=== PATIENT | female | born 1980 | race Caucasian/White ===

== ENCOUNTER 2020-08-25 08:25 | Outpatient (REF) | payer MEDICAID, SELFPAY ==
--- NOTE | 2020-08-25 09:24 | MHC.AU.P13 ---
Adult Audiological Evaluation Date of Visit: 08/25/20 Reason for Appointment: Ms. Hughes reports that she sometimes feels that she cannot hear well. Does patient feel they have a hearing loss?: Unsure Has hearing been tested previously?: No Hearing Handicap Inventory: HHIE SCORE: 6 Based on HHIE score, patient has: No perceived hearing handicap Medical History: Medical History: Unremarkable Medical History Medical History (Other): Seasonal/environmental allergies Medication List: Albuterol Proair inhaler, Vitamin C Otoscopy: Right Ear: Unremarkable Left Ear: Unremarkable Tympanometry: Right Ear: Normal Middle Ear System (Type A) Left Ear: Normal Middle Ear System (Type A) Hearing Evaluation: Transducer(s) Used: Insert Earphones, Bone Conduction Method: Conventional Audiometry Stimuli Used: Pure Tones Right Ear: Description of Hearing: Normal hearing from 250-8000 Hz. Left Ear: Description of Hearing: Normal hearing from 250-8000 Hz. Speech Recognition Threshold (SRT): Method Used: Monitored Live Voice Stimuli Used: Spondee Words Right Ear: 5 dBHL Left Ear: 10 dBHL Word Discrimination: Method: Recorded Lists Word Lists Used: NU-6 Right Ear: 96% at 50 dBHL Left Ear: 92% at 50 dBHL Recommendations: Recommendations: No further audiological action is indicated at this time. Audiological re-evaluation if changes are noted. Diagnosis: Primary Diagnosis: H93.293 Abnormal Auditory Perception Services Performed: Services Performed: Comprehensive Audiological Evaluation (CPT 28086) Tympanometry (CPT 32500) Signature: Provider: Oskar Adam, CCC-A
== END 2020-08-25 08:26 | disposition home or self-care (01) ==
LOC: HO.SH 08:25
PROVIDERS: PCP Internal Medicine; Referring Provider General Practice; Visit Provider General Practice
DX: H93.293 Other abnormal auditory perceptions, bilateral (principal)
CPT/HCPCS: 92557; 92567

== ENCOUNTER 2020-10-29 12:06 | Outpatient (REF) | payer MEDICAID, SELFPAY ==
[2020-10-29 12:55] LABS: Glucose Urine UA NEG (NEG); Leukocyte Esterase Urine NEG (NEG); Nitrite Urine NEG (NEG); PH 5.5 (5.0-8.0); Specific Gravity - Urine >= 1.030 (1.005-1.025); Urine Blood 3+ (NEG); Urine Ketones NEG (NEG); Urine Protein NEG (NEG-TRACE)
[2020-10-29 12:57] LABS: Appearance Urine CLEAR; Color Urine YELLOW
[2020-10-29 13:09] LABS: Bacteria Urine TRACE /LPF; Squamous Epithelial Cell Urine 1+ /LPF; WBC Urine 0-2 /HPF (0-4)
[2020-10-29 13:19] LABS: Creatinine Urine 116.34 mg/dL; Microalbum/Creatinine Ratio Ur 38.6 ug/mg cr
[2020-10-29 13:47] LABS: Blood Urea Nitrogen 20 mg/dL (9-16); Calcium 9.3 mg/dL (8.4-10.2); Estimated Glomerular Filt Rate > 60; Phosphorus 3.3 mg/dL (2.7-4.5)
[2020-10-29 13:56] LABS: Anion Gap 10 (12-20); Carbon Dioxide 27 mmol/L (22-29); Chloride 106 mmol/L (96-108); Potassium 4.5 mmol/L (3.3-5.1); Sodium 138 mmol/L (135-145)
[2020-10-29 15:39] LABS: Renal w Reflex Lab Use Only Order verified
== END 2020-10-29 12:07 | disposition home or self-care (01) ==
LOC: HO.LAB 12:06
PROVIDERS: Visit Provider Internal Medicine Nephrology
DX: R31.9 Hematuria, unspecified (principal)
CPT/HCPCS: 36415; 80051; 81001; 82043; 82310; 82565; 84100; 84520

== ENCOUNTER 2020-11-20 09:10 | Outpatient (REF) | payer MEDICAID, SELFPAY ==
--- NOTE | 2020-11-20 09:15 | EMG_ITS ---
Bilateral median and ulnar motor and sensory studies were performed. Bilateral radial sensory studies were performed and paraspinal muscles were tested. IMPRESSION: Mild bilateral median neuropathy across carpal tunnel. MD DONNY Mckeon/TRISH / [id number]
== END 2020-11-20 09:11 | disposition home or self-care (01) ==
LOC: HO.NEURO 09:10
PROVIDERS: Visit Provider Internal Medicine
DX: G56.03 Carpal tunnel syndrome, bilateral upper limbs (principal)
CPT/HCPCS: 95886; 95911

== ENCOUNTER 2020-12-16 11:52 | Emergency (ER) | payer MEDICAID, SELFPAY ==
--- NOTE | 2020-12-16 | ECG_ITS ---
Test Reason : CHEST PAIN Blood Pressure : / mmHG Vent. Rate : 080 BPM Atrial Rate : 080 BPM P-R Int : 132 ms QRS Dur : 070 ms QT Int : 372 ms P-R-T Axes : 024 015 031 degrees QTc Int : 429 ms Normal sinus rhythm Cannot rule out Anterior infarct , age undetermined Abnormal ECG No previous ECGs available Referred By: Generic ED Physician Electronically Signed By:SIVAN MENDEZ MD
--- NOTE | ~2020-12-16 | XR_ITS ---
EXAMINATION: XR CHEST CLINICAL INFORMATION: Chest pain COMPARISON: Chest x-ray December 31, 2019 TECHNIQUE: 2 views of the chest were obtained. FINDINGS: Cardiac silhouette is normal in size. The lungs are well aerated. There is no lobar consolidation. No pleural effusion or pneumothorax. No acute osseous abnormality. XR/XR chest 2V IMPRESSION: No acute pulmonary pathology.
[2020-12-16 11:54] VITALS: BP 141/92; PULSE 79; RESP 16; TEMP 36.7; O2SAT 98; BMI 41.5
[2020-12-16 14:10] VITALS: PULSE 78
[2020-12-16 14:13] VITALS: BP 143/81; PULSE 76; RESP 16; TEMP 36.7; O2SAT 100
--- NOTE | 2020-12-16 14:34 | ED_ITS ---
HPI - Chest Pain General Chief Complaint: Chest Pain Stated Complaint: chest pain Time Seen by Provider: 12/16/20 14:05 Source: patient Mode of arrival: ambulatory Limitations: no limitations History of Present Illness HPI narrative: 40-year-old female with a past medical history of asthma here with complaints of intermittent chest pain since yesterday. The patient tells me she was seen by her primary care doctor referred into the emergency department for evaluation. She tells me she has episodes of chest pain which, on during rest or with exertion. Comes on sharp and lasts several seconds and then self-resolved. No associated shortness of breath, dizziness, nausea, vomiting, diaphoresis. The patient tells me it is very sharp and hurts when she takes a deep breath. No leg swelling or pain. Patient returned from [place] last Tuesday after a [address] No OCPs. No history of DVTs or PE and no family history MD complaint: chest heaviness Related Data Allergies Allergy/AdvReac Type Severity Reaction Status Date / Time No Known Allergies Allergy Unverified 05/29/20 17:52 Review of Systems Review of Systems: Yes all other systems are reviewed and are negative Constitutional: Constitutional: Reports no additional constitutional complaints, Denies body ache(s), Denies chills, Denies fever(s), Denies headache(s) and Denies weakness Eyes: Eyes: Reports no additional eye complaints and Denies change in vision ENT: Reports system reviewed and no additional complaints, except as documented, Denies dizziness, Denies headache(s), Denies nasal congestion, Denies nasal discharge and Denies neck pain Cardiovascular: Cardiovascular: Reports no additional cardiovascular complaints, Reports chest pain, Denies leg edema and Denies dyspnea Respiratory: Respiratory: Reports no additional respiratory complaints, Denies cough and Denies dyspnea Gastrointestinal: Gastrointestinal: Reports no additional gastrointestinal complaints, Denies abdominal pain, Denies diarrhea, Denies nausea and Denies vomiting Genitourinary: Genitourinary: Reports no additional female genitourinary complaints and Denies urinary incontinence Musculoskeletal: Musculoskeletal: Reports no additional musculoskeletal complaints, Denies back pain, Denies arthralgias, Denies joint swelling, Denies neck pain, Denies numbness and Denies tingling Integumentary/Breasts: Skin/Breast: Reports system reviewed and no additional complaints, except as docu and Denies rash Neurologic: Reports system reviewed and no additional complaints, except as documented, Denies Abnormal speech present, Denies dizziness, Denies headache(s), Denies numbness, Denies tingling and Denies weakness PMFSH Past Medical History Attestation statement: The following information was validated with the patient. Source: old records reviewed and nursing notes reviewed Medical History Asthma Social History Social History Alcohol intake: never Smoking Status: Never smoker Use of substances other than those prescribed or required for medical reasons: No Advance Directives: No Advance Directives Information Provided: No Physical Exam Vital Signs: Vital Signs: Last Vital Signs Temp 98.0 F 12/16/20 14:13 Pulse 75 12/16/20 15:44 Resp 19 12/16/20 15:44 BP 110/52 L 12/16/20 15:44 Pulse Ox 97 12/16/20 15:44 Body Mass Index 41.5 Const: General: cooperative, healthy appearing, comfortable and no acute distress Orientation/consciousness: patient oriented x3 Limitations: no limitations HENMT: Head: Yes normal to inspection Ears: hearing grossly normal bilaterally General nose exam: Normal external nose present Face and sinus: Yes normal facial exam Mouth: Normal oral and palatal mucosa present Throat: Yes posterior oropharynx normal Eyes: General: appearance normal, both eyes and all related structures Pupils: Equal, round and reactive pupils present Neck: Neck: Yes normal visual inspection Chest: Chest palpation & inspection: normal inspection of the chest Resp: Effort & Inspection: normal respiratory effort Auscultation: clear to auscultation bilaterally Cardio: Rate: regular rate Rhythm: regular rhythm Peripheral pulses: Peripheral pulses 2+ throughout GI: Inspection: Yes normal to inspection Palpation (GI): Soft to palpation and nontender Auscultation: normal bowel sounds Back/Spine/Pelvis: Thoracic/Lumbar Spine: thoracic and lumbar spine normal to inspection Skin: General skin exam: no rashes or lesions noted Neuro: General: patient oriented x3, no focal motor deficits and normal sensation to monofilament Cranial nerves: Yes Equal, round and reactive pupils present Cognition (Neuro): normal cognition Speech: No Abnormal speech present Gait exam (Neuro): Normal gait present Motor exam (neuro): 5/5 motor strength present throughout Extrem: General: Yes normal to inspection, Yes no pedal edema and Yes no calf tenderness Course Course Course Narrative: 40-year-old female here with intermittent chest pain since yesterday. No associated symptoms. Did recently have a long car ride. Less likely ACS but can consider PE. Will need labs, EKG, chest x-ray 1515-labs, imaging and EKG all unremarkable. The patient tells me her last episode of chest pain occurred at 08:00 this morning and she does not have any current chest pain. Recommended follow-up with primary care doctor. Reviewed worrisome signs and symptoms when to return to emergency department. Comfortable discharge home. MDM - Chest Pain MDM Narrative Medical decision making narrative: ACS, PE Less likely ACS with symptoms greater than 8 hours, EKG which shows no ischemic changes and a negative troponin. Less likely PE with negative D-dimer, no hypoxia, tachycardia, tachypnea, clinical signs or symptoms of a DVT Medical Records Data Attestation: I reviewed the patient's medical records. Lab Data Attestation: I reviewed the patient's lab results. Result diagrams: 12/16/20 14:34 12/16/20 14:34 Labs: Lab Results 12/16/20 12/16/20 12/16/20 Range/Units 14:34 14:34 14:34 WBC 8.1 (4.8-10.8) X10*3/uL RBC 4.25 (4.20-5.50) X10*6/uL Hgb 11.6 L (12.0-16.0) g/dl Hct 36.0 L (37-47) % MCV 84.7 (80-98) fL MCH 27.3 (27.0-33.0) pg MCHC 32.2 (31.0-35.0) g/dl RDW 13.2 (11.0-16.0) % Plt Count 261 (160-400) X10*3/uL MPV 10.8 (9.4-12.3) fL Immature Gran % (Auto) 0.2 (0.0-0.4) % Neut % (Auto) 61.8 (45-73) % Lymph % (Auto) 30.0 (20-40) % [place] % (Auto) 5.3 (2-11) % Eos % (Auto) 2.2 (0-4) % Baso % (Auto) 0.5 (0-2) % Lymph # (Auto) 2.4 (1.2-4.9) X10*3/uL [place] # (Auto) 0.4 (0.1-1.2) X10*3/uL Eos # (Auto) 0.2 (0.0-0.4) X10*3/uL Baso # (Auto) 0.0 (0.0-0.2) X10*3/uL Abs Immat Gran (auto) 0.02 (0.00-0.03) X10*3/uL Absolute Neuts (auto) 5.0 (2.0-8.3) X10*3/uL Absolute Nucleated RBC 0.000 (0.0-0.012) X10*3/uL Nucleated RBC % (auto) 0.0 (0.0-0.2) /100WBC PT 14.6 H (10.8-13.0) SEC INR 1.2 H (0.9-1.1) D-Dimer < 200 NG/ML Sodium (135-145) mmol/L Potassium (3.3-5.1) mmol/L Chloride (96-108) mmol/L Carbon Dioxide (22-29) mmol/L Anion Gap (12-20) BUN (9-16) mg/dL Creatinine (0.5-1.4) mg/dL Estim Creat Clear Calc Estimated GFR Random Glucose (60-115) mg/dL Calcium (8.4-10.2) mg/dL Magnesium (1.6-2.6) mg/dL Total Bilirubin (0.0-1.0) mg/dL Direct Bilirubin (0.0-0.5) mg/dL AST (5-31) U/L ALT (0-31) U/L Alkaline Phosphatase (39-117) U/L Troponin I High Sens (<3.5-17.0) ng/L Total Protein (6.5-8.0) g/dL Albumin (3.5-5.0) g/dL COVID-19 ([facility]) Negative (Negative) COVID-19 Clin Com See Note 12/16/20 12/16/20 Range/Units 14:34 14:34 WBC (4.8-10.8) X10*3/uL RBC (4.20-5.50) X10*6/uL Hgb (12.0-16.0) g/dl Hct (37-47) % MCV (80-98) fL MCH (27.0-33.0) pg MCHC (31.0-35.0) g/dl RDW (11.0-16.0) % Plt Count (160-400) X10*3/uL MPV (9.4-12.3) fL Immature Gran % (Auto) (0.0-0.4) % Neut % (Auto) (45-73) % Lymph % (Auto) (20-40) % [place] % (Auto) (2-11) % Eos % (Auto) (0-4) % Baso % (Auto) (0-2) % Lymph # (Auto) (1.2-4.9) X10*3/uL [place] # (Auto) (0.1-1.2) X10*3/uL Eos # (Auto) (0.0-0.4) X10*3/uL Baso # (Auto) (0.0-0.2) X10*3/uL Abs Immat Gran (auto) (0.00-0.03) X10*3/uL Absolute Neuts (auto) (2.0-8.3) X10*3/uL Absolute Nucleated RBC (0.0-0.012) X10*3/uL Nucleated RBC % (auto) (0.0-0.2) /100WBC PT (10.8-13.0) SEC INR (0.9-1.1) D-Dimer NG/ML Sodium 139 (135-145) mmol/L Potassium 4.8 (3.3-5.1) mmol/L Chloride 106 (96-108) mmol/L Carbon Dioxide 26 (22-29) mmol/L Anion Gap 12 (12-20) BUN 16 (9-16) mg/dL Creatinine 0.66 (0.5-1.4) mg/dL Estim Creat Clear Calc 120.2 Estimated GFR > 60 Random Glucose 84 (60-115) mg/dL Calcium 8.9 (8.4-10.2) mg/dL Magnesium 2.1 (1.6-2.6) mg/dL Total Bilirubin 0.4 (0.0-1.0) mg/dL Direct Bilirubin < 0.2 (0.0-0.5) mg/dL AST 29 (5-31) U/L ALT 21 (0-31) U/L Alkaline Phosphatase 64 (39-117) U/L Troponin I High Sens 4.2 (<3.5-17.0) ng/L Total Protein 7.3 (6.5-8.0) g/dL Albumin 3.8 (3.5-5.0) g/dL COVID-19 ([facility]ISHA) (Negative) COVID-19 Clin Com Imaging Data Chest x-ray: Attestation: I personally reviewed and interpreted this imaging study as follows: Radiologist's impression: Negative .NO PTX/PNA. ECG Data ECG #1: Attestation: I personally reviewed and interpreted this ECG as follows: ECG interpretation date: 12/16/20 ECG interpretation time: 11:58 Interpretation: Normal sinus rhythm, rate of 80, normal AL, normal QRS, normal QTC Discharge Plan Discharge Clinical Impression: Atypical chest pain Patient Disposition: Home, Self-Care Instructions: Chest Pain (ED) Additional Instructions: Your EKG, x-ray and lab work all looked very good today. Recommend following up with primary care doctor for continued symptoms. Return here for severe chest pain, shortness of breath for any new or concerning symptoms as discussed Referrals: Naomi Alfonso MD [Primary Care Provider] - 2 days Interventions: ED Discharge Assessment Last Done: 12/16/20 15:47 Discharge Date/Time: 12/16/20 15:48
[2020-12-16 14:45] LABS: MANUAL DIFF FLAG NO
[2020-12-16 14:46] LABS: Basophils Percent Auto 0.5 % (0-2); Eosinophils Absolute Auto 0.2 X10*3/uL (0.0-0.4); Eosinophils Percent Auto 2.2 % (0-4); Hemoglobin 11.6 g/dl (12.0-16.0); Imm Gran Abs Auto 0.02 X10*3/uL (0.00-0.03); Imm Gran Pct Auto 0.2 % (0.0-0.4); Lymphocytes Absolute Auto 2.4 X10*3/uL (1.2-4.9); Mean Corpuscular HGB Conc 32.2 g/dl (31.0-35.0); Mean Corpuscular Hemoglobin 27.3 pg (27.0-33.0); Mean Corpuscular Volume 84.7 fL (80-98); Mean Platelet Volume 10.8 fL (9.4-12.3); Monocytes Absolute Auto 0.4 X10*3/uL (0.1-1.2); Monocytes Percent Auto 5.3 % (2-11); Neutrophils Percent Auto 61.8 % (45-73); Platelet Count 261 X10*3/uL (160-400); Red Blood Count 4.25 X10*6/uL (4.20-5.50); Red Cell Distribution Width 13.2 % (11.0-16.0); White Blood Count 8.1 X10*3/uL (4.8-10.8)
[2020-12-16 14:55] LABS: INTERNATIONAL NORM RATIO 1.2 (0.9-1.1); Prothrombin Time 14.6 SEC (10.8-13.0)
[2020-12-16 14:58] LABS: D Dimer < 200 NG/ML
[2020-12-16 15:02] LABS: COVID-19 Test Negative (Negative)
[2020-12-16 15:11] LABS: Alanine Aminotransferase 21 U/L (0-31); Albumin Level 3.8 g/dL (3.5-5.0); Alkaline Phosphatase 64 U/L (39-117); Anion Gap 12 (12-20); Aspartate Amino Transferase 29 U/L (5-31); Bilirubin Direct < 0.2 mg/dL (0.0-0.5); Bilirubin Total 0.4 mg/dL (0.0-1.0); Blood Urea Nitrogen 16 mg/dL (9-16); Calcium 8.9 mg/dL (8.4-10.2); Carbon Dioxide 26 mmol/L (22-29); Chloride 106 mmol/L (96-108); Creatinine Clr Calc Pharmacy 120.2; Estimated Glomerular Filt Rate > 60; Glucose Random 84 mg/dL (60-115); Magnesium 2.1 mg/dL (1.6-2.6); Potassium 4.8 mmol/L (3.3-5.1); Sodium 139 mmol/L (135-145); Total Protein 7.3 g/dL (6.5-8.0)
[2020-12-16 15:13] LABS: Troponin-I High Sensitivity 4.2 ng/L (<3.5-17.0)
[2020-12-16 15:44] VITALS: BP 110/52; PULSE 75; RESP 19; O2SAT 97
== END 2020-12-16 15:48 | disposition home or self-care (01) ==
PROVIDERS: Nurse Practitioner Family; Emergency Provider Emergency Medicine; PCP Internal Medicine
DX: R07.89 Other chest pain (principal); Z20.822 Contact with and (suspected) exposure to COVID-19
CPT/HCPCS: 36415; 71046; 80048; 80076; 83735; 84484; 85025; 85379; 85610; 87635; 93005; 99284

== ENCOUNTER → 2020-12-31 09:18 | Outpatient (BNVA) | payer MEDICAID, SELFPAY | PROVIDERS: PCP Internal Medicine; Visit Provider Orthopaedic Surgery | DX: G56.03 Carpal tunnel syndrome, bilateral upper limbs (principal) | CPT/HCPCS: 99202 ==

== ENCOUNTER → 2021-04-20 09:41 | Outpatient (BNVA) | payer MEDICAID, SELFPAY | PROVIDERS: PCP Internal Medicine; Visit Provider Physician Assistant | DX: G56.03 Carpal tunnel syndrome, bilateral upper limbs (principal) | CPT/HCPCS: 99212 ==

== ENCOUNTER 2021-06-18 11:47 | Day surgery (SDC) | payer MEDICAID, SELFPAY ==
[2021-02-18 13:01] VITALS: BMI 41.5
[2021-06-18 12:15] VITALS: BP 143/86; PULSE 98; RESP 15; TEMP 37.2; O2SAT 98; BMI 41.5
--- NOTE | 2021-06-18 13:43 | MHC.SHP ---
Pre-Procedural Eval Section A Date of Service: 06/18/21 The patient is an INPATIENT: No Changes since office visit: No Cold of Flu in the past 2 weeks, No New Medical Problems, No Changes in Medication and No Patient answered all questions The History & Physical has been completed within 30 days and I have reviewed it.: Yes Section B Chief Complaint: carpal tunnel syndrome Allergies: Allergies Allergy/AdvReac Type Severity Reaction Status Date / Time No Known Allergies Allergy Verified 04/20/21 09:46 Plan I have reviewed the history and physical and performed a pertinent physical examination on my patient. No changes have occurred unless specified.
--- NOTE | 2021-06-18 13:44 | W.PM.OPN ---
Operative Note Operative Note Date of Service: 06/18/21 Narrative: Preop diagnosis: 1. Left Carpal tunnel syndrome Postop diagnosis: same Procedure: 1. Left Carpal tunnel release Surgeon: Sari Veliz MD Anesthesia: local block using 1% lidocaine with epinephrine Findings: Thickened transverse carpal ligament. EBL: Less than 5 mL Specimens: None Complications: None Disposition: Brought to recovery room in stable condition Plan: Follow-up for 7-10 days for wound check and suture removal Indications: The patient is 41 years old, with left carpal tunnel syndrome that has been unresponsive to nonoperative management. The risks and benefits of operative treatment including but not limited to risk of damage to blood vessels, nerves, tendons, infection, persistent pain, persistent symptoms, or possible need for additional surgery were discussed with the patient and the patient wishes to proceed with surgery. Procedure: Once consent was obtained a local block was performed using a combination of 1% lidocaine with epinephrine. The patient was then brought back to the operating suite and placed on the operative table in supine position. A tourniquet was applied to the proximal aspect of the left upper extremity and the limb was prepped and draped in a standard surgical fashion. Once assured that we had a good block, a 1.5 cm longitudinal incision was made centered over the carpal tunnel. The incision was made through the skin to the subcutaneous tissues using a #15 blade. Dissection was made down to the level of the transverse carpal ligament with care being taken to protect the palmar cutaneous nerve. Once the transverse carpal ligament was clearly visualized, a longitudinal incision was made in the transverse carpal ligament 1st using a #15 blade, then using tenotomy scissors under direct visualization. Care was taken to look for and protect the motor branch of the median nerve when seen in this area. Once satisfied with our carpal tunnel release the wound was copiously irrigated with normal saline and hemostasis was obtained with a brief period of local pressure. The skin edges were reapproximated with some 5.0 nylon suture material and a sterile dressing was applied. The patient appears to have tolerated the procedure well and with no complications. All digits were well vascularized at the conclusion of the case.
[2021-06-18 14:18] VITALS: BP 122/86; PULSE 107; RESP 20; TEMP 37.6; O2SAT 97
== END 2021-06-18 14:23 | disposition home or self-care (01) ==
PROVIDERS: PCP Internal Medicine; Visit Provider Orthopaedic Surgery
PROC: (CPT 64721; principal; 2021-06-18 12:50)
DX: G56.02 Carpal tunnel syndrome, left upper limb (principal); J45.909 Unspecified asthma, uncomplicated
CPT/HCPCS: 64721

== ENCOUNTER → 2021-06-30 11:30 | Outpatient (BNVA) | payer MEDICAID, SELFPAY | PROVIDERS: Visit Provider Orthopaedic Surgery | DX: G56.03 Carpal tunnel syndrome, bilateral upper limbs (principal) | CPT/HCPCS: 99212 ==

== ENCOUNTER → 2022-06-10 08:48 | Outpatient (BNVA) | payer MEDICAID, SELFPAY | PROVIDERS: PCP Internal Medicine; Referring Provider Internal Medicine; Visit Provider Internal Medicine | DX: R07.2 Precordial pain (principal) | CPT/HCPCS: 93005; 99202 ==

== ENCOUNTER 2022-12-29 13:18 | Outpatient (REF) | payer MEDICAID, SELFPAY ==
--- NOTE | ~2022-12-29 | MM_ITS ---
EXAMINATION: MM SCREENING DIGITAL BREAST TOMOSYNTHESIS, BILATERAL CLINICAL INFORMATION: Screening. Asymptomatic. The lifetime risk of breast cancer based on the Tyrer-Cuzick Model is 13%. COMPARISON: Mammography: October 17, 2019 and ultrasound of October 26, 1999 TECHNIQUE: Digital breast tomosynthesis is performed in both the craniocaudal and mediolateral oblique views along with computer-aided detection (CAD). Synthesized 2D images are generated from the tomosynthesis. FINDINGS: There are scattered areas of fibroglandular density (ACR BI-RADS breast composition Category b). There are no significant masses, abnormal calcifications, or other abnormalities. MM/MM tomosynthesis screening BI IMPRESSION: No significant changes from prior exam. ASSESSMENT: BI-RADS 1: Negative RECOMMENDATION: Routine annual mammography screening. This patient's information was entered into a reminder system with a target due date for their next mammogram.
== END 2022-12-29 13:19 | disposition home or self-care (01) ==
LOC: HO.MAMMO 13:18
PROVIDERS: Visit Provider Internal Medicine
DX: Z12.31 Encounter for screening mammogram for malignant neoplasm of breast (principal)
CPT/HCPCS: 77063; 77067

== ENCOUNTER 2023-11-13 08:29 | Emergency (ER) | payer MEDICAID, SELFPAY ==
--- NOTE | ~2023-11-13 | CT_ITS ---
EXAMINATION: CT ABDOMEN AND PELVIS WITHOUT CONTRAST CLINICAL INFORMATION: Flank pain, history of stones COMPARISON: None available. TECHNIQUE: Multidetector volumetric imaging was performed from the superior aspect of the liver through the pubic symphysis. Sagittal and coronal reformatted images were obtained on the technologist's workstation. This CT examination was performed using dose optimization techniques as appropriate, variously including the following: *Automated exposure control *Adjustment of mA and/or kV according to patient size (this includes techniques or standardized protocols for targeted exams where dose is matched to indication/reason for exam; i.e. extremities or head) *Use of iterative reconstruction technique DLP: 619 mGy-cm FINDINGS: LUNG BASES: The visualized lung bases are unremarkable. LIVER, GALLBLADDER, AND BILIARY TREE: The liver is normal in size, shape, and attenuation. No focal hepatic lesion or biliary ductal dilatation is present. The gallbladder is unremarkable with no evidence of radiopaque gallstones, gallbladder wall thickening, or obvious pericholecystic inflammatory changes. PANCREAS: Unremarkable. SPLEEN: Unremarkable. ADRENAL GLANDS: Unremarkable. KIDNEYS AND URETERS: The kidneys are normal in size, shape, and attenuation. No hydronephrosis, hydroureter, or calculi seen. No perinephric stranding. BLADDER: Unremarkable. GASTROINTESTINAL TRACT: The small and large bowel are unremarkable. The appendix is unremarkable. ABDOMINAL WALL: No significant hernia is appreciated. LYMPH NODES: Normal. VASCULAR: Unremarkable. PELVIC VISCERA: Unremarkable. 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 CT/CT abdomen pelvis wo IV con IMPRESSION: No acute findings in the abdomen or pelvis. In particular, there are no radiopaque renal or ureteral calculi. Fleischner guidelines were followed.
[2023-11-13 08:41] VITALS: BP 140/89; PULSE 82; RESP 16; TEMP 36.9; O2SAT 98; BMI 41.6
[2023-11-13 09:01] LABS: MANUAL DIFF FLAG NO
[2023-11-13 09:02] LABS: Basophils Percent Auto 0.5 % (0-2); Eosinophils Absolute Auto 0.2 X10*3/uL (0.0-0.4); Eosinophils Percent Auto 2.7 % (0-4); Hematocrit 36.1 % (37.0-47.0); Hemoglobin 11.8 g/dl (12.0-16.0); Imm Gran Abs Auto 0.01 X10*3/uL (0.00-0.03); Imm Gran Pct Auto 0.2 % (0.0-0.4); Lymphocytes Absolute Auto 1.9 X10*3/uL (1.2-4.9); Lymphocytes Percent Auto 31.7 % (20-40); Mean Corpuscular HGB Conc 32.7 g/dl (31.0-35.0); Mean Corpuscular Hemoglobin 26.9 pg (27.0-33.0); Mean Corpuscular Volume 82.4 fL (80.0-98.0); Mean Platelet Volume 10.6 fL (9.4-12.3); Monocytes Absolute Auto 0.3 X10*3/uL (0.1-1.2); Monocytes Percent Auto 5.5 % (2-11); Neutrophils Absolute Auto 3.6 x10*3/uL (2.0-8.3); Neutrophils Percent Auto 59.4 % (45-73); Platelet Count 288 X10*3/uL (160-400); Red Blood Count 4.38 X10*6/uL (4.20-5.50); Red Cell Distribution Width 13.2 % (11.0-16.0)
[2023-11-13 09:18] LABS: COVID-19 Test Negative (Negative); IDNOW Serial# 08D9AD1C; IDNOW Serial# 152EDE1D; Influenza A Negative (Negative); Influenza B2 Negative (Negative)
[2023-11-13 09:19] LABS: Alanine Aminotransferase 13 U/L (0-31); Albumin Level 3.7 g/dL (3.5-5.0); Alkaline Phosphatase 56 U/L (39-117); Anion Gap 11 (12-20); Aspartate Amino Transferase 17 U/L (5-31); Bilirubin Total 0.3 mg/dL (0.0-1.0); Blood Urea Nitrogen 18 mg/dL (9-16); Carbon Dioxide 24 mmol/L (22-29); Chloride 109 mmol/L (96-108); Creatinine Clr Calc Pharmacy 106.8; Estimated Glomerular Filt Rate > 60; Glucose Random 101 mg/dL (60-115); Sodium 140 mmol/L (135-145); Total Protein 7.2 g/dL (6.5-8.0)
[2023-11-13 12:03] VITALS: BP 128/64; PULSE 70; RESP 16; TEMP 36.7; O2SAT 98
--- NOTE | 2023-11-13 12:24 | ED_ITS ---
HPI - General Adult General Chief complaint: Abdominal Pain Stated complaint: Abd & back pain Time Seen by Provider: 11/13/23 12:24 Source: patient Mode of arrival: ambulatory Limitations: no limitations History of Present Illness HPI narrative: Patient is a 43 year old assigned female at with no reported medical history presenting to the emergency department today with bilateral flank pain. Patient states that over the last couple of days she has had bilateral flank pain that radiates into her abdomen. Patient denies any dizziness, lightheadedness, nausea, vomiting, fever, chills, blurry vision, double vision, loss of vision, chest pain, difficulty breathing, shortness of breath, back pain, night sweats, pain with urination, increased urinary frequency, increased urinary urgency, blood in her urine or stool, syncope or a near syncopal episode, recent trauma or falls, bowel incontinence, bladder incontinence, bowel retention, bladder retention, or any other complaints at this time. Onset (ago): day(s) (2) Severity: mild Severity scale (1-10): 3 Relieving factors: none Exacerbating factors: none Associated symptoms: denies other symptoms Treatments prior to arrival: none Related Data Home Medications Medication Instructions Recorded Confirmed cholecalciferol (vitamin D3) 50 50 mcg PO DAILY 06/10/22 06/10/22 mcg (2,000 unit) capsule Allergies Allergy/AdvReac Type Severity Reaction Status Date / Time No Known Allergies Allergy Verified 11/01/23 15:20 Review of Systems 2 Constitutional: Constitutional: Reports no additional constitutional complaints, Denies chills, Denies fever(s) and Denies night sweats Eyes: Eyes: Reports no additional eye complaints, Denies blurry vision, Denies change in vision, Denies diplopia, Denies eye discharge, Denies loss of vision and Denies eye pain ENT: Denies dizziness Cardiovascular: Cardiovascular: Reports no additional cardiovascular complaints, Denies chest pain, Denies lightheadedness, Denies Loss of Consciousness and Denies dyspnea Respiratory: Respiratory: Reports no additional respiratory complaints and Denies dyspnea Gastrointestinal: Gastrointestinal: Reports no additional gastrointestinal complaints, Denies abdominal pain, Denies melena, Denies hematochezia, Denies change in bowel habits and Denies change in stool character Genitourinary: Genitourinary: Denies hematuria, Denies urinary frequency, Denies dysuria, Denies urinary incontinence, Denies urinary hesitancy and Denies urinary urgency Comments: bilateral flank pain Musculoskeletal: Musculoskeletal: Reports no additional musculoskeletal complaints, Denies numbness and Denies tingling Neurologic: Denies dizziness, Denies loss of vision, Denies numbness and Denies tingling Psychiatric: Psychiatric: Reports no additional psychiatric complaints Endocrine: Endocrine: Reports no additional endocrine complaints Hematologic/Lymphatic: Hematologic/Lymphatic: Reports no additional hematologic/lymphatic complaints Allergic/Immunologic: Allergic/Immunologic: Reports no additional allergic/immunologic complaints PMFSH Past Medical History Attestation statement: The following information was validated with the patient. Source: old records reviewed and nursing notes reviewed Medical History Asthma Surgical History History of carpal tunnel surgery of left wrist Family History Family History Father No problems noted. Mother Stroke Social History Social History Alcohol intake: never Patient Tobacco Use Status: Never used Tobacco Smoked in Last 30 Days: No Use of substances other than those prescribed or required for medical reasons: No Advance Directives: No Advance Directives Information Provided: Yes Patient : No Current occupational status: unemployed Current occupation: right handed Physical Exam ED Vital Signs: Vital Signs - 24 hr 11/13/23 08:41 11/13/23 12:03 Temperature 98.4 F 98.0 F Pulse Rate 82 70 Respiratory Rate 16 16 Blood Pressure 140/89 H 128/64 Pulse Oximetry 98 98 Oxygen Delivery Method Room Air Room Air BMI result Body Mass Index 41.6 Const General: cooperative, no acute distress, alert and awake Nutritional Appearance: well nourished Orientation/consciousness: patient oriented x3 Limitations: no limitations HENMT Head: Yes normal to inspection and Yes atraumatic Ears: hearing grossly normal bilaterally and external ears normal General nose exam: Normal external nose present, no nasal discharge noted and no epistaxis Face and sinus: Yes normal facial exam, No abrasion and No laceration Mouth: Normal oral and palatal mucosa present, no drooling and no muffled voice Eyes General: appearance normal, both eyes and all related structures Periorbital: periorbital findings normal Eyelids: Yes eyelids normal Conjunctivae: conjunctivae normal Pupils: Equal, round and reactive pupils present EOM: EOMs intact bilaterally Neck Neck: Yes normal visual inspection, Yes full ROM and Yes no lymphadenopathy Chest Chest palpation & inspection: normal inspection of the chest Resp Effort & Inspection: normal respiratory effort and able to speak in complete sentences GI Inspection: Yes normal to inspection Palpation (GI): Soft to palpation, not firm, nontender and no guarding Neuro General: patient oriented x3 and moves all extremities Cranial nerves: Yes Equal, round and reactive pupils present Cognition (Neuro): normal cognition Motor exam (neuro): 5/5 motor strength present throughout Sensory Exam: Normal double simultaneous stimulation for sensation Coordination: [id number] test normal Extrem General: Yes normal to inspection, Yes full ROM and Yes capillary refill normal Psych Appearance: grossly normal Mental Status: mental status grossly normal Affect: normal affect Attitude: cooperative Thought process: Normal thought process present Thought content: Normal thought content present Insight: Good insight present (Psych) Medications Administered Generic Name Dose Route Start Last Admin Trade Name Freq PRN Reason Stop Dose Admin Sodium Chloride 1,000 mls @ 999 mls/hr 11/13/23 12:30 11/13/23 12:32 Ns IV 11/13/23 13:30 999 mls/hr .[id number] KEVIN Administration Discontinued Medications Generic Name Dose Route Start Last Admin Trade Name Freq PRN Reason Stop Dose Admin Ketorolac Tromethamine 15 mg 11/13/23 12:25 11/13/23 12:36 Ketorolac Tromethamine 15 Mg/Ml Vial IVPUSH 11/13/23 12:26 15 mg ONCE ONE Administration Pantoprazole Sodium 40 mg 11/13/23 12:25 11/13/23 12:36 Pantoprazole Sodium 40 Mg/10 Ml Vial IVPUSH 11/13/23 12:26 40 mg ONCE ONE Administration Medical Decision Making Medical Decision Making [facility] Narrative: Patient is a 43 year old assigned female at with no reported medical history presenting to the emergency department today with bilateral flank pain and abdominal pain. Patient's physical exam was unremarkable. Patient's blood work was unremarkable. Patient's urine showed no acute process. Patient's abdomen/pelvis CT showed no acute process. I explained my physical exam findings as well as all test results to the patient. I answered all questions asked by the patient. I stressed the importance of the patient taking her medication as prescribed. I stressed the importance of the patient following up with her primary care provider. I stressed the importance of the patient returning to the emergency department immediately if her symptoms were to worsen or if she were to develop any dizziness, shortness of breath, difficulty breathing, chest pain, blurry vision, loss of vision, nausea, vomiting, abdominal pain, fever, chills, back pain, or any other complaints. Patient verbalized agreement and understanding with this treatment plan and discharge. Differential Diagnosis Differential Diagnoses: The differential diagnosis associated with the presentation includes Flank pain Kidney stone UTI Admission/Observation Consideration of admission/observation: Escalation of care including admission/observation considered Patient would have been admitted to the hospital had her work up had any findings where hospital admission was appropriate and her clinical presentation warranted hospital admission. Lab Data [facility] Lab Attestation statement: I reviewed the patient's lab results. My interpretation of these results are in the [facility] Rationale portion of this note. 11/13/23 08:56 11/13/23 08:56 Labs: Lab Results 11/13/23 11/13/23 11/13/23 Range/Units 08:53 08:56 12:26 WBC 6.0 (4.8-10.8) X10*3/uL RBC 4.38 (4.20-5.50) X10*6/uL Hgb 11.8 L (12.0-16.0) g/dl Hct 36.1 L (37.0-47.0) % MCV 82.4 (80.0-98.0) fL MCH 26.9 L (27.0-33.0) pg MCHC 32.7 (31.0-35.0) g/dl RDW 13.2 (11.0-16.0) % Plt Count 288 (160-400) X10*3/uL MPV 10.6 (9.4-12.3) fL Immature Gran % (Auto) 0.2 (0.0-0.4) % Neut % (Auto) 59.4 (45-73) % Lymph % (Auto) 31.7 (20-40) % [place] % (Auto) 5.5 (2-11) % Eos % (Auto) 2.7 (0-4) % Baso % (Auto) 0.5 (0-2) % Lymph # (Auto) 1.9 (1.2-4.9) X10*3/uL [place] # (Auto) 0.3 (0.1-1.2) X10*3/uL Eos # (Auto) 0.2 (0.0-0.4) X10*3/uL Baso # (Auto) 0.0 (0.0-0.2) X10*3/uL Abs Immat Gran (auto) 0.01 (0.00-0.03) X10*3/uL Absolute Neuts (auto) 3.6 (2.0-8.3) x10*3/uL Absolute Nucleated RBC 0.000 (0.0-0.012) X10*3/uL Nucleated RBC % (auto) 0.0 (0.0-0.2) /100WBC Sodium 140 (135-145) mmol/L Potassium 4.0 (3.3-5.1) mmol/L Chloride 109 H (96-108) mmol/L Carbon Dioxide 24 (22-29) mmol/L Anion Gap 11 L (12-20) BUN 18 H (9-16) mg/dL Creatinine 0.72 (0.5-1.4) mg/dL Estim Creat Clear Calc 106.8 Estimated GFR > 60 Random Glucose 101 (60-115) mg/dL Calcium 9.0 (8.4-10.2) mg/dL Total Bilirubin 0.3 (0.0-1.0) mg/dL AST 17 (5-31) U/L ALT 13 (0-31) U/L Alkaline Phosphatase 56 (39-117) U/L Total Protein 7.2 (6.5-8.0) g/dL Albumin 3.7 (3.5-5.0) g/dL Urine Color Yellow Urine Appearance Clear Urine pH 7.0 (5.0-9.0) Ur Specific [place] 1.020 (1.005-1.025) Urine Protein Negative (Neg-Trace) mg/dL Urine Glucose (UA) Negative (Negative) mg/dL Urine Ketones Negative (Negative) mg/dL Urine Blood Moderate (2+) H (Negative) Urine Nitrite Negative (Negative) Ur Leukocyte Esterase Negative (Negative) Urine RBC 11-20 H (0-2) /HPF Urine WBC 0-5 (0-5) /HPF Ur Squamous Epith Cells 3-5 (0-2) /HPF Urine Bacteria None Seen (None Seen) Hyaline Casts 0-2 (0-2) /LPF COVID-19 (TANISHA) Negative (Negative) COVID-19 Clin Com See Note Influenza Type A (SUSAN) Negative (Negative) Influenza Type B (SUSAN) Negative (Negative) Influenza A & B Note See Note Independent Interpretation I performed an independent interpretation of an: CT Scan Interpretation: My interpretation is in agreement with the radiologist's impression of this imaging study. - EXAMINATION: CT ABDOMEN AND PELVIS WITHOUT CONTRAST CLINICAL INFORMATION: Flank pain, history of stones COMPARISON: None available. TECHNIQUE: Multidetector volumetric imaging was performed from the superior aspect of the liver through the pubic symphysis. Sagittal and coronal reformatted images were obtained on the technologist's workstation. This CT examination was performed using dose optimization techniques as appropriate, variously including the following: *Automated exposure control *Adjustment of mA and/or kV according to patient size (this includes techniques or standardized protocols for targeted exams where dose is matched to indication/reason for exam; i.e. extremities or head) *Use of iterative reconstruction technique DLP: 619 mGy-cm FINDINGS: LUNG BASES: The visualized lung bases are unremarkable. LIVER, GALLBLADDER, AND BILIARY TREE: The liver is normal in size, shape, and attenuation. No focal hepatic lesion or biliary ductal dilatation is present. The gallbladder is unremarkable with no evidence of radiopaque gallstones, gallbladder wall thickening, or obvious pericholecystic inflammatory changes. PANCREAS: Unremarkable. SPLEEN: Unremarkable. ADRENAL GLANDS: Unremarkable. KIDNEYS AND URETERS: The kidneys are normal in size, shape, and attenuation. No hydronephrosis, hydroureter, or calculi seen. No perinephric stranding. BLADDER: Unremarkable. GASTROINTESTINAL TRACT: The small and large bowel are unremarkable. The appendix is unremarkable. ABDOMINAL WALL: No significant hernia is appreciated. LYMPH NODES: Normal. VASCULAR: Unremarkable. PELVIC VISCERA: Unremarkable. 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 CT/CT abdomen pelvis wo IV con IMPRESSION: No acute findings in the abdomen or pelvis. In particular, there are no radiopaque renal or ureteral calculi. Fleischner guidelines were followed. Dictated By: Jomar Castillo MD Signed By: Electronically signed by Jomar Castillo MD 11/13/23 1139 Radiology Impression Discussion of test interpretation with radiology: I have reviewed the radiologist's reading. Discharge Plan Discharge Clinical Impression: Flank pain Patient Disposition: Home, Self-Care Instructions: Flank Pain (ED) Additional Instructions: Follow up with your primary care provider. Return to the emergency department immediately if your symptoms worsen or if you develop any dizziness, shortness of breath, difficulty breathing, chest pain, blurry vision, loss of vision, nausea, vomiting, abdominal pain, fever, chills, back pain, or any other complaints. Prescriptions: No Action cholecalciferol (vitamin D3) 50 mcg (2,000 unit) capsule 50 mcg PO DAILY Referrals: Naomi Alfonso MD [Primary Care Provider] - Stand Alone Forms: Work/School Release Print Language: Colombian
[2023-11-13 12:32] LABS: Appearance Urine Clear; Color Urine Yellow; Glucose Urine UA Negative (Negative); Leukocyte Esterase Urine Negative (Negative); Nitrite Urine Negative (Negative); UMIC TRIGGER UACC YES; Urine Blood Moderate (2+) (Negative); Urine Ketones Negative (Negative); Urine Protein Negative (Neg-Trace)
[2023-11-13] MEDS: 0.9 % Sodium Chloride 1,000 ML 999 ML IV (12:32)
[2023-11-13 12:34] LABS: Bacteria Urine None Seen (None Seen); Hyaline Casts Urine 0-2 /LPF (0-2); WBC Urine 0-5 /HPF (0-5)
[2023-11-13] MEDS: Pantoprazole Sodium 40 MG/10 ML VIAL IVPUSH (12:36)
[2023-11-13] MEDS: Ketorolac Tromethamine 15 MG/ML VIAL IVPUSH (12:36)
--- NOTE | 2023-11-13 13:51 | PC.NURSE ---
pt verbalizing pain level decreased to a 0/10 post medication administration. IVF continues to infuse a this time. will discharge pt when fluids completely infuse.
== END 2023-11-13 13:59 | disposition home or self-care (01) ==
PROVIDERS: Physician Assistant Medical; Emergency Provider Student in an Organized Health Care Education/Training Program; PCP Internal Medicine
DX: R10.9 Unspecified abdominal pain (principal); M54.50 Low back pain, unspecified; R11.2 Nausea with vomiting, unspecified; Z79.899 Other long term (current) drug therapy; Z11.52 Encounter for screening for COVID-19
CPT/HCPCS: 74176; 80053; 81001; 85025; 87502; 87635; 96361; 96374; 96375; 99284; 99285; C9113; J1885

== ENCOUNTER 2023-12-08 07:59 | Outpatient (REF) | payer MEDICAID, SELFPAY ==
[2023-12-08 11:23] LABS: MANUAL DIFF FLAG NO
[2023-12-08 11:28] LABS: Basophils Percent Auto 0.5 % (0-2); Eosinophils Absolute Auto 0.2 X10*3/uL (0.0-0.4); Eosinophils Percent Auto 3.1 % (0-4); Hematocrit 36.4 % (37.0-47.0); Hemoglobin 11.7 g/dl (12.0-16.0); Imm Gran Abs Auto 0.01 X10*3/uL (0.00-0.03); Imm Gran Pct Auto 0.2 % (0.0-0.4); Lymphocytes Absolute Auto 1.9 X10*3/uL (1.2-4.9); Lymphocytes Percent Auto 33.7 % (20-40); Mean Corpuscular HGB Conc 32.1 g/dl (31.0-35.0); Mean Corpuscular Hemoglobin 26.9 pg (27.0-33.0); Mean Corpuscular Volume 83.7 fL (80.0-98.0); Mean Platelet Volume 11.3 fL (9.4-12.3); Monocytes Absolute Auto 0.3 X10*3/uL (0.1-1.2); Monocytes Percent Auto 5.4 % (2-11); Neutrophils Absolute Auto 3.2 x10*3/uL (2.0-8.3); Neutrophils Percent Auto 57.1 % (45-73); Platelet Count 253 X10*3/uL (160-400); Red Blood Count 4.35 X10*6/uL (4.20-5.50); Red Cell Distribution Width 13.4 % (11.0-16.0); White Blood Count 5.5 X10*3/uL (4.8-10.8)
[2023-12-08 11:55] LABS: Alanine Aminotransferase 14 U/L (0-31); Albumin Level 3.6 g/dL (3.5-5.0); Alkaline Phosphatase 60 U/L (39-117); Anion Gap 11 (12-20); Aspartate Amino Transferase 18 U/L (5-31); Bilirubin Direct 0.1 mg/dL (0.0-0.5); Bilirubin Total 0.3 mg/dL (0.0-1.0); Blood Urea Nitrogen 14 mg/dL (9-16); Calcium 9.1 mg/dL (8.4-10.2); Carbon Dioxide 28 mmol/L (22-29); Chloride 106 mmol/L (96-108); Cholesterol 179 mg/dL (<200); Estimated Glomerular Filt Rate > 60; Glucose Random 96 mg/dL (60-115); HDL Cholesterol 34 mg/dL (>40); LDL Cholesterol Calculated 117 mg/dL (<100); Potassium 4.3 mmol/L (3.3-5.1); Sodium 141 mmol/L (135-145); Total Protein 7.1 g/dL (6.5-8.0); Triglycerides 144 mg/dL (<150)
[2023-12-08 12:00] LABS: TSH reflex Free T4 1.63 uIU/mL (0.32-4.0)
[2023-12-09 04:17] LABS: HIV Num 1 1.13 S/CO (0.00-0.99); ~HepC Num1 0.18 S/CO (0.00-0.79); ~Hepatitis C Antibody Nonreactive (Nonreactive)
[2023-12-09 05:07] LABS: HIV AB/AG Nonreactive (Nonreactive); HIV Num 2 0.06 S/CO; HIV Num 3 0.05 S/CO
== END 2023-12-08 08:00 | disposition home or self-care (01) ==
LOC: HO.HHCL 07:59
PROVIDERS: Visit Provider Internal Medicine
DX: Z00.00 Encounter for general adult medical examination without abnormal findings (principal)
CPT/HCPCS: 36415; 80048; 80061; 80076; 84443; 85025; 86803; 87389

== ENCOUNTER 2024-06-12 10:14 | Outpatient (REF) | payer MEDICAID, SELFPAY ==
[2024-06-12 11:22] LABS: Estimated Average Glucose 111 mg/dL; Hemoglobin A1C 105.2254 umol/L; Hemoglobin A1c % 5.5 % (<6.0); Total Hemoglobin (HGBA1C) 2874.7781 umol/L
== END 2024-06-12 10:15 | disposition home or self-care (01) ==
LOC: HO.HHCL 10:14
PROVIDERS: Visit Provider Internal Medicine
DX: E66.813 Obesity, class 3 (principal); E66.01 Morbid (severe) obesity due to excess calories; Z68.41 Body mass index [BMI] 40.0-44.9, adult
CPT/HCPCS: 36415; 83036

== ENCOUNTER 2024-08-17 08:54 | Outpatient (REF) | payer MEDICAID, SELFPAY ==
--- NOTE | ~2024-08-17 | MM_ITS ---
EXAMINATION: MM SCREENING DIGITAL BREAST TOMOSYNTHESIS, BILATERAL CLINICAL INFORMATION: Screening. Asymptomatic. COMPARISON: Mammography: Comparison is made with available priors TECHNIQUE: Digital breast mammography with tomosynthesis is performed in both the craniocaudal and mediolateral oblique views along with computer-aided detection (CAD). FINDINGS: There are scattered areas of fibroglandular density (ACR BI-RADS breast composition Category b). There are no significant masses, abnormal calcifications, or other abnormalities. MM/MM tomosynthesis screening BI IMPRESSION: No mammographic evidence of malignancy. 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 Recommend clinical evaluation and if it is deemed clinically significant or new symptoms a diagnostic workup can be ordered and performed. ASSESSMENT: BI-RADS BI-RADS 1 - Negative RECOMMENDATION: Routine annual mammography screening. 1 year F/U This examination should not preclude the clinical evaluation of a suspicious palpable abnormality. This patient's information was entered into a reminder system with a target due date for their next mammogram. Electronically signed by: Ena Downing DO 08/23/2024 10:11 AM SVETLANA FRANKS
== END 2024-08-17 08:55 | disposition home or self-care (01) ==
LOC: HO.MAMMO 08:54
PROVIDERS: PCP Internal Medicine; Visit Provider Internal Medicine
DX: Z12.31 Encounter for screening mammogram for malignant neoplasm of breast (principal)
CPT/HCPCS: 77063; 77067

== ENCOUNTER → 2024-08-17 09:15 | Outpatient (BNV) | payer MEDICAID, SELFPAY | PROVIDERS: PCP Internal Medicine; Visit Provider Internal Medicine | DX: Z12.31 Encounter for screening mammogram for malignant neoplasm of breast (principal) | CPT/HCPCS: 77063; 77067 ==

== ENCOUNTER 2024-10-18 08:56 | Outpatient (REF) | payer MEDICAID, SELFPAY ==
[2024-10-19 02:05] LABS: CT PCR NOT DETECTED (Not Detect.); NG PCR NOT DETECTED (Not Detect.)
[2024-10-19 11:23] LABS: Bacterial Vaginosis PCR NEGATIVE (Negative); Candida Group PCR NOT DETECTED (Not Detect); Candida glab krusei PCR NOT DETECTED (Not Detect); Trichomonas vaginalis PCR NOT DETECTED (Not Detect)
[2024-10-31 14:07] LABS: HPV Genotype 16 Negative (Negative); HPV Genotype 18 Negative (Negative); HPV High Risk Positive (Negative)
== END 2024-10-18 08:57 | disposition home or self-care (01) ==
LOC: HO.LNP 08:56
PROVIDERS: PCP Internal Medicine; Visit Provider Advanced Practice Midwife
DX: R87.810 Cervical high risk human papillomavirus (HPV) DNA test positive (principal); N93.9 Abnormal uterine and vaginal bleeding, unspecified; N92.1 Excessive and frequent menstruation with irregular cycle; Z32.02 Encounter for pregnancy test, result negative
CPT/HCPCS: 81025; 81515; 87491; 87591; 87626; 88175; 99212

== ENCOUNTER → 2024-10-18 08:56 | Outpatient (AMB) | payer MEDICAID, SELFPAY ==
--- NOTE | 2024-10-18 09:05 | A.OFFVIS_ITS ---
Vital Signs 10/18/24 09:06 Height 5 ft 1 in Weight 209 lb BMI 39.5 BP 126/70 Intake Visit Reasons: New patient Metrorrhagia Intake Note: Heavy menses and painful [employer] Sales Representative Required: No Information Interpreted: non-clinical & clinical Fitter Tacker: Fitter Tacker Present (Alexandra Rojo DAVIN) Accompanied by: Self / Same As Patient Allergies No Known Allergies Allergy (Verified 10/18/24 09:08) Is last menstrual period known: Yes Last menstrual period: 10/04/24 HPI Comments Details: New patient visit for heavy menstrual bleeding. She reports her menstrual cycles have always been on the heavier side but over the last year or so they have increased. Cycles are regular lasting 4-5 days, heavy for 3 days, with dysmenorrhea on day 2. She reports at times she changes in overnight pad hourly. During her cycle she admits to having lightheadedness and cramping. She takes Tylenol for cramping. Prior labs/imagin11/2023 TSH-1.63, H and H 11.7 36.4, CT of the pelvis putty glazer pelvic anatomy unremarkable. History of tubal ligation and reports an ectopic surgery following the tubal unsure of what side. Mammogram 08/31/2024, BI-RADS 1. [facility] Medical History Ectopic Abnormal uterine bleeding (AUB) Asthma Surgical History Tubal ligation status History of carpal tunnel surgery of left wrist Family History Father No problems noted. Mother Stroke Social History Alcohol intake: never Patient Tobacco Use Status: Never used Tobacco Current occupational status: unemployed Current occupation: right handed Female Reproductive History Menstrual Date of last menstrual period: 10/04/24 control method: permanent sterilization Review of Systems Const All systems reviewed & are unremarkable except as noted in HPI and below Physical Exam Vital Signs: Last Vital Signs BP 126/70 10/18/24 09:06 BMI result Body Mass Index 39.5 Const General: cooperative, healthy appearing and no acute distress Orientation/consciousness: patient oriented x3 GI Inspection: Yes normal to inspection Palpation (GI): Soft to palpation and Other GI palpation findings present (Nontender) Rectal Exam - Female: visual inspection normal General: Yes bladder normal to palpation External Female Exam: normal appearance of the urethra Speculum Exam - Vagina: normal appearance of the vagina, normal palpation and normal vaginal discharge Speculum Exam - Cervix: normal appearance of the cervix, normal palpation and Other cervical findings present (Bled slightly with Pap) Bimanual exam- vagina & uterus: normal bimanual exam, normal palpation, uterine size normal, bladder normal to palpation, normal palpation, uterine shape normal and non-tender Bimanual Exam- Adnexa, other: normal adnexae Neuro General: patient oriented x3 Results AMB Test Urine AMB Test Urine Negative Last Edit by Alexandra Rojo CMA on 09:17 Results Reviewed Results Reviewed: Laboratory Last Values Tst Clinic Negative 10/18/24 09:16 Assessment & Plan Assessment & Plan (1) Abnormal uterine bleeding (AUB): Code(s): N93.9 - Abnormal uterine and vaginal bleeding, unspecified Category: Medical Plan Discussed: Workup for AUB-pelvic ultrasound, current labs for TSH and CBC, Pap smear, GC chlamydia, and BV panel. UPT is negative. Counseled regarding AUB, typical causes for AUB and treatment options including the Mirena IUD, progesterone/ combination control were reviewed. Mirena booklet dispensed for patient to review. Advised EMB, purpose for the EMB it is rule out any abnormal cells including atypia, precancer and cancer of the endometrium. Advised preprocedure planning to have 3 Advil 200 mg each with food and fluids 1 hour before her next appointment. Plan review of ultrasound labs, obtain the EMB procedure, and consider a Mirena IUD insertion at the same time. Advised to call if there is heavy prolonged bleeding lightheadedness, dizziness, shortness of breath or near-syncope or syncope episodes if bleeding is excessive she would need to go to the emergency room immediately. Advised to try Advil 3 tablets as directed per manufacture's recommendation with food on day 1-2 of her menstrual cycle every 6 hours. The patient expressed understanding and agreement with the plan of care. All of her questions and concerns were addressed to the best of my ability. This note is constructed using voice recognition software. While every effort has been made to ensure accuracy, program development specialist errors may have been included. Orders: Orders AMB HCG Urine Test Today Z32.02 - Encounter for test, result negative US pelvic and transvaginal Today N93.9 - Abnormal uterine and vaginal bleeding, unspecified Bacterial Vaginosis Panel Today N93.9 - Abnormal uterine and vaginal bleeding, unspecified HPV High risk Today N93.9 - Abnormal uterine and vaginal bleeding, unspecified Complete Blood Count no Diff Today N93.9 - Abnormal uterine and vaginal bleeding, unspecified Thyroid Stimulating Hormone Today N92.1 - Excessive and frequent menstruation with irregular cycle, N93.9 - Abnormal uterine and vaginal bleeding, unspecified Pap Smear Today N93.9 - Abnormal uterine and vaginal bleeding, unspecified CT NG by PCR Today N93.9 - Abnormal uterine and vaginal bleeding, unspecified Coding Level of Care Code Tele New Pt Level 4 (21223) Diagnoses Abnormal uterine bleeding (AUB) N93.9
--- OUTSIDE RECORDS SUMMARY | 2024-10-18 09:10 | XMS_ITS | Encounter Summary ---
Author Organization [employer] Address [address] [place] [address] Care Team Providers Care Push Button Switch Assembler Name Role Phone Naomi Alfonso MD Primary Care Provide r Encounter Details Date Type Department Care Team ([facility] st Contact Info) Description 07/06/2023 Abstract [facility] [address], [place] [phone] Naomi Alfonso MD [address] [place], [place] [phone] Social History Tobacco Use Types Packs/Day Years Used Date Smoking Tobacco: Never Smokeless Tobacco: Never Housing Stability Answer Date Recorded What is your housing situation today? I have verena casas 07/02/[address] you li ve. Do you have problems with any of the following? None of the above 07/02/2023 Food Insecurity Answer Date Recorded Within the past 12 months, y ou worried that your food would run out before you got money to buy more: Never True 07/02/2023 Within the past 12 months,th e food you bought just didn't last and you didn't have enough money to get more: Never True Transportation Answer Date Recorded In the past 12 months, has l ack of transportation kept you from medical appts, meetings, work or from getting things needed for daily living? No 07/02/2023 Utilities Answer Date Recorded In the past 12 months, has t he electric, gas, oil or water company threatened to shut off services in your home? No 07/02/2023 Comments Unknown Sex and Gender Information Value Date Recorded Sex Assigned at Female 07/12/2022 10:21 AM EDT Legal Sex Female 10:21 AM EDT Gender Identity Female 07/12/2022 10:21 AM EDT Sexual Orientation Straight 07/12/2022 10 :21 AM EDT documented as of this encounter Plan of Treatment Upcoming Encounters Date Type Department Care Team (Late st Contact Info) Description 11/26/2024 9:15 AM EDT Office Visit [facility] [address], [place] [phone] Naomi Alfonso MD [address] [place] [address] documented as of this encounter Visit Diagnoses Not on filedocumented in this encounter Care Teams Push Button Switch Assembler Relationship Specialty Start Date End Date Namoi Alfonso MD [address] [place] [address] [phone] PCP - General Family Medicine 06/19/18 documented as of this encounter
--- OUTSIDE RECORDS SUMMARY | 2024-10-18 09:10 | XMS_ITS | Encounter Summary ---
Author Organization [employer] Address [address] [place] [address] Care Team Providers Care Auto Fleet Manager Name Role Phone Naomi Alfonso MD Primary Care Provide r Reason for Visit * Reason Onset Date Comments Durable Medical Equipment 10/02/2024 Nebuli zer Encounter Details Date Type Department Care Team ([facility] st Contact Info) Description 10/02/2024 Telephone [facility] [address], [place] [phone] Naomi Alfonso MD [address] [place], [place] [phone] Durable Medical Equipment (Nebulizer) Social History Tobacco Use Types Packs/Day Years Used Date Smoking Tobacco: Never Passive Smoke Exposure: Never Smokeless Tobacco: Never Alcohol Use Standard Drinks/Week Comments Never 0 (1 standard drink = 0.6 oz pur e alcohol) Housing Stability Answer Date Recorded What is [...] off services in your home? No 07/02/2023 Depression Answer Date Recorded Patient Health Questionnaire-2 Score 0 10/28/2023 Comments Unknown Sex and Gender Information Value Date Recorded Sex Assigned at Female 07/12/2022 10:21 AM EDT Legal Sex Female 10:21 AM EDT Gender Identity Female 07/12/2022 10:21 AM EDT Sexual Orientation Straight 07/12/2022 10 :21 AM EDT documented as of this encounter Miscellaneous Notes * Telephone Encounter - Isis Mccabe - 10/04/2024 11:17 AM EST CMN signed and faxed to [facility]. Fax confirmation received and sent to [facility]. * Telephone Encounter - Isis Mccabe - 10/02/2024 10:03 AM EST Certificate or medical necessity for nebulizer from [facility] placed on PCP desk for signature. documented in this encounter Plan of Treatment Upcoming Encounters Date Type Department Care Team (Late st Contact Info) Description 11/26/2024 9:15 AM EDT Office Visit [facility] [address] [place] [address] Naomi Alfonso MD [address] [place] [address] documented as of this encounter Visit Diagnoses Not on filedocumented in this encounter Care Teams Auto Fleet Manager Relationship Specialty Start Date End Date Naomi Alfonso MD [address] [place] [address] PCP - General Family Medicine 06/19/18 documented as of this encounter
--- OUTSIDE RECORDS SUMMARY | 2024-10-18 09:10 | XMS_ITS | Encounter Summary ---
Author Organization [employer] Address [address] [place] [address] Care Team Providers Care Bank Sales And Service Manager Name Role Phone Naomi Alfonso MD Primary Care Provide r Reason for Visit * Reason Onset Date Comments No Show 09/18/2024 Encounter Details Date Type Department Care Team ([facility] Contact Info) Description 09/18/[address] [facility] [address], [place] [phone] Naomi Alfonso MD [address] [place], [place] [phone] No Show Social History Tobacco Use Types Packs/Day Years Used Date Smoking Tobacco: Never Passive Smoke Exposure: Never Smokeless Tobacco: Never Alcohol Use Standard Drinks/Week Comments Never 0 (1 standard drink = 0.6 oz pur e alcohol) Housing Stability Answer Date Recorded What is your housing situation today? I have verenacrescencio casas 07/02/[address] you [...] encounter Miscellaneous Notes * Telephone Encounter - Mary Ann Alas - 09/18/2024 9:50 AM EST Pt no showed to appt on 09/18/24 documented in this encounter Plan of Treatment Upcoming Encounters Date Type Department Care Team (Late st Contact Info) Description 11/26/2024 9:15 AM EDT Office Visit [facility] [address] [place] [address] Naomi Alfonso MD [address] [place] [phone] documented as of this encounter Visit Diagnoses Not on filedocumented in this encounter Care Teams Bank Sales And Service Manager Relationship Specialty Start Date End Date Naomi Alfonso MD [address] [place] [address] PCP - General Family Medicine 06/19/18 documented as of this encounter
--- OUTSIDE RECORDS SUMMARY | 2024-10-18 09:10 | XMS_ITS | Clinical Summary ---
Author Organization [employer] Address [address] [facility] 7t [place] [address] Care Team Providers Care Education Professional Name Role Phone Naomi Alfonso MD Primary Care Provide r Allergies No known active allergies Medications albuterol (Ventolin HFA) 108 (90 Base) MCG/ACT inhaler INHALE 2 PUFFS BY MOUTH FOUR TIMES DAILY NEEDED 18 g 1 3 Active Nirmatrelvir&Rit onavir 150/100 (Paxlovid, 150/100,) 10 x 150 MG & 10 x 100MG tablet therapy packIndications: COVID-19 Take 1 Dose by mouth 2 times daily. 3 tabs 2 times a day x 5 days 30 each 3 Active albuterol (2.5 MG/3ML) 0.083% nebulizer solutionIndicati ons:Mild intermittent asthma with acute exacerbation Take 3 mL (2.5 mg) by nebulization every 4 (four) hours if needed for wheezing. 75 mL 3 3 Active Asmanex HFA 200 MCG/ACT aerosol INHALE 1 PUFF BY MOUTH TWICE DAILY RINSE MOUTH AFTER USING. 13 g 3 4 Active fluticasone furoate (Arnuity Ellipta) 100 MCG/ACT inhalerIndicatio ns:Mild intermittent asthma with acute exacerbation Inhale 1 puff in the morning. Rinse mouth with water after use to reduce aftertaste and incidence of candidiasis. Do not swallow. 1 each 11 4 025 Active famotidine (Pepcid) 20 MG tabletIndication s:Chronic gastritis, presence of bleeding unspecified, unspecified gastritis type Take 1 tablet (20 mg) by mouth 2 times daily. 60 tablet 11 4 025 Active Vitamin D High Potency 25 MCG (1000 UT) capsuleIndicatio ns:Vitamin D3 deficiency TAKE 1 CAPSULE BY MOUTH DAILY IN THE MORNING 90 capsule 1 4 Active betamethasone valerate (Valisone) 0.1 % cream Apply topically if needed in the morning and at bedtime (dryness). 45 g 4 Active Blood Pressure Monitor misc Check BP daily 1 each 4 Active loratadine (Claritin) 10 MG tablet Take 1 tablet by mouth once daily. May take up to 3 times daily for 2 weeks. Once rash improves, take once daily as needed 90 tablet 4 Active triamcinolone (Kenalog) 0.1 % cream Apply to affected area once or twice daily. Use thin layer. Do not use every day for > 2 weeks. 453 g 2 4 Active D3 Super Strength 50 MCG (2000 UT) capsule TAKE 1 CAPSULE BY MOUTH EVERY DAY 90 capsule 4 Active Semaglutide-Weig ht Management (Wegovy) 0.25 MG/0.5ML solution auto-injectorInd ications:Class 3 severe obesity due to excess calories with serious comorbidity and body mass index (BMI) of 40.0 to 44.9 in adult ([facility]) Inject 0.25 mg under the skin 1 (one) time per week. 0.5 mL 4 Active Active Problems Problem Noted Date Diagnosed Date Metrorrhagia 06/12/2024 Hematuria 12/13/2023 Chronic bladder pain 12/13/2023 Class 3 severe obesity with serious comorbidity and body mass index (BMI) of 40.0 to 44.9 in adult 12/13/2023 Assessment & Plan (12/13/2023 12:15 PM EDT): Today extensive discussion was done about life style modifications I advise healthy diet (low calorie) and cardiovascular exercise Colon cancer screening 10/28/2023 Chronic left-sided low back pain with left-sided sciatica 10/28/2023 Left hip pain 10/28/2023 Encounter for preventive health examination 10/13 Assessment & Plan (11/01/2023 4:55 PM EST): See HPI Carpal tunnel syndrome 02/08/2023 Chronic gastritis 02/08/2023 Assessment & Plan (11/01/2023 4:55 PM EST): I advise patient to avoid NSAIDs, spicy and acid food, I advise to eat at the same time every day, I advise to elevate the head of the bed and take medications as prescribe Mild intermittent asthma 10/28/2017 Assessment & Plan (06/12/2024 12:07 PM EDT): Stale c/w albuterol inhaler PRN and Anurity daily Encounters Date Type Department Care Team Description 10/02/[address] [address] Naomi Alfonso MD Durable Medical Equipment (Nebulizer) 09/18/[address] [address] Naomi Alfonso MD No Show 09/11/2024 Patient Outreach [address] [phone] Naomi Alfonso MD Pre-visit Planning ([facility] screening completed on 10/20/2023) 08/17/2024 Orders Only [address] [phone] Naomi Alfonso MD 07/19/2024 Travel 07/18/[address] [address] Cierra Phillip [place] JAN RECALL from Last 3 Months Immunizations Name Administration Dates Next Due Hep B, adult 02/09/2013,11/28/2012,10/03/2012 Influenza, Split (incl. jeremie fied surface antigen) 10/03/2012 Moderna Covid-19 Vaccine 12+ 06/17/2021 Tdap 04/04/2012 Social History Tobacco Use Types Packs/Day Years Used Date Smoking Tobacco: Never Passive Smoke Exposure: Never Smokeless Tobacco: Never Tobacco Cessation:Counseling Given: Not Answered Alcohol Use Standard Drinks/Week Comments Never 0 [...] Orientation Straight 07/12/2022 10 :21 AM EDT Last Filed Vital Signs Vital Sign Reading Time Taken Comments Blood Pressure 138/86 06/12/2024 9:59 AM EDT Pulse 90 06/12/2024 9:43 AM EDT Temperature 36.9 ??C (98.4 ??F) 06/12/2024 9:43 AM ED T Respiratory Rate 20 06/12/2024 9:43 AM EDT Oxygen Saturation 99% 06/12/2024 9:43 AM EDT Inhaled Oxygen Concentration - - Weight 103 kg (226 lb 6.4 oz) 06/12/2024 9:43 AM EDT Height 154.9 cm (5' 1 ) 06/12/2024 9:43 AM EDT Body Mass Index 42.78 06/12/2024 9:43 AM EDT Plan of Treatment Upcoming Encounters Date Type Department Care Team (Late st Contact Info) Description 11/26/2024 9:15 AM EDT Office Visit [facility] [address] [place] [address] Naomi Alfonso MD [address] [place] [address] Health Maintenance Due Date Last Done Comments CT Colonography 1978 Colonoscopy 1978 Colorectal Cancer Screening 1978 FIT DNA/Cologuard 1978 FIT 1978 FOBT 1978 Sigmoidoscopy 1978 Alcohol/Substance Use Screening 1990 Family Planning (PISQ) 1993 Pneumococcal Vaccine: Pediatrics (0 to 5 Years) and At-Risk Patients (6 to 49) Years) (1 of 2 - PCV) 1997 Pap Smear 1999 DTaP/Tdap/Td Vaccines (2 - T d or Tdap) 04/04/2022 04/04/2012 COVID-19 Vaccine (2 - 2023-2 5 season) 2024 06/17/2021 Influenza Vaccine (#1) 2024 10/03/2012 Cervical Cancer Screening 10/04/2024 HPV/Cotest 10/04/2024 10/04/2019 SDOH Screening 10/20/2024 10/20/2023 Depression Screening 10/28/2024 10/28/2023, 10/28/2023 Tobacco Screening 06/12/2025 06/12/2024 Mammogram 08/17/2025 08/17/2024, 10/17/2019 Zoster Vaccines (1 of 2) 2028 Lipid Panel 12/07/2028 12/08/2023, 01/13/2023, 09/09/2021 RSV Patients and Patients Aged 60 years or older (1 - 1-dose 75+ series) 2053 Hepatitis B Vaccines Completed 02/09/2013, 11/28/2012, 10/03/2012 HIV Screening Completed 12/08/2023 Hepatitis C Screening Completed 12/08/2023 HIB Vaccines Aged Out No longer eligi ble based on patient's age to complete this topic HPV Vaccines Aged Out No longer eligi ble based on patient's age to complete this topic Hepatitis A Vaccines Aged Out No long er eligible based on patient's age to complete this topic IPV Vaccines Aged Out No longer eligi ble based on patient's age to complete this topic Meningococcal Vaccine Aged Out No jorge arie eligible based on patient's age to complete this topic RSV under 20 months Aged Out No longe r eligible based on patient's age to complete this topic Rotavirus Vaccines Aged Out No longer eligible based on patient's age to complete this topic Procedures Procedure Name Priority Date/Time Associated Diagnosis Comments BI MAMMOGRAM SCREENING TOMOSYNTHESIS BILATERAL Routine 08/17/2024 9:00 AM EST HEPATITIS C AB W/REFL TO HCV RNA, QN, PCR Routine 12/08/2023 8:01 AM EDT Encounter for preventive health examination HIV 1/2 ANTIGEN/ANTIBODY, FOURTH GENERATION W/RFL Routine 12/08/2023 8:01 AM EDT Encounter for preventive health examination LIPID PANEL, STANDARD Routine 12/08/2023 8:01 AM EDT Encounter for preventive health examination ZZZ HISTORICAL HPV MRNA E6/E7 Routine 10/04/2019 11:45 AM EST from Last 3 Months or Most Recently Relevant to Health Maintenance Results * BI Mammogram Screening Tomosynthesis Bilateral (08/17/2024 9:00 AM EST) Anatomical Region Laterality Modality Breast Bilateral Mammography 08/17/2024 9:00 AM EST Narrative 08/23/2024 10:19 AM EST ? [facility] [place] ? [address] ?[place] [address] ? Mammography Report ? Signed with Addenda ? Patient: Ellen Gaston,Naomi Alberts ? MR#: [id number] ? : 1980 ?Acct:[id number] ? Age/Sex: 44 / F ?ADM Date: 12/06/24 ? Loc: HO.MAMMO ? Attending Dr: Naomi Bocanegra MD ? Ordering Physician: Naomi Alfonso MD ?Results: ?? 1Negative ? Date of Service: 08/17/24 ?Follow Up: 1 Year From Orig ?? inal Mammogram ? Procedure(s): MM tomosynthesis screening BI ?? Accession Number(s): [id number] ? cc: Naomi Alfonso MD ?ADDENDUM ? ADDENDUM #1 ? ADDENDUM: ?? Patient states that she has right pain behind her nipple and is ?? unchanged since her biopsy 9 years ago. Recommend clinical evaluation ?? and if it is deemed clinically significant or new symptoms a diagnostic ?? workup can be ordered and performed. ? OVERALL ASSESSMENT: ?? BI-RADS 1 - Negative ? RECOMMENDATION: ?? 1 year F/U ? Electronically signed by: ??Ena Downing DO ??08/29/2024 02:20 PM EST ?? RP ? Addendum Dictated By: ?Ena Downing, DO ? Addendum Signed By: ? <Electronically signed by Ena Downing, DO in OV> ? 08/29/24 1420 ?? Addendum Cosigned By: ? DD/ /05/900 ? TD/TT: 08/17/2403/05/930 ? EXAMINATION: ?? MM SCREENING DIGITAL BREAST TOMOSYNTHESIS, BILATERAL ? CLINICAL INFORMATION: ? Screening. Asymptomatic. ? COMPARISON: ?? Mammography: Comparison is made with available priors ? TECHNIQUE: ?? Digital breast mammography with tomosynthesis is performed in both the ?? craniocaudal and mediolateral oblique views along with computer-aided ?? detection (CAD). ? FINDINGS: ?? There are scattered areas of fibroglandular density (ACR BI-RADS breast ?? composition Category b). ? There are no significant masses, abnormal calcifications, or other ?? abnormalities. ? MM/MM tomosynthesis screening BI ?? IMPRESSION: ?? No mammographic evidence of malignancy. ? Patient states that she has right brain behind her nipple and is ?? unchanged since her biopsy 9 years ago. Recommend clinical evaluation ?? and if it is deemed clinically significant or new symptoms a diagnostic ?? workup can be ordered and performed. ? ASSESSMENT: ? BI-RADS BI-RADS 1 - Negative ? RECOMMENDATION: ?? Routine annual mammography screening. ? 1 year F/U ? This examination should not preclude the clinical evaluation of a ?? suspicious palpable abnormality. ? This patient's information was entered into a reminder system with a ?? target due date for their next mammogram. ? Electronically signed by: ??Ena Downing DO ??08/23/2024 10:11 AM EST ? Dictated By: ?Ena Downing DO ? Signed By: ?<Electronically signed by Ena Downing, DO in OV> ? 08/23/24 1011 ? DD/ 0900 ? TD/TT: 08/17/24 0930 ? Storm Chaser: ? Procedure Note Katey, Image - 08/29/2024 [facility] [address] [place] [address] Mammography Report Signed with [place] Patient: Naomi Chavira MR#: [id number] : 1980Acct:[id number] Age/Sex: 44 / FADM Date: 08/17/24 Loc: HO.MAMMO Attending Dr: Naomi Bocanegra MD Ordering Physician: Naomi Alfonsoults: 1Negative Date of Service: 08/17/24Follow Up: 1 Year From Orig inal Mammogram Procedure(s): MM tomosynthesis screening BI Accession Number(s): [id number] cc: Naomi Alfonso MD ADDENDUM ADDENDUM #1 ADDENDUM: Patient states that she has right pain behind her nipple and is unchanged since her biopsy 9 years ago. Recommend clinical evaluation and if it is deemed clinically significant or new symptoms a diagnostic workup can be ordered and performed. OVERALL ASSESSMENT: BI-RADS 1 - Negative RECOMMENDATION: 1 year F/U Electronically signed by: Ena Downing DO 08/29/2024 02:20 PM EST RP Addendum Dictated By: Ena Downing DO Addendum Signed By: <Electronically signed by DO Keyanna in OV> 08/29/24 1420 Addendum Cosigned By: DD/ /05/900 TD/TT: 08/17/2403/05/930 EXAMINATION: MM SCREENING DIGITAL BREAST TOMOSYNTHESIS, BILATERAL CLINICAL INFORMATION: Screening. Asymptomatic. COMPARISON: Mammography: Comparison is made with available priors TECHNIQUE: Digital breast mammography with tomosynthesis is performed in both the craniocaudal and mediolateral oblique views along with computer-aided detection (CAD). FINDINGS: There are scattered areas of fibroglandular density (ACR BI-RADS breast composition Category b). There are no significant masses, abnormal calcifications, or other abnormalities. MM/MM tomosynthesis screening BI IMPRESSION: No mammographic evidence of malignancy. 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 Recommend clinical evaluation and if it is deemed clinically significant or new symptoms a diagnostic workup can be ordered and performed. ASSESSMENT: BI-RADS BI-RADS 1 - Negative RECOMMENDATION: Routine annual mammography screening. 1 year F/U This examination should not preclude the clinical evaluation of a suspicious palpable abnormality. This patient's information was entered into a reminder system with a target due date for their next mammogram. Electronically signed by: Ena Downing DO 08/23/2024 10:11 AM EST RP Dictated By: Ena Downing DO Signed By: <Electronically signed by Ena Downing DO in OV> 08/23/24 1011 DD/ 9 TD/TT: 08/17/24 0930 Storm Chaser: Naomi Bocanegra MD IMG BI PROCEDURES Bobby lily Result - Final * Hepatitis C Antibody with Reflex to HCV, RNA, Quantitative, Real-Time PCR (12/08/2023 8:01 AM EDT) Hepatitis C Antibody Nonreactive Nonreactive [facility] Comment:Antibodies to HCV no t detected; does not exclude early acuteHCV infection. Blood Venous blood specimen / Unknown 12/08/2023 8:01 AM EDT 12/08/2023 11:17 AM EDT Naomi Bocanegra MD LAB BLOOD ORDERABLES Final Result [facility] [address] [place] [phone] * HIV-1/2 Antigen and Antibodies, Fourth Generation, with Reflexes (12/08/2023 8:01 AM EDT) HIV AB/AG Nonreactive Nonreactive [facility] Comment:HIV-1 p24 Ag and/or HIV-1/HIV-2 Ab not detected.A test result that is nonreactive does not exclude thepossibility of exposure to or infection with HIV-1 and/orHIV-2. Nonreactive results in this assay for individualswith prior exposure to HIV-1 and/or HIV-2 may be due toantigen and antibody levels that are below the limit ofdetection of this assay.The Richard Pauer - 3Pnitimeplazza HIV Ag/Ab Combo assay result andsupplemental assay results should be interpreted inconjunction with the patient's clinical presentation,history and other laboratory results. If the results areinconsistent with clinical evidence, additional testing issuggested to confirm the result. Blood Venous blood specimen / Unknown 12/08/2023 8:01 AM EDT 12/08/2023 11:17 AM EDT Naomi Bocanegra MD LAB BLOOD ORDERABLES Final Result Performing Organization Address City/[facility]/ZIP Co de Phone Number [facility] [address] [place] [phone] * (ABNORMAL) Lipid Panel, Standard (12/08/2023 8:01 AM EDT) Triglycerides 144 <150 mg/dL [facility] Comment:Desirable Triglyceri de: less than 150 mg/dLBorderline High Triglyceride 150-199 mg/dLHigh Triglyceride: 200-499 mg/dLVery High Triglyceride: greater than or equal to 5OO mg/dL Cholesterol 179 <200 mg/dL [facility] Comment:Desirable Cholestero l: less than 200 mg/dLBorderline High Cholesterol: 200-239 mg/dLHigh Cholesterol: greater than 239 mg/dL LDL Cholesterol Calculated 117(H) <100 mg/dL [facility] Comment:Desirable LDL: less than 100 mg/dLNear Optimal/Above Optimal LDL: 110- 129 mg/dLBorderline High LDL: 130-159 mg/dLHigh LDL: 160-189 mg/dLVery High LDL: greater than or equal to 190 mg/dL HDL Cholesterol 34(L) >40 mg/dL [facility] Comment:Desirable HDL: great er than 40 mg/dL Note: This HDL assay may give artificially low results in patients with liver disease. Blood Venous blood specimen / Unknown 12/08/2023 8:01 AM EDT 12/08/2023 11:17 AM EDT us Naomi Bocanegra MD LAB BLOOD ORDERABLES Final Result Performing Organization Address City/[facility]/ZIP Co de Phone Number [facility] [address] [place] [phone] [phone] * HPV mRNA E6/E7 (10/04/2019 11:45 AM EST) HPV mRNA E6/E7 Not Detected NOT DETECTED [facility] Comment: This test was performed using the APTIMA(R) HPV Assay ([employer] This assay detects E6/E7 viral messenger RNA (mRNA) from 14 high-risk HPV types (16,18,31,33,35,39,45,51, 52,56,58,59,66,68). For additional information please refer to: http://education.[employer]/faq/OYU592k3 (This link is being provided for informational/ educational purposes only.) The analytical performance characteristics of this assay have been determined by [employer] [place], [place]. The modifications have not been cleared or approved by the FDA. This assay has been validated pursuant to the CLIA regulations and is used for clinical purposes. Test Performed by [facility], [facility] [employer] [facility], [address] [place] [address] Jeferson Reyna M.D., Ph.D., Director of Laboratories , CLIA [id number] Please note: ??Effective 05/24/2016, HPV testing will be performed using [employer]'s APTIMA test which targets mRNA. Detecting mRNA instead of DNA, as in older methods, offers significant improvements in specificity. 10/04/2019 11:4 5 AM EST us Naomi Bocanegra MD HISTORICAL/NON ORDERA BLE LABS Final Result [facility] [address] from Last 3 Months or Most Recently Relevant to Health Maintenance Insurance * Guarantor: Naomi Chavira Account Type Relation to Patient Date of Phone Billing Address Personal/Family Self 1980 [address] [place] [address] [facility] C3 HSN PARTIAL Care Teams Education Professional Relationship Specialty Start Date End Date Naomi Alfonso MD [address] [place] [phone] PCP - General Family Medicine 06/19/18
--- OUTSIDE RECORDS SUMMARY | 2024-10-18 09:10 | XMS_ITS | Encounter Summary ---
Author Organization [employer] Address [address] 7[address] [place] [address] Care Team Providers Care Organizational Development Specialist Name Role Phone Naomi Alfonso MD Primary Care Provide r Encounter Details Date Type Department Care Team ([facility] st Contact Info) Description 07/08/2023 Abstract [facility] [address] [place], [place] [phone] Naomi Alfonso MD [address] [place], [place] [phone] Social History Tobacco Use Types Packs/Day Years [...] Description 11/26/2024 9:15 AM EDT Office Visit [facility] [address] [place], [place] [phone] Naomi Alfonso MD [address] [place] [address] documented as of this encounter Visit Diagnoses Not on filedocumented in this encounter Care Teams Organizational Development Specialist Relationship Specialty Start Date End Date Naomi Alfonso MD [address] [place] [phone] PCP - General Family Medicine 06/19/18 documented as of this encounter
--- OUTSIDE RECORDS SUMMARY | 2024-10-18 09:10 | XMS_ITS | Encounter Summary ---
Author Organization [employer] Address [address] [facility] 7t [place] [address] Care Team Providers Care Press Operator Carbon Blocks Name Role Phone Naomi Alfonso MD Primary Care Provide r Encounter Details Date Type Department Care Team ([facility] Contact Info) Description 02/08/2023 Telephone [facility] [address] [place], [place] [phone] Naomi Alfonso MD [address] [place] [address] Social History Tobacco Use Types Packs/Day Years Used Date Smoking Tobacco: Never Assessed Comments Unknown Sex and Gender Information Value Date Recorded Sex Assigned at Female 07/12/2022 10:21 AM EDT Legal Sex Female 10:21 AM EDT Gender Identity Female 07/12/2022 10:21 AM EDT Sexual Orientation Straight 07/12/2022 10 :21 AM EDT documented as of this encounter Plan of Treatment Upcoming Encounters Date Type Department Care Team (Late Contact Info) Description 11/26/2024 9:15 AM EDT Office Visit [facility] [address] [place], [place] [phone] Naomi Alfonso MD [address] [place], [place] [phone] documented as of this encounter Visit Diagnoses Not on filedocumented in this encounter Care Teams Press Operator Carbon Blocks Relationship Specialty Start Date End Date Naomi Alfonso MD [address] [place] [phone] PCP - General Family Medicine 06/19/18 documented as of this encounter
--- OUTSIDE RECORDS SUMMARY | 2024-10-18 09:10 | XMS_ITS | Clinical Summary ---
Author Organization [facility] Address [address] [facility] [address] [place] [phone] Phone Care Team Providers Care Pharmacy Technologist Name Role Phone Unavailable Primary Care Provider Unavailabl e Medications Multiple Vitamins-Iron (MULTIVITAMIN/IR ON PO) Take 1 tablet by mouth 1 (one) time each day Active albuterol HFA (ProAir HFA) 108 (90 Base) MCG/ACT inhaler Acti ve loratadine (CLARITIN) 10 MG tablet Take 1 tablet by mouth 1 (one) time each day Active Active Problems Problem Noted Date Diagnosed Date Blood in urine 03/06/2021 Family History Medical History Relation Comments Hypertension Mother Relation Status Comments Father Mother Alive Social History Tobacco Use Types Packs/Day Years Used Date Smoking Tobacco: Former Smokeless Tobacco: Former Comments Unknown Sex and Gender Information Value Date Recorded Sex Assigned at Not on file Legal Sex Female 5:05 PM EST Gender Identity Not on file Sexual Orientation Not on file Last Filed Vital Signs Vital Sign Reading Time Taken Comments Blood Pressure 122/82 09/06/2019 12:00 PM EST Pulse 76 09/06/2019 12:00 PM EST Temperature - - Respiratory Rate - - Oxygen Saturation - - Inhaled Oxygen Concentration - - Weight 95.3 kg (210 lb) 09/06/2019 12:00 PM EST Height 154.9 cm (5' 1 ) 09/08/2020 12:00 PM EST Body Mass Index 39.68 09/06/2019 12:00 PM EST Plan of Treatment Health Maintenance Due Date Last Done Comments Hepatitis B Vaccine (1 of 3 - 19+ 3-dose series) 1997 Influenza Vaccine (#1) 2024 Pneumococcal Vaccine: Pediat rics (0 to 5 Years) and At-Risk Patients (6 to 64 Years) Aged Out No longer eligi ble based on patient's age to complete this topic Insurance [place]
== END | disposition home or self-care (01) ==
PROVIDERS: PCP Internal Medicine; Visit Provider Advanced Practice Midwife
CPT/HCPCS: 99204

== ENCOUNTER 2024-10-18 09:50 | Outpatient (REF) | payer MEDICAID, SELFPAY ==
--- OUTSIDE RECORDS SUMMARY | 2024-10-18 09:57 | XMS_ITS | Encounter Summary ---
Author Organization [employer] Address [address] [place] [address] Care Team Providers Care Percolator Operator Name Role Phone Naomi Alfonso MD Primary Care Provide r Reason for Visit * Reason Onset Date Comments No Show 09/18/2024 Encounter Details Date Type Department Care Team ([facility] Contact Info) Description 09/18/2024 Telephone [facility] [address] [place], [place] [phone] Naomi Alfonso MD [address] [place], [place] [phone] No Show Social History Tobacco Use Types [...] Description 11/26/2024 9:15 AM EDT Office Visit [facility] [address] [place] [phone] Naomi Alfonso MD [address] [place] [address] documented as of this encounter Visit Diagnoses Not on filedocumented in this encounter Care Teams Percolator Operator Relationship Specialty Start Date End Date Naomi Alfonso MD [address] [place] [address] PCP - General Family Medicine 06/19/18 documented as of this encounter
--- OUTSIDE RECORDS SUMMARY | 2024-10-18 09:57 | XMS_ITS | Encounter Summary ---
Author Organization [employer] Address [address] [place] [address] Care Team Providers Care Customer Project Manager Name Role Phone Naomi Alfonso MD Primary Care Provide r Encounter Details Date Type Department Care Team ([facility] st Contact Info) Description 07/08/2023 Abstract [facility] [address] [place], [place] [phone] Naomi Alfonso MD [address] [place], [place] [phone] Social History Tobacco Use Types Packs/Day Years [...] Description 11/26/2024 9:15 AM EDT Office Visit [facility] [address] [place], [place] [phone] Naomi Alfonso MD [address] [place] [address] documented as of this encounter Visit Diagnoses Not on filedocumented in this encounter Care Teams Customer Project Manager Relationship Specialty Start Date End Date Naomi Alfonso MD [address] [place] [address] [phone] PCP - General Family Medicine 06/19/18 documented as of this encounter
--- OUTSIDE RECORDS SUMMARY | 2024-10-18 09:57 | XMS_ITS | Encounter Summary ---
Author Organization [employer] Address [address] [facility] [address] 7[address] [place] [address] Care Team Providers Care Benzene Worker Name Role Phone Naomi Alfonso MD Primary Care Provide r Reason for Visit * Reason Onset Date Comments Durable Medical Equipment 10/02/2024 Nebuli zer Encounter Details Date Type Department Care Team ([facility] st Contact Info) Description 10/02/2024 Telephone [facility]INE [address] [place], [place] [phone] Naomi Alfonso MD [address] [place], [place] [phone] Durable Medical Equipment (Nebulizer) Social History Tobacco [...] AM EST CMN signed and faxed to [facility]. Fax confirmation received and sent to [facility]. * Telephone Encounter - Isis Mccabe - 10/02/2024 10:03 AM EST Certificate or medical necessity for nebulizer from [facility] placed on PCP desk for signature. documented in this encounter Plan of Treatment Upcoming Encounters Date Type Department Care Team (Late st Contact Info) Description 11/26/2024 9:15 AM EDT Office Visit [facility] [address] [place] [address] Naomi Alfonso MD [address] [place] [address] documented as of this encounter Visit Diagnoses Not on filedocumented in this encounter Care Teams Benzene Worker Relationship Specialty Start Date End Date Naomi Alfonso MD [address] [place] [address] PCP - General Family Medicine 06/19/18 documented as of this encounter
--- OUTSIDE RECORDS SUMMARY | 2024-10-18 09:57 | XMS_ITS | Encounter Summary ---
Author Organization [employer] Address [address] [facility] 7t [place] [address] Care Team Providers Care Tile And Marble Setter Name Role Phone Naomi Alfonso MD Primary Care Provide r Encounter Details Date Type Department Care Team ([facility] Contact Info) Description 02/08/2023 Telephone [facility] [address] [place], [place] [phone] Naomi Alfonso MD [address] [place] [address] Social History Tobacco Use Types Packs/Day Years [...] Description 11/26/2024 9:15 AM EDT Office Visit [facility] [address] [place], [place] [phone] Naomi Alfonso MD [address] [place], [place] [phone] documented as of this encounter Visit Diagnoses Not on filedocumented in this encounter Care Teams Tile And Marble Setter Relationship Specialty Start Date End Date Naomi Alfonso MD [address] [place] [phone] PCP - General Family Medicine 06/19/18 documented as of this encounter
--- OUTSIDE RECORDS SUMMARY | 2024-10-18 09:57 | XMS_ITS | Clinical Summary ---
Author Organization [employer] Address [address] [facility] 7t [place] [address] Care Team Providers Care Polysomnography Technician Name Role Phone Naomi Alfonso MD Primary [...] (BMI) of 40.0 to 44.9 in adult ([facility]) Inject 0.25 mg under the skin 1 [...] Type Department Care Team Description 10/02/[address] [address] Naomi Alfonso MD Durable Medical Equipment (Nebulizer) 09/18/[address] [address] Naomi Alfonso MD No Show 09/11/2024 Patient Outreach [address] [address] Naomi Alfonso MD Pre-visit Planning ([facility] screening completed on 10/20/2023) 08/17/2024 Orders Only [address] [address] Naomi Alfonso MD 07/19/2024 Travel 07/18/[address] [address] Cierra Phillip [place] JAN RECALL from Last [...] Description 11/26/2024 9:15 AM EDT Office Visit [facility] [address] [place] [address] Naomi Alfonso MD [address] [place] [address] Health Maintenance Due Date Last Done Comments [...] EST Narrative 08/23/2024 10:19 AM EST ? [facility] ? [address] ?[place] [address] ? Mammography Report ? Signed with Addenda ? Patient: Ellen Gaston,Naomi Alberts ? MR#: [id number] ? : 1980 ?Acct:[id number] ? Age/Sex: 44 / F ?ADM Date: 12/06/24 ? Loc: HO.MAMMO ? Attending Dr: Naomi Bocanegra MD ? Ordering Physician: Naomi Alfonso MD ?Results: ?? 1Negative ? Date of Service: 08/17/24 ?Follow Up: 1 Year From Orig ?? inal Mammogram ? Procedure(s): MM tomosynthesis screening BI ?? Accession Number(s): [id number] ? cc: Naomi Alfonso MD ?ADDENDUM ? [...] next mammogram. ? Electronically signed by: ??Ena Dwoning DO ??08/23/2024 10:11 AM EST ? Dictated By: ?Ena Downing DO ? Signed By: ?<Electronically signed by Ena Downing, DO in OV> ? 08/23/24 1011 ? DD/ 0900 ? TD/TT: 08/17/24 0930 ? Senior Clinical Research Scientist: ? Procedure Note Katey, Image - 08/29/2024 [facility] [address] [place] [address] Mammography Report Signed with [place] Patient: Naomi Chavira MR#: [id number] : 1980Acct:[id number] Age/Sex: 44 / FADM Date: 08/17/24 Loc: HO.MAMMO Attending Dr: Naomi Bocanegra MD Ordering Physician: Naomi Alfonsoults: 1Negative Date of Service: 08/17/24Follow Up: 1 Year From Orig inal Mammogram Procedure(s): MM tomosynthesis screening BI Accession Number(s): [id number] cc: Naomi Alfonso MD ADDENDUM ADDENDUM #1 [...] 08/23/24 1011 DD/ 9 TD/TT: 08/17/24 0930 Senior Clinical Research Scientist: Naomi Bocanegra MD IMG BI PROCEDURES Bobby lily Result - Final * Hepatitis C Antibody with Reflex to HCV, RNA, Quantitative, Real-Time PCR (12/08/2023 8:01 AM EDT) Hepatitis C Antibody Nonreactive Nonreactive [facility] Comment:Antibodies to HCV no t detected; does not exclude early acuteHCV infection. Blood Venous blood specimen / Unknown 12/08/2023 8:01 AM EDT 12/08/2023 11:17 AM EDT Naomi Bocanegra MD LAB BLOOD ORDERABLES Final Result [facility] [address] [place] [phone] * HIV-1/2 Antigen and Antibodies, Fourth Generation, with Reflexes (12/08/2023 8:01 AM EDT) HIV AB/AG Nonreactive Nonreactive [facility] Comment:HIV-1 p24 Ag and/or HIV-1/HIV-2 Ab not detected.A test result that is nonreactive does not exclude thepossibility of exposure to or infection with HIV-1 and/orHIV-2. Nonreactive results in this assay for individualswith prior exposure to HIV-1 and/or HIV-2 may be due toantigen and antibody levels that are below the limit ofdetection of this assay.The [employer] HIV Ag/Ab Combo assay result andsupplemental assay results should be interpreted inconjunction with the patient's clinical presentation,history and other laboratory results. If the results areinconsistent with clinical evidence, additional testing issuggested to confirm the result. Blood Venous blood specimen / Unknown 12/08/2023 8:01 AM EDT 12/08/2023 11:17 AM EDT Naomi Bocanegra MD LAB BLOOD ORDERABLES Final Result Performing Organization Address City/[facility]/ZIP Co de Phone Number [facility] [address] [place] [phone] * (ABNORMAL) Lipid Panel, Standard (12/08/2023 8:01 AM EDT) Triglycerides 144 <150 mg/dL [facility] Comment:Desirable Triglyceri de: less than 150 mg/dLBorderline High Triglyceride 150-199 mg/dLHigh Triglyceride: 200-499 mg/dLVery High Triglyceride: greater than or equal to 5OO mg/dL Cholesterol 179 <200 mg/dL [facility] Comment:Desirable Cholestero l: less than 200 mg/dLBorderline High Cholesterol: 200-239 mg/dLHigh Cholesterol: greater than 239 mg/dL LDL Cholesterol Calculated 117(H) <100 mg/dL [facility] Comment:Desirable LDL: less than 100 mg/dLNear Optimal/Above Optimal LDL: 110- 129 mg/dLBorderline High LDL: 130-159 mg/dLHigh LDL: 160-189 mg/dLVery High LDL: greater than or equal to 190 mg/dL HDL Cholesterol 34(L) >40 mg/dL [facility] Comment:Desirable HDL: great er than 40 mg/dL Note: This HDL assay may give artificially low results in patients with liver disease. Blood Venous blood specimen / Unknown 12/08/2023 8:01 AM EDT 12/08/2023 11:17 AM EDT us Naomi Bocanegra MD LAB BLOOD ORDERABLES Final Result Performing Organization Address City/[facility]/ZIP Co de Phone Number [facility] [address] [place] [phone] * HPV mRNA E6/E7 (10/04/2019 11:45 AM EST) HPV mRNA E6/E7 Not Detected NOT DETECTED [facility] Comment: This test was performed using the APTIMA(R) HPV Assay ([employer] This assay detects E6/E7 viral messenger RNA (mRNA) from 14 high-risk HPV types (16,18,31,33,35,39,45,51, 52,56,58,59,66,68). For additional information please refer to: http://education.Kontiki/faq/NIW370g7 (This link is being provided for informational/ educational purposes only.) The analytical performance characteristics of this assay have been determined by [employer] [place], [place]. The modifications have not been cleared or approved by the FDA. This assay has been validated pursuant to the CLIA regulations and is used for clinical purposes. Test Performed by [facility], [employer] [facility], [address] [place] [address] Jeferson Reyna M.D., Ph.D., Director of Laboratories , CLIA [id number] Please note: ??Effective 05/24/2016, HPV testing will be performed using [employer] APTIMA test which targets mRNA. Detecting mRNA instead of DNA, as in older methods, offers significant improvements in specificity. 10/04/2019 11:4 5 AM EST us Naomi Bocanegra MD HISTORICAL/NON ORDERA BLE LABS Final Result [facility] [address] from Last 3 Months or Most Recently Relevant to Health Maintenance Insurance * Guarantor: Naomi Chavira Account Type Relation to Patient Date of Phone Billing Address Personal/Family Self 1980 [address] [place] [address] [facility] C[facility] HSN PARTIAL Care Teams Polysomnography Technician Relationship Specialty Start Date End Date Naomi Alfonos MD [address] [place] [phone] PCP - General Family Medicine 06/19/18
--- OUTSIDE RECORDS SUMMARY | 2024-10-18 09:57 | XMS_ITS | Encounter Summary ---
Author Organization [employer] Address [address] 7t [place] [address] Care Team Providers Care Detention Attendant Name Role Phone Naomi Alfonso MD Primary Care Provide r Encounter Details Date Type Department Care Team ([facility] st Contact Info) Description 07/06/2023 Abstract [facility] MEDICINE [address] [place], [place] [phone] Naomi Alfonso MD [address] [place], [place] [phone] Social History Tobacco Use Types Packs/Day Years [...] Description 11/26/2024 9:15 AM EDT Office Visit [facility] MED[facility] [address] [place], [place] [phone] Naomi Alfonso MD [address] [place] [address] documented as of this encounter Visit Diagnoses Not on filedocumented in this encounter Care Teams Detention Attendant Relationship Specialty Start Date End Date Naomi Alfonso MD [address] [place] [phone] PCP - General Family Medicine 06/19/18 documented as of this encounter
--- OUTSIDE RECORDS SUMMARY | 2024-10-18 09:57 | XMS_ITS | Clinical Summary ---
Author Organization [facility] Address [address] [facility] [address] [place] [address] Phone Care Team Providers Care Industrial Ecology Technician Name Role Phone Unavailable Primary Care Provider [...] age to complete this topic [place]
[2024-10-18 10:34] LABS: Hematocrit 36.3 % (37.0-47.0); Hemoglobin 11.7 g/dl (12.0-16.0); Mean Corpuscular HGB Conc 32.2 g/dl (31.0-35.0); Mean Corpuscular Hemoglobin 26.7 pg (27.0-33.0); Mean Corpuscular Volume 82.9 fL (80.0-98.0); Mean Platelet Volume 10.8 fL (9.4-12.3); Platelet Count 258 X10*3/uL (160-400); Red Blood Count 4.38 X10*6/uL (4.20-5.50); Red Cell Distribution Width 13.2 % (11.0-16.0); White Blood Count 7.2 X10*3/uL (4.8-10.8)
[2024-10-18 11:19] LABS: Thyroid Stimulating Hormone 1.76 uIU/mL (0.32-4.0)
== END 2024-10-18 09:51 | disposition home or self-care (01) ==
LOC: HO.LAB 09:50
PROVIDERS: PCP Internal Medicine; Visit Provider Advanced Practice Midwife
DX: N92.1 Excessive and frequent menstruation with irregular cycle (principal); N93.9 Abnormal uterine and vaginal bleeding, unspecified
CPT/HCPCS: 36415; 84443; 85027

== ENCOUNTER 2024-12-21 14:05 | Outpatient (REF) | payer MEDICAID, SELFPAY ==
--- NOTE | ~2024-12-21 | US_ITS ---
CLINICAL HISTORY: N93.9 - Abnormal uterine and vaginal bleeding, unspecified US pelvis transabdominal and transvaginal with color Doppler Comparison: None Findings: Transabdominal scanning performed for overall anatomy. Transvaginal scanning performed for additional detail. LMP: 11/22/2024 Anteverted uterus, prominent in size heterogeneous in echotexture measuring 9.0 x 5.0 x 6.6 cm. Nabothian cysts. Thickened endometrium measuring 17 mm in thickness. Uterine fibroids as follows: 1. Right fundal intramural 2.2 x 2.2 x 2.5 cm 2. Fundal subserosal measuring 1.5 x 1.6 x 1.8 The right ovary measures, 2.3 x 1.4 x 1.6 cm. Isoechoic lesion possible corpus luteum or dense hemorrhagic cyst measuring 1.3 x 1.2 x 1.3 cm. The left ovary measures, 2.4 x 1.8 x 2.8 cm. Normal sonographic appearance left ovary. No adnexal masses or fluid collections. No free fluid Impression: 1. Leiomyomatous uterus. 2. Thickened endometrium homogeneous and well-defined without hyperemia. Equivocal echogenic lesion possible polyp measuring 11 x 8 x 12 mm 3. Indeterminate ovarian lesion on the right. Normal left ovary. 4. Repeat ultrasound in 6 or 12 weeks time recommended. This document has been electronically signed by: Emerson Del Real MD on 12/22/2024 11:22:16
--- OUTSIDE RECORDS SUMMARY | 2024-12-21 14:28 | XMS_ITS | Encounter Summary ---
Author Organization [employer] Address [address] 7t [place] [address] Care Team Providers Care Airplane First Officer Name Role Phone Naomi Alfonso MD Primary Care Provide r Encounter Details Date Type Department Care Team ([facility] st Contact Info) Description 07/08/2023 Abstract [facility] MED[facility]INE [address] [place], [place] [phone] Naomi Alfonso MD [address] [place], [place] [phone] Social History Tobacco Use Types Packs/Day Years [...] Care Team (Late st Contact Info) Description 01/21/2025 9:15 AM EDT Office Visit [facility] [address] [place], [place] [phone] Naomi Alfonso MD [address] [place] [address] documented as of this encounter Visit Diagnoses Not on filedocumented in this encounter Care Teams Airplane First Officer Relationship Specialty Start Date End Date Naomi Alfonso MD [address] [place] [address] [phone] PCP - General Family Medicine 06/19/18 documented as of this encounter
--- OUTSIDE RECORDS SUMMARY | 2024-12-21 14:28 | XMS_ITS | Clinical Summary ---
Author Organization [facility] Address [address] [facility] [address] [place] [address] Phone Care Team Providers Care Supervisor Cell Maintenance Name Role Phone Unavailable Primary Care Provider [...] - 19+ 3-dose series) 1997 Influenza Vaccine (Season Ended) 2025 Pneumococcal Vaccine: Peds ( 0 to 5 Years) and At-Risk Patients (6 to 49 Years) Aged Out No longer eligible b ased on patient's age to complete this topic [place]
--- OUTSIDE RECORDS SUMMARY | 2024-12-21 14:28 | XMS_ITS | Clinical Summary ---
Author Organization [employer] Address [address] [facility] 7[address] [place] [address] Care Team Providers Care Interactive Media Director Name Role Phone Naomi Alfonso MD Primary [...] Do not swallow. 1 each 11 4 Active famotidine (Pepcid) 20 MG tabletIndication s:Chronic gastritis, presence of bleeding unspecified, unspecified gastritis type Take 1 tablet (20 mg) by mouth 2 times daily. 60 tablet 11 4 Active Vitamin D High Potency 25 MCG (1000 UT) capsuleIndicatio ns:Vitamin D3 deficiency TAKE 1 CAPSULE BY MOUTH DAILY IN THE MORNING 90 capsule 1 4 Active betamethasone valerate (Valisone) 0.1 % cream Apply topically if needed in the morning and at bedtime (dryness). 45 g 4 Active Blood Pressure Monitor [facility] [place] Check BP daily 1 each 4 Active [...] (BMI) of 40.0 to 44.9 in adult ([facility]) Inject 0.25 mg under the skin 1 [...] Encounters Date Type Department Care Team Description 11/23/2024 Population [facility] Risk Score [facility] () Department [address] [place] [phone] Provider, Population Health Generic 11/16/2024 Patient Outreach [facility] [address] [place] [address] Naomi Alfonso MD Pre-visit Planning ((Unable to reach for PVP screening, LVM)) 10/30/2024 Telephone [facility] [address] [place] [address] Naomi Alfonso MD 10/18/2024 Orders Only GENERIC EXTERNAL DATA DEPARTMENT Provider, Generic External Data 10/02/2024 Telephone [facility] [address] [place] [address] Naomi Alfonso MD Durable Medical Equipment (Nebulizer) from Last 3 Months Immunizations Name Administration [...] Description 01/21/2025 9:15 AM EDT Office Visit [facility] [address] [place] [address] Naomi Alfonso MD [address] [place] [address] Health Maintenance Due Date Last Done Comments CT Colonography 1978 Colonoscopy 1978 Colorectal Cancer Screening 1978 FIT DNA/Cologuard 1978 FIT 1978 FOBT 1978 Sigmoidoscopy 1978 Alcohol/Substance Use Screening 1990 Family Planning (PISQ) 1993 Pneumococcal Vaccine: Pediatrics (0 to 5 Years) and At-Risk Patients (6 to 49) Years) (1 of 2 - PCV) 1997 DTaP/Tdap/Td Vaccines (2 - T d or Tdap) 04/04/2022 04/04/2012 COVID-19 Vaccine (2 - 2023-2 5 season) 2024 06/17/2021 Influenza Vaccine (#1) 2024 10/03/2012 SDOH Screening 10/20/2024 10/20/2023 Depression Screening 10/28/2024 10/28/2023, 10/28/2023 Tobacco Screening 06/12/2025 06/12/2024 Mammogram 08/17/2025 08/17/2024, 10/17/2019 Pap Smear 10/18/2027 10/18/2024 Zoster Vaccines (1 of 2) 2028 Lipid Panel 12/07/2028 12/08/2023, 01/13/2023, 09/09/2021 Cervical Cancer Screening 10/18/2029 HPV/Cotest 10/18/2029 10/18/2024, 10/04/2019 RSV Patients and Patients Aged 60 years [...] Procedure Name Priority Date/Time Associated Diagnosis Comments PAP SMEAR Routine 10/18/2024 10:01 AM EST HPV DNA, LOW/HIGH RISK Routine 10:01 AM EST TSH Routine 10/18/2024 10:01 AM EST CBC Routine 10/18/2024 10:01 AM EST BACTERIAL VAGINOSIS PANEL Routine 10/18/2024 8:56 AM EST CHLAMYDIA/N. GONORRHOEAE RNA, TMA, UROGENITAL Routine 10/18/2024 8:56 AM EST BI MAMMOGRAM SCREENING TOMOSYNTHESIS BILATERAL Routine 08/17/2024 9:00 AM EST HEPATITIS C AB W/REFL TO HCV RNA, QN, PCR Routine 12/08/2023 8:01 AM EDT Encounter for preventive health examination HIV 1/2 ANTIGEN/ANTIBODY, FOURTH GENERATION W/RFL Routine 12/08/2023 8:01 AM EDT Encounter for preventive health examination LIPID PANEL, STANDARD Routine 12/08/2023 8:01 AM EDT Encounter for preventive health examination from Last 3 Months or Most Recently Relevant to Health Maintenance Results * (ABNORMAL) HPV DNA, Low/High Risk (10/18/2024 10:01 AM EST) HPV High Risk Positive(A) Negative [facility] HPV Genotype 16 Negative Negative [facility] HPV Genotype 18 Negative Negative [facility] Comment:HPV testing performe d at (CLIA#[id number]), [address] [place] [phone].Testing for HPV was performed using the [employer] 6800system. The presence of HPV in the female genital tract isassociated with a number of diseases, including cervicalcarcinoma. The HPV DNA high risk pool tests for HPV 31, 33,35, 39, 45, 51, 52, 56, 58, 59, 66 and 68. The testing forHPV 16 and 18 genotypes has also been performed. A positiveresult indicates detection of nucleic acid sequences fromone or more subtypes, whereas a negative result indicatessuch sequences were not detected. 10/18/2024 10:0 1 AM EST 10/19/2024 10:15 AM EST us Generic External Data Provider LAB BLOOD ORDERAB LES Final Result [facility] [address] [place] [phone] * (ABNORMAL) CBC (10/18/2024 10:01 AM EST) White Blood Count 7.2 4.8 - 10.8 X10*3/uL [facility] Red Blood Count 4.38 4.20 - 5.50 X10*6/uL [facility] Hemoglobin 11.7(L) 12.0 - 16.0 g/dl [facility] Hematocrit 36.3(L) 37.0 - 47.0 % [facility] Mean Corpuscular Volume 82.9 80.0 - 98.0 fL [facility] Mean Corpuscular Hemoglobin 26.7(L) 27.0 - 33.0 pg [facility] Mean Corpuscular HGB Conc 32.2 31.0 - 35.0 g/dl [facility] Red Cell Distribution Width 13.2 11.0 - 16.0 % [facility] Platelet Count 258 160 - 400 X10*3/uL [facility] Mean Platelet Volume 10.8 9.4 - 12.3 fL [facility] NRBC Pct Auto 0.0 0.0 - 0.2 /100WBC [facility] NRBC Abs Auto 0.000 0.0 - 0.012 X10*3/uL [facility] 10/18/2024 10:0 1 AM EST 10/18/2024 10:01 AM EST Generic External Data Provider LAB BLOOD ORDERAB LES Final Result Performing Organization Address [facility]/ZIP Co de Phone Number [facility] [address] [place] [phone] * TSH (10/18/2024 10:01 AM EST) Thyroid Stimulating Hormone 1.76 0.32 - 4.0 uIU/mL [facility] Comment:TSH 3rd Generation ( [employer]) 10/18/2024 10:0 1 AM EST 10/18/2024 10:01 AM EST Generic External Data Provider LAB BLOOD ORDERAB LES Final Result Performing Organization Address [facility]/ZIP Co de Phone Number [facility] [address] [place] [phone] * Pap Smear (10/18/2024 10:01 AM EST) 10/18/2024 10:0 1 AM EST 10/19/2024 7:00 AM EST Narrative [facility] - 11/01/2024 11:40 AM EST ----- ------- Name: Naomi Chavira ? Age/Sex: 44/F ? : 1980 Unit#: [id number] ?? Attend Dr: Marah Das CNM ?Re10/18/24 ?Status: DEP REF ? Location: HO.LNP ?Disch: ? ----- ------- SPEC : [id number] ? RECD: 10/19/24 ? STATUS: ??SOUT ? REQ NUM: [id number] ? AUNDREA: 10/18/24-100 ? SUBM DR: Marah Das CNM ? ENTERED: ??10/19/24 ?SP TYPE: Pap Smr ?OTHR DR: Naomi Alfonso MD ? ORDERED: ??Pap Smear ?Addendum Addendum ??1 ?Entered: 11/01/24-113 HPV High Risk: ??Positive HPV Genotyping 16: ??Negative HPV Genotyping 18: ??Negative Addendum Signed (signature on file) Parker Roper CT (ASCP) 11/01/24 1140 ? ----- ------- ? Interpretation ?? Satisfactory for evaluation. ?? Negative for intraepithelial lesion or malignancy. ? HPV High Risk: ??Negative ? HPV Genotyping 16: ??Negative ?? HPV Genotyping 18: ??Negative ?Clinical Information LMP: Unknown date Previous PAP test: 3 years ago, WNL Other history: Abnormal uterine bleeding ? Material Received ?? Cervix Copies To: ?? Naomi Alfonso MD ?? [facility] ?? [address] ?? [place] [address] ?? [phone] ? CONTINUED ON NEXT PAGE ----- ------- Name: Naomi Chavira ? Age/Sex: 44/F ? : 1980 Unit#: [id number] ?? Attend Dr: Marah Das CNM ?Re10/18/24 ?Status: DEP REF ? Location: HO.LNP ?Disch: ? ----- ------- SPEC : [id number] ? RECD: 10/19/24 ? STATUS: ??SOUT ? REQ NUM: [id number] ? AUNDREA: 10/18/24-100 ? SUBM DR: Marah Das CNBianca ? ENTERED: ??10/19/24 ?SP TYPE: Pap Smr ?OTHR DR: Naomi Alfonso MD ? ORDERED: ??Pap Smear ? Copies To: ??(Continued) ?? Marah Das CNM ?? [facility] ?? [address] ?? [place] [address] ?? [phone] ----- ------- Signed (signature on file) Tiffanie Bonilla CT ([facility]) 10/28/24 1818 ? (signature on file) Parker Roper CT ([facility]) 11/01/24 9500 ? ----- ------- ? END OF REPORT ? us Generic External Data Provider LAB CYTOLOGY ARTURO MCDOWELL Final Result [facility] [address] [place] [phone] * Bacterial Vaginosis (10/18/2024 8:56 AM EST) TRICHOMONAS VAGINALIS DETECTION BY PCR NOT DETECTED Not Detect [facility] BACTERIAL VAGINOSIS DETECTION BY PCR NEGATIVE Negative [facility] Comment:The BV organism targ ets of the Xpert Xpress MVP test can becommensal in women; Xpert Xpress MVP positive results forbacterial vaginosis should be considered in conjunction withother clinical and patient information to determine thedisease status. Organisms that are not detected by the XpertXpress MVP test have also been reported to be associatedwith BV and aerobic vaginitis.The Xpert Xpress MVP test performance has not been evaluatedin patients under the age of 14. BRENDA GROUP DETECTION BY PCR NOT DETECTED Not Detect [facility] Brenda glab krusei PCR NOT DETECTED Not Detect [facility] 10/18/2024 8:56 AM EST 10/18/2024 3:28 PM EST us Generic External Data Provider LAB MICROBIOLOGY - GENERAL ORDERABLES Final Result [facility] [address] [place] [phone] * Chlamydia/N. Gonorrhoeae RNA, TMA, Urogenitial (10/18/2024 8:56 AM EST) CT PCR NOT DETECTED Not Detect. [facility] Comment:A not detected test result does not exclude the possibilityof infection because test results can be affected byimproper specimen collection, concurrent antibiotic therapy,or the number of organisms in the specimen which may bebelow the sensitivity of the test. As with many diagnostictests, results from the Xpert CT/NG assay should beinterpreted in conjunction with other laboratory andclinical data available to the clinician.Xpert CT/NG performance has not been evaluated in patientsless than 14 years of age. The assay should not be used forthe evaluationof suspected sexual abuse or for other medico-legalindications. Additional testing is recommended in anycircumstance when false positive or false negative resultscould lead to adverse medical, social or psychologicalconsequences. NG PCR NOT DETECTED Not Detect. [facility] Comment:A not detected test result does not exclude the possibilityof infection because test results can be affected byimproper specimen collection, concurrent antibiotic therapy,or the number of organisms in the specimen which may bebelow the sensitivity of the test. As with many diagnostictests, results from the Xpert CT/NG assay should beinterpreted in conjunction with other laboratory andclinical data available to the clinician.Xpert CT/NG performance has not been evaluated in patientsless than 14 years of age. The assay should not be used forthe evaluationof suspected sexual abuse or for other medico-legalindications. Additional testing is recommended in anycircumstance when false positive or false negative resultscould lead to adverse medical, social or psychologicalconsequences. 10/18/2024 8:56 AM EST 10/18/2024 3:28 PM EST Narrative [facility] - 10/19/2024 2:05 AM EST Vaginal us Generic External Data Provider LAB MICROBIOLOGY - GENERAL ORDERABLES Final Result [facility] [address] [place] [phone] * BI Mammogram Screening Tomosynthesis Bilateral (08/17/2024 9:00 AM EST) Anatomical Region Laterality Modality Breast Bilateral Mammography 08/17/2024 9:00 AM EST Narrative 08/23/2024 10:19 AM EST ? [facility] ? [address] ?[place] [address] ? Mammography Report ? Signed with Addenda ? Patient: Ellen AlekNaomi Alberts ? MR#: [id number] ? : 1980 ?Acct:[id number] ? Age/Sex: 44 / F ?ADM Date: 08/17/ ? Loc: HO.MAMMO ? Attending Dr: Naomi Bocanegra MD ? Ordering Physician: Naomi Alfonso MD ?Results: ?? 1Negative ? Date of Service: 08/17/24 ?Follow Up: 1 Year From Orig ?? inal Mammogram ? Procedure(s): MM tomosynthesis screening BI ?? Accession Number(s): [id number] ? cc: Naomi Alfonso MD ?ADDENDUM ? [...] ??Ena Downing DO ??08/23/2024 10:11 AM EST ?? RP ? Dictated By: ?Ena Downing DO ? Signed By: ?<Electronically signed by Ena Downing, DO in OV> ? 08/23/24 1011 ? DD/ 0900 ? TD/TT: 08/17/24 0930 ? Generating Plant Superintendent: ? Procedure Note Donrodolfo, Image - 08/29/2024 [facility] [address] [place] [address] Mammography Report Signed with [place] Patient: Naomi Chavira MR#: [id number] : 1980Acct:[id number] Age/Sex: 44 / FADM Date: 08/17/24 Loc: HO.MAMMO Attending Dr: Naomi Bocanegra MD Ordering Physician: Naomi Alfonsoesults: 1Negative Date of Service: 08/17/24Follow Up: 1 Year From Orig ina Mammogram Procedure(s): MM tomosynthesis screening BI Accession Number(s): [id number] cc: Naomi Alfonso MD ADDENDUM ADDENDUM #1 [...] by: Ena Downing DO 08/29/2024 02:20 PM [facility] Workstation: [id number] Addendum Dictated By: Ena Downing DO Addendum [...] by: Ena Downing DO 08/23/2024 10:11 AM [facility] Dictated By: Ena Downing DO Signed By: <Electronically signed by Ena Downing DO in OV> 08/23/24 1011 DD/ 9 TD/TT: 08/17/24929 Generating Plant Superintendent: Naomi Bocanegra MD IMG BI PROCEDURES Bobby lily Result - Final * Hepatitis C Antibody with Reflex to HCV, RNA, Quantitative, Real-Time PCR (12/08/2023 8:01 AM EDT) Hepatitis C Antibody Nonreactive Nonreactive [facility] Comment:Antibodies to HCV no t detected; does not exclude early acuteHCV infection. Blood Venous blood specimen / Unknown 12/08/2023 8:01 AM EDT 12/08/2023 11:17 AM EDT us Naomi Bocanegra MD LAB BLOOD ORDERABLES Final Result Performing Organization Address [facility] Co de Phone Number [facility] [address] [place] [phone] * HIV-1/2 Antigen and Antibodies, Fourth Generation, with Reflexes (12/08/2023 8:01 AM EDT) HIV AB/AG Nonreactive Nonreactive [facility] Comment:HIV-1 p24 Ag and/or HIV-1/HIV-2 Ab not detected.A test result that is nonreactive does not exclude thepossibility of exposure to or infection with HIV-1 and/orHIV-2. Nonreactive results in this assay for individualswith prior exposure to HIV-1 and/or HIV-2 may be due toantigen and antibody levels that are below the limit ofdetection of this assay.The [employer] HIV Ag/Ab Combo assay result andsupplemental assay results should be interpreted inconjunction with the patient's clinical presentation,history and other laboratory results. If the results areinconsistent with clinical evidence, additional testing issuggested to confirm the result. Blood Venous blood specimen / Unknown 12/08/2023 8:01 AM EDT 12/08/2023 11:17 AM EDT us Naomi Bocanegra MD LAB BLOOD ORDERABLES Final Result Performing Organization Address [facility] Co de Phone Number [facility] [address] [place] [phone] * (ABNORMAL) Lipid Panel, Standard (12/08/2023 8:01 AM EDT) Triglycerides 144 <150 mg/dL [facility] Comment:Desirable Triglyceri de: less than 150 mg/dLBorderline High Triglyceride 150-199 mg/dLHigh Triglyceride: 200-499 mg/dLVery High Triglyceride: greater than or equal to 5OO mg/dL Cholesterol 179 <200 mg/dL [facility] Comment:Desirable Cholestero l: less than 200 mg/dLBorderline High Cholesterol: 200-239 mg/dLHigh Cholesterol: greater than 239 mg/dL LDL Cholesterol Calculated 117(H) <100 mg/dL [facility] Comment:Desirable LDL: less than 100 mg/dLNear Optimal/Above Optimal LDL: 110- 129 mg/dLBorderline High LDL: 130-159 mg/dLHigh LDL: 160-189 mg/dLVery High LDL: greater than or equal to 190 mg/dL HDL Cholesterol 34(L) >40 mg/dL [facility] Comment:Desirable HDL: great er than 40 mg/dL Note: This HDL assay may give artificially low results in patients with liver disease. Blood Venous blood specimen / Unknown 12/08/2023 8:01 AM EDT 12/08/2023 11:17 AM EDT Naomi Bocanegra MD LAB BLOOD ORDERABLES Final Result [facility] [address] [place] [phone] from Last 3 Months or Most Recently Relevant to Health Maintenance Insurance [facility] C3 HSN PARTIAL Care Teams Interactive Media Director Relationship Specialty Start Date End Date Naomi Alfnoso MD [address] [place] [phone] PCP - General Family Medicine 06/19/18
--- OUTSIDE RECORDS SUMMARY | 2024-12-21 14:28 | XMS_ITS | Encounter Summary ---
Author Organization [employer] Address [address] [address] [place] [address] Care Team Providers Care Assistant Shift Supervisor Name Role Phone Naomi Alfonso MD Primary Care Provide r Encounter Details Date Type Department Care Team ([facility] st Contact Info) Description 07/06/2023 Abstract [facility] [address] [place], [place] [phone] Naomi Alfonso MD [address] [place], [place] [phone] Social History Tobacco Use Types Packs/Day Years [...] Description 01/21/2025 9:15 AM EDT Office Visit [facility] [address] [place], [place] [phone] Naomi Alfonso MD [address] [place] [address] documented as of this encounter Visit Diagnoses Not on filedocumented in this encounter Care Teams Assistant Shift Supervisor Relationship Specialty Start Date End Date Naomi Alfonso MD [address] [place] [address] [phone] PCP - General Family Medicine 06/19/18 documented as of this encounter
--- OUTSIDE RECORDS SUMMARY | 2024-12-21 14:29 | XMS_ITS | Encounter Summary ---
Author Organization [employer] Address [address] [facility] [address] [place] [address] Care Team Providers Care Dry Pan Feeder Name Role Phone Naomi Alfonso MD Primary Care Provide r Encounter Details Date Type Department Care Team ([facility] Contact Info) Description 02/08/2023 Telephone [facility] [address] [place], [place] [phone] Naomi Alfonso MD [address] [place] [address] Social History Tobacco Use Types Packs/Day Years [...] Department Care Team (Late Contact Info) Description 01/21/2025 9:15 AM EDT Office Visit [facility] [address] [place], [place] [phone] Naomi Alfonso MD [address] [place], [place] [phone] documented as of this encounter Visit Diagnoses Not on filedocumented in this encounter Care Teams Dry Pan Feeder Relationship Specialty Start Date End Date Naomi Alfonso MD [address] [place] [phone] PCP - General Family Medicine 06/19/18 documented as of this encounter
== END 2024-12-21 14:06 | disposition home or self-care (01) ==
LOC: HO.US 14:05
PROVIDERS: PCP Internal Medicine; Visit Provider Advanced Practice Midwife
DX: N93.9 Abnormal uterine and vaginal bleeding, unspecified (principal)
CPT/HCPCS: 76830; 76856

== ENCOUNTER → 2024-12-21 14:07 | Outpatient (BNV) | payer MEDICAID, SELFPAY | PROVIDERS: PCP Internal Medicine; Visit Provider Radiology Diagnostic Radiology | DX: D25.9 Leiomyoma of uterus, unspecified (principal) | CPT/HCPCS: 76830; 76856 ==

== ENCOUNTER 2024-12-26 07:35 | Outpatient (AMB) | payer MEDICAID, SELFPAY ==
--- NOTE | 2024-12-26 07:36 | MHC.OFFVIS ---
Intake Visit Reasons: US follow up Midwife Practitioner: Midwife Practitioner Present Allergies No Known Allergies Allergy (Verified 12/26/24 07:36) Is last menstrual period known: Yes Last menstrual period: 11/26/24 HPI Comments Details: Patient is here today for a follow up pelvic ultrasound. History of regular periods heavy for 2-3/out of 5 days. History of tubal ligation. Upset regarding her recent Pap smear for positive HPV, cytology negative. She reports being in a monogamous relationship and is tearful discussing her concerns. [facility] Medical History (Updated 12/26/24 @ 09:27 by Marah Das CNM) Abnormal Pap smear of cervix Fibroid Ovarian cyst Ectopic Abnormal uterine bleeding (AUB) Asthma Surgical History Tubal ligation status History of carpal tunnel surgery of left wrist Family History Father No problems noted. Mother Stroke Social History Alcohol intake: never Patient Tobacco Use Status: Never used Tobacco Current occupational status: unemployed Current occupation: right handed Female Reproductive History Menstrual Date of last menstrual period: 11/26/24 Review of Systems Const All systems reviewed & are unremarkable except as noted in HPI and below Endo Reports no additional complaints Physical Exam Const General: cooperative, healthy appearing and no acute distress Psych Appearance: well kempt Attitude: cooperative Thought process: Normal thought process present Results Reviewed Results Reviewed: [address] [address] Ultrasound Report Signed Patient: Naomi Chavira MR#: [id number] : 1980 Acct:[id number] Age/Sex: 44 / F ADM Date: 12/21/24 Loc: HO.US Attending Dr: Marah Das CNM Ordering Physician: Marah Das CNM Date of Service: 12/21/24 Procedure(s): US pelvic and transvaginal Accession Number(s): [id number] cc: Naomi Alfonso MD; Marah Das CNM~ CLINICAL HISTORY: N93.9 - Abnormal uterine and vaginal bleeding, unspecified US pelvis transabdominal and transvaginal with color Doppler Comparison: None Findings: Transabdominal scanning performed for overall anatomy. Transvaginal scanning performed for additional detail. LMP: 11/22/2024 Anteverted uterus, prominent in size heterogeneous in echotexture measuring 9.0 x 5.0 x 6.6 cm. Nabothian cysts. Thickened endometrium measuring 17 mm in thickness. Uterine fibroids as follows: 1. Right fundal intramural 2.2 x 2.2 x 2.5 cm 2. Fundal subserosal measuring 1.5 x 1.6 x 1.8 The right ovary measures, 2.3 x 1.4 x 1.6 cm. Isoechoic lesion possible corpus luteum or dense hemorrhagic cyst measuring 1.3 x 1.2 x 1.3 cm. The left ovary measures, 2.4 x 1.8 x 2.8 cm. Normal sonographic appearance left ovary. No adnexal masses or fluid collections. No free fluid Impression: 1. Leiomyomatous uterus. 2. Thickened endometrium homogeneous and well-defined without hyperemia. Equivocal echogenic lesion possible polyp measuring 11 x 8 x 12 mm 3. Indeterminate ovarian lesion on the right. Normal left ovary. 4. Repeat ultrasound in 6 or 12 weeks time recommended. This document has been electronically signed by: Emerson Del Real MD on 12/22/2024 11:22:16 Dictated By: Emerson Del Real MD Signed By: <Electronically signed by Emerson Del Real MD in OV> 12/22/24 1123 DD/ 1122 TD/TT: 12/22/24 1122 Director Operating: Assessment & Plan Assessment & Plan (1) Ovarian cyst: Code(s): N83.209 - Unspecified ovarian cyst, unspecified side Category: Medical Qualifiers: Laterality: right Qualified Code(s): N83.201 - Unspecified ovarian cyst, right side Plan: Discussed: Ultrasound findings- Counseled regarding findings of: Impression: 1. Leiomyomatous uterus. 2. Thickened endometrium homogeneous and well-defined without hyperemia. Equivocal echogenic lesion possible polyp measuring 11 x 8 x 12 mm 3. Indeterminate ovarian lesion on the right. Normal left ovary. 4. Repeat ultrasound in 6 or 12 weeks time recommended. Complex ovarian cyst, which is often benign, and most resolve on their own overtime. Some develop into premalignant or malignant tumors. Limitations of testing for diagnostic purposes. Further monitoring and evaluation is recommended with US, possible CT, or MRI study. Follow up in person for test results. All of her questions and concerns were addressed to the best of my ability and shared decision making. She is agreeable to the plan of care. This note is constructed using voice recognition software. While every effort has been made to ensure accuracy, supervisor fiberglass boat assembly errors may have been included. (2) Fibroid: Code(s): D21.9 - Benign neoplasm of connective and other soft tissue, unspecified Category: Medical Plan: Counseled re: Leiomyoma: common pelvic neoplasm. Differential diagnosis-may include but not limited to- leiomyosarcoma which is a rare uterine sarcoma 3-7/100,000, difficult to distinguish from fibroids on ultrasound from uterine sarcoma's. Unlikely any single test will have a highly positive predictive value. Hysterectomy is not recommended for sole purpose of excluding malignant neoplasm. Consult for surgical exploration, medical treatment, other treatments, verses expectant management, pros and cons, risks and benefits. Expectant management follow up in 6 months, then yearly for stability. Patient prefers to proceed with expectant management. Report any PMB/AUB, pelvic pressure, bloating, or pain. Referral to MD if indicated for level of care if indicated. (3) Endometrial polyp: Code(s): N84.0 - Polyp of corpus uteri Plan: Discussed in detail findings, effects of menstrual cycle bleeding which can lead to heavy menstrual bleeding and/or irregular cycles patterns, anticipatory guidance for hysteroscopy procedure, reasons for removal. The patient expressed understanding and agreement with the plan of care. All of her questions and concerns were addressed to the best of my ability. (4) Abnormal Pap smear of cervix: Code(s): R87.619 - Unspecified abnormal cytological findings in specimens from cervix uteri Category: Medical Qualifiers: Abnormal Pap type: other Qualified Code(s): R87.618 - Other abnormal cytological findings on specimens from cervix uteri Plan: Discuss findings on Pap smear, recommended repeat in 1 year from date of for screen. Transmission, progression and regression. Differences between cervical HPV an external condylomata. Plan Reviewed findings discussed polyp, mostly benign recommend removal due to potential for any atypical changes and effects on menstrual cycle with heavy bleeding or other abnormal pattern. Advised to make a consult appointment with Dr. Manriquez for hysteroscopy. The patient expressed understanding and agreement with the plan of care. All of her questions and concerns were addressed to the best of my ability. This note is constructed using voice recognition software. While every effort has been made to ensure accuracy, supervisor fiberglass boat assembly errors may have been included. Total time I personally spent on visit and management today: ?40 minutes. Time spent included review of pertinent office notes in the electronic health record; review of laboratory and imaging results; review of personal family medical history; performing physical exam; discussing diagnosis and plan of care with the patient; documenting the encounter in the EMR. Orders: Orders US pelvic and transvaginal 03/04/25 N83.209 - Unspecified ovarian cyst, unspecified side US pelvic and transvaginal 6 Months D21.9 - Benign neoplasm of connective and other soft tissue, unspecified Coding Level of Care Code Est Pt Level 3 (63243) Diagnoses Cyst of right ovary N83.201 Laterality: right Fibroid D21.9 Endometrial polyp N84.0 Other abnormal cytological finding of specimen from cervix R87.618 Abnormal Pap type: other
--- OUTSIDE RECORDS SUMMARY | 2024-12-26 07:37 | XMS_ITS | Clinical Summary ---
Author Organization [employer] Address [address] [place] [address] Care Team Providers Care [employer] Agent Name Role Phone Naomi Alfonso MD Primary [...] (BMI) of 40.0 to 44.9 in adult Inject 0.25 mg under the skin 1 [...] Encounters Date Type Department Care Team Description 12/21/2024 Orders Only [facility] External Provider, [facility] 11/23/2024 [facility] Risk Score [facility] () Department [address] [place] [phone] Provider, [facility] Generic 11/16/2024 Patient Outreach [facility] [address] [place] [phone] Naomi Alfonso MD Pre-visit Planning ((Unable to reach for PVP screening, LVM)) 10/30/2024 Telephone [facility] [address] [place] [phone] Naomi Alfonso MD 10/18/2024 Orders Only GENERIC EXTERNAL DATA DEPARTMENT Provider, Generic External Data 10/02/[address] [address] Naomi Alfonso MD Durable Medical Equipment (Nebulizer) [...] Description 01/21/2025 9:15 AM EDT Office Visit [facility] [address] [place] [address] Naomi Alfonso MD [address] [place] [address] Health Maintenance Due Date Last Done Comments [...] Procedure Name Priority Date/Time Associated Diagnosis Comments US PELVIS TRANSVAGINAL Routine 11:22 AM EDT PAP SMEAR Routine 10/18/2024 10:01 AM EST [...] Recently Relevant to Health Maintenance Results * US Pelvis Transvaginal (12/22/2024 11:22 AM EDT) Anatomical Region Laterality Modality Pelvis Ultrasound 12/22/2024 11:2 2 AM EDT Narrative 12/22/2024 11:24 AM EDT ? [facility] ?[address] ?[place] [address] ? Ultrasound Report ? Signed ? Patient: Ellen Gaston,Naomi Alberts ? MR#: [id number] ? : 1980 ?Acct:[id number] ? Age/Sex: 44 / F ?ADM Date: 12/21/24 ? Loc: HO.US ? Attending Dr: Marah Das CNM ? Ordering Physician: Marah Das CNM ?? Date of Service: 12/21/24 ?? Procedure(s): US pelvic and transvaginal ?? Accession Number(s): [id number] ? cc: Naomi Alfonso MD; Marah Das CNM ? CLINICAL HISTORY: N93.9 - Abnormal uterine and vaginal bleeding, unspecified ? US pelvis transabdominal and transvaginal with color Doppler ? Comparison: None ? Findings: ?? Transabdominal scanning performed for overall anatomy. Transvaginal ?? scanning performed for additional detail. ? LMP: 11/22/2024 ? Anteverted uterus, prominent in size heterogeneous in echotexture ?? measuring 9.0 x 5.0 x 6.6 cm. Nabothian cysts. ?? Thickened endometrium measuring 17 mm in thickness. ? Uterine fibroids as follows: ? 1. Right fundal intramural 2.2 x 2.2 x 2.5 cm ?? 2. Fundal subserosal measuring 1.5 x 1.6 x 1.8 ? The right ovary measures, 2.3 x 1.4 x 1.6 cm. Isoechoic lesion possible ?? corpus luteum or dense hemorrhagic cyst measuring 1.3 x 1.2 x 1.3 cm. ?? The left ovary measures, 2.4 x 1.8 x 2.8 cm. Normal sonographic appearance ?? left ovary. ?? No adnexal masses or fluid collections. ?? No free fluid ? Impression: ?? 1. Leiomyomatous uterus. ?? 2. Thickened endometrium homogeneous and well-defined without hyperemia. ?? Equivocal echogenic lesion possible polyp measuring 11 x 8 x 12 mm ?? 3. Indeterminate ovarian lesion on the right. Normal left ovary. ?? 4. Repeat ultrasound in 6 or 12 weeks time recommended. ? This document has been electronically signed by: Emerson Del Real MD on ?? 12/22/2024 11:22:16 ? Dictated By: ?Emerson Del Real MD ? Signed By: ?<Electronically signed by Emerson Del Real MD in OV> ?12/22/24 1123 ? DD/ 1122 ? TD/TT: 12/22/24 1122 ? Industrial [employer] Fitter: ? Procedure Note Donotuseinterpreter, Image - 12/22/2024 [place] [address] Ultrasound Report Signed Patient: Naomi Chavira MR#: [id number] : 1980Acct:[id number] Age/Sex: 44 / FADM Date: 12/21/24 Loc: HO.US Attending Dr: Marah Das CNM Ordering Physician: Marah Das CNM Date of Service: 12/21/24 Procedure(s): US pelvic and transvaginal Accession Number(s): [id number] cc: Naomi Alfonso MD; Marah Das CNM CLINICAL HISTORY: N93.9 - Abnormal uterine and vaginal bleeding,unspecified US pelvis transabdominal and transvaginal with color Doppler Comparison: None Findings: Transabdominal scanning performed for overall anatomy. Transvaginal scanning performed for additional detail. LMP: 11/22/2024 Anteverted uterus, prominent in size heterogeneous in echotexture measuring 9.0 x 5.0 x 6.6 cm. Nabothian cysts. Thickened endometrium measuring 17 mm in thickness. Uterine fibroids as follows: 1. Right fundal intramural 2.2 x 2.2 x 2.5 cm 2. Fundal subserosal measuring 1.5 x 1.6 x 1.8 The right ovary measures, 2.3 x 1.4 x 1.6 cm. Isoechoic lesion possible corpus luteum or dense hemorrhagic cyst measuring 1.3 x 1.2 x 1.3 cm. The left ovary measures, 2.4 x 1.8 x 2.8 cm. Normal sonographic appearance left ovary. No adnexal masses or fluid collections. No free fluid Impression: 1. Leiomyomatous uterus. 2. Thickened endometrium homogeneous and well-defined without hyperemia. Equivocal echogenic lesion possible polyp measuring 11 x 8 x 12 mm 3. Indeterminate ovarian lesion on the right. Normal left ovary. 4. Repeat ultrasound in 6 or 12 weeks time recommended. This document has been electronically signed by: Emerson Del Real MD on 12/22/2024 11:22:16 Dictated By: Emerson Del Real MD Signed By: <Electronically signed by Emerson Del Real MD in OV> 12/22/24 1123 DD/ 1122 TD/TT: 12/22/24 1122 Industrial [employer] Fitter: us [facility] External Provider IMG US PROCEDURES Final Result * (ABNORMAL) HPV DNA, Low/High Risk (10/18/2024 10:01 AM EST) HPV High Risk Positive(A) Negative [facility] HPV Genotype 16 Negative Negative [facility] HPV Genotype 18 Negative Negative [facility] Comment:HPV testing performe d at [facility] (CLIA#[id number]), [address] [place] [address].Testing for HPV was performed using the Ignacio [...] Provider LAB BLOOD ORDERAB LES Final Result [facility] [address] [place] [address] [phone] * (ABNORMAL) CBC (10/18/2024 10:01 AM EST) White Blood Count 7.2 4.8 - 10.8 X10*3/uL [facility] Red Blood Count 4.38 4.20 - 5.50 X10*6/uL [facility] Hemoglobin 11.7(L) 12.0 - 16.0 g/dl [facility] Hematocrit 36.3(L) 37.0 - 47.0 % [facility] Mean Corpuscular Volume 82.9 80.0 - 98.0 fL [facility] Mean Corpuscular Hemoglobin 26.7(L) 27.0 - 33.0 pg [facility] Mean Corpuscular HGB Conc 32.2 31.0 - 35.0 g/dl [facility] Red Cell Distribution Width 13.2 11.0 - 16.0 % [facility] Platelet Count 258 160 - 400 X10*3/uL [facility] Mean Platelet Volume 10.8 9.4 - 12.3 fL [facility] NRBC Pct Auto 0.0 0.0 - 0.2 /100WBC [facility] NRBC Abs Auto 0.000 0.0 - 0.012 X10*3/uL [facility] 10/18/2024 10:0 1 AM EST 10/18/2024 10:01 AM EST us Generic External Data Provider LAB BLOOD ORDERAB LES Final Result Performing Organization Address City/[facility] [address]/ZIP Co de Phone Number [facility] [address] [place] [phone] * TSH (10/18/2024 10:01 AM EST) Thyroid Stimulating Hormone 1.76 0.32 - 4.0 uIU/mL [facility] Comment:TSH 3rd Generation ( [facility]) 10/18/2024 10:0 1 AM EST 10/18/2024 10:01 AM EST us Generic External Data Provider LAB BLOOD ORDERAB LES Final Result [facility] [address] [place] [phone] * Pap Smear (10/18/2024 10:01 AM EST) 10/18/2024 10:0 1 AM EST 10/19/2024 7:00 AM EST Narrative [facility] - 11/01/2024 11:40 AM EST ----- ------- Name: Naomi Chavira ? Age/Sex: 44/F ? : 1980 Unit#: [id number] ?? Attend Dr: Marah Das CNM ?Re10/18/24 ?Status: DEP REF ? Location: HO.LNP ?Disch: ? ----- ------- SPEC : [id number] ? RECD: 10/19/24 ? STATUS: ??SOUT ? REQ NUM: [id number] ? AUNDREA: 10/18/24-1000 ? SUBM DR: Marah Das CNM ? ENTERED: ??10/19/24 ?SP TYPE: Pap Smr ?OTHR DR: Naomi Alfonso MD ? ORDERED: ??Pap Smear ?Addendum Addendum ??1 ?Entered: 11/01/24 HPV High Risk: ??Positive HPV Genotyping 16: ??Negative HPV Genotyping 18: ??Negative Addendum Signed (signature on file) SHEA Parks (ASCP) 11/01/24 1140 ? ----- ------- ? Interpretation ?? Satisfactory for evaluation. ?? Negative for intraepithelial lesion or malignancy. ? HPV High Risk: ??Negative ? HPV Genotyping 16: ??Negative ?? HPV Genotyping 18: ??Negative ?Clinical Information LMP: Unknown date Previous PAP test: 3 years ago, WNL Other history: Abnormal uterine bleeding ? Material Received ?? Cervix Copies To: ?? Naomi Alfonso MD ?? [facility] ?? [address] ?? [place] [address] ?? [phone] ? CONTINUED ON NEXT PAGE ----- ------- Name: Naomi Chavira ? Age/Sex: 44/F ? : 1980 Unit#: [id number] ?? Attend Dr: Marah Das CNM ?Re10/18/24 ?Status: DEP REF ? Location: HO.LNP ?Disch: ? ----- ------- SPEC : [id number] ? RECD: 10/19/24-699 ? STATUS: ??SOUT ? REQ NUM: [id number] ? AUNDREA: 10/18/24-100 ? SUBM DR: Marah Das CNM ? ENTERED: ??10/19/24-709 ?SP TYPE: Pap Smr ?OTHR DR: Naomi Alfonso MD ? ORDERED: ??Pap Smear ? Copies To: ??(Continued) ?? Marah Das CNM ?? [facility] ?? [address] ?? [place] [address] ?? [phone] ----- ------- Signed (signature on file) Tiffanie Bonilla CT ([facility]) 10/28/24 5610 ? (signature on file) Parker Roper CT ([facility]) 11/01/24 0950 ? ----- ------- ? END OF REPORT ? Generic External Data Provider LAB CYTOLOGY ORDE RABLES Final Result Performing Organization Address [facility] de Phone Number [facility] [address] [place] [address] [phone] * Bacterial Vaginosis (10/18/2024 8:56 AM EST) [facility] TRICHOMONAS VAGINALIS DETECTION BY PCR NOT DETECTED Not Detect [facility] BACTERIAL VAGINOSIS DETECTION BY PCR NEGATIVE Negative [facility] Comment:The BV organism targ ets of [...] DETECTION BY PCR NOT DETECTED Not Detect [facility] Brenda glab krusei PCR NOT DETECTED Not Detect [facility] 10/18/2024 8:56 AM EST 10/18/2024 3:28 PM EST Generic External Data Provider LAB MICROBIOLOGY - GENERAL ORDERABLES Final Result Performing Organization Address [facility] de Phone Number [facility] [address] [place] [address] [phone] * Chlamydia/N. Gonorrhoeae RNA, TMA, Urogenitial (10/18/2024 8:56 AM EST) Pathologist [facility] CT PCR NOT DETECTED Not Detect. [facility] Comment:A not detected test result does [...] psychologicalconsequences. NG PCR NOT DETECTED Not Detect. [facility] Comment:A not detected test result does [...] AM EST 10/18/2024 3:28 PM EST Narrative [facility] - 10/19/2024 2:05 AM EST Vaginal us Generic External Data Provider LAB MICROBIOLOGY - GENERAL ORDERABLES Final Result [facility] [address] [place] [phone] * BI Mammogram Screening Tomosynthesis Bilateral (08/17/2024 9:00 AM EST) Anatomical Region Laterality Modality Breast Bilateral Mammography 08/17/2024 9:00 AM EST Narrative 08/23/2024 10:19 AM EST ? [place] [facility] ? [address] ?[place], [place] [address] ? Mammography Report ? Signed with Addenda ? Patient: Ellen Gaston,Naomi Alberts ? MR#: [id number] ? : 1980 ?Acct:[id number] ? Age/Sex: 44 / F ?ADM Date: 08/17/24 ? Loc: HO.MAMMO ? Attending Dr: Naomi Bocanegra MD ? Ordering Physician: Naomi Alfonso MD ?Results: ?? 1Negative ? Date of Service: 08/17/24 ?Follow Up: 1 Year From Orig ?? inal Mammogram ? Procedure(s): MM tomosynthesis screening BI ?? Accession Number(s): [id number] ? cc: Naomi Alfonso MD ?ADDENDUM ? [...] DD/ 0900 ? TD/TT: 08/17/24 0930 ? Industrial [employer] Fitter: ? Procedure Note Katey, Matty - 08/29/2024 [facility] [address] [place] [address] Mammography Report Signed with Addenda Patient: Naomi Chavira MR#: [id number] : 1980Acct:[id number] Age/Sex: 44 / FADM Date: 08/17/24 Loc: HO.MAMMO Attending Dr: Naomi Bocanegra MD Ordering Physician: Naomi Alfonso MDResults: 1Negative Date of Service: 08/17/24Follow Up: 1 Year From Orig ina Mammogram Procedure(s): MM tomosynthesis screening BI Accession Number(s): [id number] cc: Naomi Alfonso MD ADDENDUM ADDENDUM #1 [...] by: Ena Downing DO 08/29/2024 02:20 PM [facility] Addendum Dictated By: Ena Downing DO Addendum [...] Ena Downing DO 08/23/2024 10:11 AM EST Dictated By: Ena Downing DO Signed By: <Electronically signed by Ena Downing DO in OV> 08/23/24 1011 DD/ 0900 TD/TT: 08/17/24 0930 Industrial [employer] Fitter: Naomi Bocanegra MD IMG BI PROCEDURES Bobby lily Result - Final * Hepatitis C Antibody with Reflex to HCV, RNA, Quantitative, Real-Time PCR (12/08/2023 8:01 AM EDT) Hepatitis C Antibody Nonreactive Nonreactive [facility] Comment:Antibodies to HCV no t detected; does not exclude early acuteHCV infection. Blood Venous blood specimen / Unknown 12/08/2023 8:01 AM EDT 12/08/2023 11:17 AM EDT Naomi Bocanegra MD LAB BLOOD ORDERABLES Final Result [facility] [address] [place] [phone] * HIV-1/2 Antigen and Antibodies, Fourth Generation, with Reflexes (12/08/2023 8:01 AM EDT) HIV AB/AG Nonreactive Nonreactive [facility] Comment:HIV-1 p24 Ag and/or HIV-1/HIV-2 Ab not detected.A test result that is nonreactive does not exclude thepossibility of exposure to or infection with HIV-1 and/orHIV-2. Nonreactive results in this assay for individualswith prior exposure to HIV-1 and/or HIV-2 may be due toantigen and antibody levels that are below the limit ofdetection of this assay.The [employer] HIV Ag/Ab Combo assay result andsupplemental assay results should be interpreted inconjunction with the patient's clinical presentation,history and other laboratory results. If the results areinconsistent with clinical evidence, additional testing issuggested to confirm the result. Blood Venous blood specimen / Unknown 12/08/2023 8:01 AM EDT 12/08/2023 11:17 AM EDT us Naomi Bocanegra MD LAB BLOOD ORDERABLES Final Result [facility] [address] [place] [phone] * (ABNORMAL) Lipid Panel, Standard (12/08/2023 8:01 AM EDT) Triglycerides 144 <150 mg/dL [facility] Comment:Desirable Triglyceri de: less than 150 mg/dLBorderline High Triglyceride 150-199 mg/dLHigh Triglyceride: 200-499 mg/dLVery High Triglyceride: greater than or equal to 5OO mg/dL Cholesterol 179 <200 mg/dL [facility] Comment:Desirable Cholestero l: less than 200 mg/dLBorderline High Cholesterol: 200-239 mg/dLHigh Cholesterol: greater than 239 mg/dL LDL Cholesterol Calculated 117(H) <100 mg/dL [facility] Comment:Desirable LDL: less than 100 mg/dLNear Optimal/Above Optimal LDL: 110- 129 mg/dLBorderline High LDL: 130-159 mg/dLHigh LDL: 160-189 mg/dLVery High LDL: greater than or equal to 190 mg/dL HDL Cholesterol 34(L) >40 mg/dL [facility] Comment:Desirable HDL: great er than 40 mg/dL Note: This HDL assay may give artificially low results in patients with liver disease. Blood Venous blood specimen / Unknown 12/08/2023 8:01 AM EDT 12/08/2023 11:17 AM EDT us Naomi Bocanegra MD LAB BLOOD ORDERABLES Final Result [facility] [address] [place] [address] [phone] from Last 3 Months or Most Recently Relevant to Health Maintenance Insurance [facility] C3 HSN PARTIAL Care Teams [employer] Agent Relationship Specialty Start Date End Date Naomi Alfonso MD [address] [place] [phone] PCP - General Family Medicine 06/19/18
--- OUTSIDE RECORDS SUMMARY | 2024-12-26 07:37 | XMS_ITS | Encounter Summary ---
Author Organization [employer] Address [address] [facility] [address] [place] [address] Care Team Providers Care Director Learning Services Name Role Phone Naomi Alfonso MD Primary Care Provide r Encounter Details Date Type Department Care Team ([facility] st Contact Info) Description 07/08/2023 Abstract [facility] MEDICINE [address] [place], [place] [phone] Naomi Alfonso MD [address] [place], [place] [phone] Social History Tobacco Use Types Packs/Day Years [...] Description 01/21/2025 9:15 AM EDT Office Visit [facility] MEDICINE [address] [place], [place] [phone] Naomi Alfonso MD [address] [place] [address] documented as of this encounter Visit Diagnoses Not on filedocumented in this encounter Care Teams Director Learning Services Relationship Specialty Start Date End Date Naomi Alfonso MD [address] [place] [address] [phone] PCP - General Family Medicine 06/19/18 documented as of this encounter
--- OUTSIDE RECORDS SUMMARY | 2024-12-26 07:37 | XMS_ITS | Encounter Summary ---
Author Organization [employer] Address [address] [facility] [address] [place] [address] Care Team Providers Care Naval Engineer Name Role Phone Naomi Alfonso MD Primary Care Provide r Encounter Details Date Type Department Care Team (Late st Contact Info) Description 12/21/2024 Orders Only [facility] External Provider, [facility] Social History Tobacco Use Types Packs/Day Years [...] Description 01/21/2025 9:15 AM EDT Office Visit [facility] MED[facility]INE [address] [place] [id number] Naomi Alfonso MD 230 [place] [place] [id number] documented as of this encounter Procedures Procedure Name Priority Date/Time Associated Diagnosis Comments US PELVIS TRANSVAGINAL Routine 12/22/2024 11:22 AM EDT documented in this encounter Results * US Pelvis Transvaginal (12/22/2024 11:22 AM EDT) Anatomical Region Laterality Modality Pelvis Ultrasound 12/22/2024 11:2 2 AM EDT Narrative 12/22/2024 11:24 AM EDT ? [facility] ?[address] ?[place] [address] ? Ultrasound Report ? Signed ? Patient: Naomi Chavira ? MR#: [id number] ? : 1980 ?Acct:[id number] ? Age/Sex: 44 / F ?ADM Date: 12/21/24 ? Loc: HO.US ? Attending Dr: Marah Das CNM ? Ordering Physician: Marah Das CNBianca ?? Date of Service: 12/21/24 ?? Procedure(s): US pelvic and transvaginal ?? Accession Number(s): [id number] ? cc: Naomi Alfonso MD; Marah Das [...] DD/ 1122 ? TD/TT: 12/22/24 1122 ? Health Communications Specialist: ? Procedure Note Matty Del Toro - 12/22/[address] [address] Ultrasound Report Signed Patient: Naomi Chavira MR#: [id number] : 1980Acct:[id number] Age/Sex: 44 / FADM Date: 12/21/24 Loc: HO.US Attending Dr: Marah Das CNM Ordering Physician: Marah Das CNM Date of Service: 12/21/24 Procedure(s): US pelvic and transvaginal Accession Number(s): [id number] cc: Naomi Alfonso MD; Marah Das CNM [...] 12/22/24 1123 DD/ 1122 TD/TT: 12/22/24 1122 Health Communications Specialist: [facility] External Provider IMG US PROCEDURES Final Result documented in this encounter Visit Diagnoses Not on filedocumented in this encounter Care Teams Naval Engineer Relationship Specialty Start Date End Date Naomi Alfonso MD [address] [place] [address] PCP - General Family Medicine 06/19/18 documented as of this encounter
--- OUTSIDE RECORDS SUMMARY | 2024-12-26 07:37 | XMS_ITS | Encounter Summary ---
Author Organization [employer] Address [address] [facility] 7t [place] [address] Care Team Providers Care Validation Architect Name Role Phone Naomi Alfonso MD Primary Care Provide r Encounter Details Date Type Department Care Team ([facility] Contact Info) Description 02/08/2023 Telephone [facility] CHC MED & PEDS [address] [place], [place] [phone] Naomi Alfonso MD [address] [place] [address] Social History Tobacco Use Types Packs/Day Years [...] Description 01/21/2025 9:15 AM EDT Office Visit [facility] MEDICINE [address] [place], [place] [phone] Naomi Alfonso MD [address] [place], [place] [phone] documented as of this encounter Visit Diagnoses Not on filedocumented in this encounter Care Teams Validation Architect Relationship Specialty Start Date End Date Naomi Alfonso MD [address] [place] [phone] PCP - General Family Medicine 06/19/18 documented as of this encounter
--- OUTSIDE RECORDS SUMMARY | 2024-12-26 07:37 | XMS_ITS | Clinical Summary ---
Author Organization [facility] Address [address] [facility] [address] [place] [address] Phone Care Team Providers Care Microcomputer Technician Name Role Phone Unavailable Primary Care [...] age to complete this topic [place]
--- OUTSIDE RECORDS SUMMARY | 2024-12-26 07:37 | XMS_ITS | Encounter Summary ---
Author Organization [employer] Address [address] [facility] [address] [place] [address] Care Team Providers Care Edger Machine Helper Name Role Phone Naomi Alfonso MD Primary Care Provide r Encounter Details Date Type Department Care Team ([facility] st Contact Info) Description 07/06/2023 Abstract [facility] MEDICINE [address] [place], [place] [phone] Naomi Alfonso MD [address] [place], [place] [phone] Social History Tobacco Use Types Packs/Day Years [...] Office Visit [facility] MEDICINE [address] [place], [place] [phone] Naomi Alfonso MD [address] [place] [address] documented as of this encounter Visit Diagnoses Not on filedocumented in this encounter Care Teams Edger Machine Helper Relationship Specialty Start Date End Date Naomi Alfonso MD [address] [place] [address] [phone] PCP - General Family Medicine 06/19/18 documented as of this encounter
== END 2024-12-26 10:09 | disposition home or self-care (01) ==
PROVIDERS: PCP Internal Medicine; Visit Provider Advanced Practice Midwife
DX: N83.201 Unspecified ovarian cyst, right side (principal); D21.9 Benign neoplasm of connective and other soft tissue, unspecified; N84.0 Polyp of corpus uteri; R87.618 Other abnormal cytological findings on specimens from cervix uteri
CPT/HCPCS: 99213

== ENCOUNTER → 2024-12-26 07:35 | Outpatient (BNVA) | payer MEDICAID, SELFPAY | PROVIDERS: PCP Internal Medicine; Visit Provider Advanced Practice Midwife | DX: N83.201 Unspecified ovarian cyst, right side (principal); N84.0 Polyp of corpus uteri; R87.618 Other abnormal cytological findings on specimens from cervix uteri; D21.9 Benign neoplasm of connective and other soft tissue, unspecified | CPT/HCPCS: 99212 ==

== ENCOUNTER 2025-01-14 14:41 | Outpatient (AMB) | payer MEDICAID, SELFPAY ==
--- NOTE | 2025-01-14 14:50 | A.OFFVIS_ITS ---
Intake Visit Reasons: Hysteroscopy consult Allergies No Known Allergies Allergy (Verified 01/14/25 14:52) HPI Comments Details: Presenting referred from Marah Das regarding abnormal uterine bleeding and possible endometrial polyp by ultrasound. The following workup was done so far: H&H =11.7/36.3 TSH, GC/CT negative 09/04 mammogram showed BI-RADS 1 Co testing was negative/HPV high-risk positive, HPV 16/18 negative, no previous history of abnormal co testing Pelvic ultrasound showed the following: Anteverted uterus, prominent in size heterogeneous in echotexture measuring 9.0 x 5.0 x 6.6 cm. Nabothian cysts. Thickened endometrium measuring 17 mm in thickness. Uterine fibroids as follows: 1. Right fundal intramural 2.2 x 2.2 x 2.5 cm 2. Fundal subserosal measuring 1.5 x 1.6 x 1.8 The right ovary measures, 2.3 x 1.4 x 1.6 cm. Isoechoic lesion possible corpus luteum or dense hemorrhagic cyst measuring 1.3 x 1.2 x 1.3 cm. The left ovary measures, 2.4 x 1.8 x 2.8 cm. Normal sonographic appearance left ovary. No adnexal masses or fluid collections. No free fluid [facility] Medical History (Updated 01/14/25 @ 14:55 by Enrico Manriquez MD) Abnormal Pap smear of cervix Fibroid Ovarian cyst Ectopic Abnormal uterine bleeding (AUB) Asthma Surgical History Tubal ligation status History of carpal tunnel surgery of left wrist Family History Father No problems noted. Mother Stroke Social History Alcohol intake: never Patient Tobacco Use Status: Never used Tobacco Current occupational status: unemployed Current occupation: right handed Assessment & Plan Assessment & Plan (1) Abnormal uterine bleeding (AUB): Code(s): N93.9 - Abnormal uterine and vaginal bleeding, unspecified Category: Medical Plan: Discussed with the patient the finding on ultrasound showing possible endometrial polyp and the indication for endometrial sampling to rule out endometrial pathology including hyperplasia or malignancy or a polyp. Recommended to the patient that the next step is an endometrial sampling via hysteroscopy D&C possible polypectomy versus endometrial biopsy to r/o endometrial pathology including hyperplasia or cancer. All the pros and cons risks and benefits of each approach were discussed with the patient, endometrial biopsy being less invasive, office procedure with less sensitivity and inability diagnose a polyp and removal versus hysteroscopy done under anesthesia more invasive more sensitive to endometrial cancer and possibility of diagnosing and endometrial polyp with the possibility of polypectomy. All questions were answered pt verbalized understanding and decided to proceed with hysteroscopy poss polypectomy/myomectomy Discussed with the patient the procedure , all benefits and risks including but not limited to inability to complete the procedure , insufficient endometrial tissue for a complete evaluation of the endometrial cavity , bleeding, infectio n, possible need for blood transfusion with all its risk ( HIV,syphilis, Hepatitis, anaphylaxis shock, others..), injury to bladder, rectum, possible need for laparoscopy/laparotomy or hysterectomy. The patient verbalized understanding and signed the consent. Instructions given the patient to stay NPO after midnight the day prior to the procedure and to take only the specific medication (s) discussed the morning of the surgical procedure and to schedule a 2 week postoperative appointment (2) Ovarian cyst: Code(s): N83.209 - Unspecified ovarian cyst, unspecified side Category: Medical Qualifiers: Laterality: right Qualified Code(s): N83.201 - Unspecified ovarian cyst, right side Plan: Discussed with the patient the complex ovarian cyst by ultrasound. Discussed with the patient the Ultrasound findings, the main limitation of transvaginal ultrasonography alone as a diagnostic tool to distinguish benign from malignant masses relates to its lack of specificity and low positive predictive value for cancer. The differential diagnosis discussed with the patient includes the following but not limited to: benign and malignant gynecological and non-gynecological causes. Laboratory evaluation include UPT and GC/CT , serum tumor marker CA 125 . Discussed with the patient options of treatment including laparoscopy ovarian cystectomy/oophorectomy vs. expectant management with repeat US in repeating pelvic US in 6-12 weeks from previous US. If the ovarian complex cyst is persistent larger and / or more complex looking, will refer to gynecologic Oncology. All pros, cons, risks and benefits of each approach were discussed with the patient including but not limited to a delay in the diagnosis and treatment of ovarian cancer affecting the prognosis; The patient decided to go ahead with expectant management. Ultrasound for follow-up appointment scheduled in 03/04 with the patient is aware. All questions were answered & the patient verbalized understanding and agreed with the plan. (3) HPV in female: Comment: Negative Pap Code(s): B97.7 - Papillomavirus as the cause of diseases classified elsewhere Category: Medical Plan: Per ASCCP guidelines, recommended co testing in 1 year, the patient has has an appointment scheduled on 10/22/2022, the patient is aware (4) Uterine myoma: Code(s): D25.9 - Leiomyoma of uterus, unspecified Category: Medical Plan: Discussed with the patient the findings on pelvic ultrasound & the risk of myosarcoma; in addition reviewed with the patient that malignancy and pre malignancy cannot be ruled out without hysterectomy for pathological evaluation ; furthermore, explained to the patient the limitation of pelvic ultrasound and endometrial biopsy in the setting. Discussed with the patient the options of treatment including expectant management versus hysterectomy; the pros and cons, risks benefits of each approach were discussed with the patient including the fact that in cases of myosarcoma, surgical treatment can lead to early diagnosis and positively affects the prognosis; after further discussion, the patient decided to proceed with expectant management. Will repeat pelvic ultrasound periodically. Instructions given to patient to call in case any of the following occurs: pressure symptoms, abnormal uterine bleeding, pelvic pain; pelvic ultrasound schedule with a follow-up appointment . All questions answered, the patient verbalized understanding and agreed with the plan . Coding Level of Care Code Est Pt Level 3 (48411) Diagnoses Abnormal uterine bleeding (AUB) N93.9 Cyst of right ovary N83.201 Laterality: right HPV in female B97.7 Uterine myoma D25.9
--- OUTSIDE RECORDS SUMMARY | 2025-01-14 16:14 | XMS_ITS | Encounter Summary ---
Author Organization [employer] Address [address] [facility] [address]t [place] [address] Care Team Providers Care Stretcher Helper Name Role Phone Naomi Alfonso MD Primary Care Provide r Encounter Details Date Type Department Care Team ([facility] Contact Info) Description 02/08/2023 Telephone [facility] CHC MED & PEDS [address] [place], [place] [phone] Naomi Alfonso MD [address] [place] [address] Social History Tobacco Use Types Packs/Day Years [...] Description 01/21/2025 9:15 AM EDT Office Visit [facility] MEDICINE [address] [place], [place] [phone] Naomi Alfonso MD [address] [place], [place] [phone] documented as of this encounter Visit Diagnoses Not on filedocumented in this encounter Care Teams Stretcher Helper Relationship Specialty Start Date End Date Naomi Alfonso MD [address] [place] [phone] PCP - General Family Medicine 06/19/18 documented as of this encounter
--- OUTSIDE RECORDS SUMMARY | 2025-01-14 16:14 | XMS_ITS | Encounter Summary ---
Author Organization [employer] Address [address] [facility] [address] [place] [address] Care Team Providers Care Farm Tractor Mechanic Name Role Phone Naomi Alfonso MD Primary Care Provide r Encounter Details Date Type Department Care Team ([facility] st Contact Info) Description 07/08/[address] [facility] MEDICINE [address] [place], [place] [phone] Naomi Alfonso MD [address] [place], [place] [phone] Social History Tobacco Use Types Packs/Day Years [...] 9:15 AM EDT Office Visit [facility] MEDICINE [address] [place], [place] [phone] Naomi Alfonso MD [address] [place] [address] documented as of this encounter Visit Diagnoses Not on filedocumented in this encounter Care Teams Farm Tractor Mechanic Relationship Specialty Start Date End Date Naomi Alfonso MD [address] [place] [address] [phone] PCP - General Family Medicine 06/19/18 documented as of this encounter
--- OUTSIDE RECORDS SUMMARY | 2025-01-14 16:14 | XMS_ITS | Clinical Summary ---
Author Organization [employer] Address [address] [facility] [address] [place] [address] Care Team Providers Care Artificial Breeding Technician Name Role Phone Naomi Alfonso MD [...] Department Care Team Description 12/21/2024 Orders Only [facility] External Provider, [facility] 11/23/2024 [facility] Risk Score [facility] () Department [address] [place] [phone] Provider, Population Health Generic 11/16/2024 Patient Outreach [facility] [address] [place] [address] Naomi Alfonso MD Pre-visit Planning ((Unable to reach for PVP screening, LVM)) 10/30/2024 Telephone [facility] [address] [place] [address] Naomi Alfonso MD 10/18/2024 Orders Only GENERIC EXTERNAL DATA DEPARTMENT Provider, Generic External Data from Last 3 Months Immunizations Name Administration [...] Description 01/21/2025 9:15 AM EDT Office Visit [facility] [address] [place] [address] Naomi Alfonso MD [address] [place] [phone] Health Maintenance Due Date Last Done Comments [...] EDT Narrative 12/22/2024 11:24 AM EDT ? [facility] ?[address] ?[place] [address] ? Ultrasound Report ? Signed ? Patient: Ellen Gaston,Naomi Alberts ? MR#: [id number] ? : 1980 ?Acct:[id number] ? Age/Sex: 44 / F ?ADM Date: 12/21/24 ? Loc: HO.US ? Attending Dr: Marah Das CNM ? Ordering Physician: Marah Das CNM ?? Date of Service: 12/21/24 ?? Procedure(s): US pelvic and transvaginal ?? Accession Number(s): [id number] ? cc: Naomi Alfonso MD; Marah Das [...] by Emerson Del Real MD in OV> ?12/22/241122 ? DD/ 1122 ? TD/TT: 12/22/24 1122 ? Customer Acquisition Specialist: ? Procedure Note Donotarmininterpreter, Image - 12/22/[address] [address] Ultrasound Report Signed Patient: Naomi Chavira MR#: [id number] : 1980Acct:[id number] Age/Sex: 44 / FADM Date: 12/21/24 Loc: HO.US Attending Dr: Marah Das CNM Ordering Physician: Marah Das CNM Date of Service: 12/21/24 Procedure(s): US pelvic and transvaginal Accession Number(s): [id number] cc: Naomi Alfonso MD; Marah Das CNM [...] 12/22/24 1123 DD/ 1122 TD/TT: 12/22/24 1122 Customer Acquisition Specialist: [facility] External Provider IMG US PROCEDURES Final Result * (ABNORMAL) HPV DNA, Low/High Risk (10/18/2024 10:01 AM EST) HPV High Risk Positive(A) Negative [facility] HPV Genotype 16 Negative Negative [facility] HPV Genotype 18 Negative Negative [facility] Comment:HPV testing performe d at [facility] (CLIA#[id number]), [address] [place] [address].Testing for HPV was performed using the Ignacio [...] 1 AM EST 10/19/2024 10:15 AM EST Generic External Data Provider LAB BLOOD ORDERAB LES Final Result [facility] [address] [place] [phone] * (ABNORMAL) CBC (10/18/2024 10:01 AM EST) White Blood Count 7.2 4.8 - 10.8 X10*3/uL [facility] Red Blood Count 4.38 4.20 - 5.50 X10*6/uL [facility] Hemoglobin 11.7(L) 12.0 - 16.0 g/dl [facility] Hematocrit 36.3(L) 37.0 - 47.0 % [facility] Mean Corpuscular Volume 82.9 80.0 - 98.0 fL [facility] Mean Corpuscular Hemoglobin 26.7(L) 27.0 - 33.0 pg [facility] Mean Corpuscular HGB Conc 32.2 31.0 - 35.0 g/dl [facility] Red Cell Distribution Width 13.2 11.0 - 16.0 % [facility] Platelet Count 258 160 - 400 X10*3/uL [facility] Mean Platelet Volume 10.8 9.4 - 12.3 fL [facility] NRBC Pct Auto 0.0 0.0 - 0.2 /100WBC [facility] NRBC Abs Auto 0.000 0.0 - 0.012 X10*3/uL [facility] 10/18/2024 10:0 1 AM EST 10/18/2024 10:01 AM EST us Generic External Data Provider LAB BLOOD ORDERAB LES Final Result [facility] [address] [place] [phone] * TSH (10/18/2024 10:01 AM EST) Thyroid Stimulating Hormone 1.76 0.32 - 4.0 uIU/mL [facility] Comment:TSH 3rd Generation ( [facility]) 10/18/2024 10:0 1 AM EST 10/18/2024 10:01 AM EST us Generic External Data Provider LAB BLOOD ORDERAB LES Final Result [facility] [address] [place] [phone] * Pap Smear (10/18/2024 10:01 AM EST) 10/18/2024 10:0 1 AM EST 10/19/2024 7:00 AM EST Narrative [facility] - 11/01/2024 11:40 AM EST ----- ------- Name: Naomi Chavira ? Age/Sex: 44/F ? : 1980 Unit#: [id number] ?? Attend Dr: Marah Das CNM ?Re10/18/24 ?Status: DEP REF ? Location: HO.LNP ?Disch: ? ----- ------- SPEC : [id number] ? RECD: 10/19/24-699 ? STATUS: ??SOUT ? REQ NUM: [id number] ? AUNDREA: 10/18/24-100 ? SUBM DR: Marah [...] Copies To: ?? Naomi Alfonso MD ?? [facility] ?? [address] ?? [place] [address] ?? [phone] ? CONTINUED ON NEXT PAGE ----- ------- Name: Naomi Chavira ? Age/Sex: 44/F ? : 1980 Unit#: [id number] ?? Attend Dr: Marah Das CNM ?Re10/18/24 ?Status: DEP REF ? Location: HO.LNP ?Disch: ? ----- ------- SPEC : [id number] ? RECD: 10/19/24-699 ? STATUS: ??SOUT ? REQ NUM: [id number] ? AUNDREA: 10/18/24-1001 ? SUBM DR: Marah Das CNM ? ENTERED: ??10/19/24-709 ?SP TYPE: Pap Smr ?OTHR DR: Naomi Alfonso MD ? ORDERED: ??Pap Smear ? Copies To: ??(Continued) ?? Marah Das CNM ?? [facility] ?? [address] ?? [place] [address] ?? [phone] ----- ------- Signed (signature on file) Tiffanie Bonilla, [place] ([facility]) 10/28/24 1561 ? (signature on file) Parker Roper, [place] ([facility]) 11/01/24 8350 ? ----- ------- ? END OF REPORT ? Generic External Data Provider LAB CYTOLOGY ORDE RABLES Final Result Performing Organization Address [facility] de Phone Number [facility] [address] [place] [address] [phone] * Bacterial Vaginosis (10/18/2024 8:56 AM EST) TRICHOMONAS VAGINALIS DETECTION BY PCR NOT DETECTED Not Detect [facility] BACTERIAL VAGINOSIS DETECTION BY PCR NEGATIVE Negative [facility] Comment:The BV organism targ ets [...] DETECTION BY PCR NOT DETECTED Not Detect [facility] Brenda glab krusei PCR NOT DETECTED Not Detect [facility] 10/18/2024 8:56 AM EST 10/18/2024 3:28 PM EST Generic External Data Provider LAB MICROBIOLOGY - GENERAL ORDERABLES Final Result Performing Organization Address [facility] de Phone Number [facility] [address] [place] [address] [phone] * Chlamydia/N. Gonorrhoeae RNA, TMA, Urogenitial (10/18/2024 8:56 AM EST) CT PCR NOT DETECTED Not Detect. [facility] Comment:A not detected test result [...] psychologicalconsequences. NG PCR NOT DETECTED Not Detect. [facility] Comment:A not detected test result [...] AM EST 10/18/2024 3:28 PM EST Narrative [facility] - 10/19/2024 2:05 AM EST Vaginal us Generic External Data Provider LAB MICROBIOLOGY - GENERAL ORDERABLES Final Result [facility] [address] [place] [phone] * BI Mammogram Screening Tomosynthesis Bilateral (08/17/2024 9:00 AM EST) Anatomical Region Laterality Modality Breast Bilateral Mammography 08/17/2024 9:00 AM EST Narrative 08/23/2024 10:19 AM EST ? [place] [facility] ? [address] ?[place] [address] ? Mammography Report ? Signed with Addenda ? Patient: Ellen Gaston,Naomi Alberts ? MR#: [id number] ? : 1980 ?Acct:[id number] ? Age/Sex: 44 / F ?ADM Date: 08/17/24 ? Loc: HO.MAMMO ? Attending Dr: Naomi Bocanegra MD ? Ordering Physician: Naomi Alfonso MD ?Results: ?? 1Negative ? Date of Service: 08/17/24 ?Follow Up: 1 Year From Orig ?? inal Mammogram ? Procedure(s): MM tomosynthesis screening BI ?? Accession Number(s): [id number] ? cc: Naomi Alfonso MD ?ADDENDUM ? [...] ? Signed By: ?<Electronically signed by Ena Downing DO in OV> ? 08/23/24 1011 ? DD/ 0900 ? TD/TT: 08/17/24 0930 ? Customer Acquisition Specialist: ? Procedure Note Katey, Image - 08/29/2024 [facility] [address] [place] [address] Dr. [place], [place] [address] Mammography Report Signed with [place] Patient: Naomi Chavira MR#: [id number] : 1980Acct:[id number] Age/Sex: 44 / FADM Date: 08/17/24 Loc: HO.[place]AM[place] Attending Dr: Naomi Bocanegra MD Ordering Physician: Naomi Alfonso MDResults: 1Negative Date of Service: 08/17/24Follow Up: 1 Year From Orig ina Mammogram Procedure(s): MM tomosynthesis screening BI Accession Number(s): [id number] cc: Naomi Alfonso MD ADDENDUM ADDENDUM #1 [...] Ena Downing DO 08/29/2024 02:20 PM EST Workstation: [email or web address] Addendum Dictated By: Ena Downing DO Addendum [...] 08/23/24 1011 DD/ 0900 TD/TT: 08/17/24 0930 Customer Acquisition Specialist: Naomi Bocanegra MD IMG BI PROCEDURES Bobby lily Result - Final * Hepatitis C Antibody with Reflex to HCV, RNA, Quantitative, Real-Time PCR (12/08/2023 8:01 AM EDT) Hepatitis C Antibody Nonreactive Nonreactive [facility] Comment:Antibodies to HCV no t detected; does not exclude early acuteHCV infection. Blood Venous blood specimen / Unknown 12/08/2023 8:01 AM EDT 12/08/2023 11:17 AM EDT Naomi Bocanegra MD LAB BLOOD ORDERABLES Final Result [facility] [address] [place] [address] [phone] * HIV-1/2 Antigen and Antibodies, Fourth Generation, with Reflexes (12/08/2023 8:01 AM EDT) HIV AB/AG Nonreactive Nonreactive [facility] Comment:HIV-1 p24 Ag and/or HIV-1/HIV-2 Ab not detected.A test result that is nonreactive does not exclude thepossibility of exposure to or infection with HIV-1 and/orHIV-2. Nonreactive results in this assay for individualswith prior exposure to HIV-1 and/or HIV-2 may be due toantigen and antibody levels that are below the limit ofdetection of this assay.[employer] HIV Ag/Ab Combo assay result andsupplemental assay results should be interpreted inconjunction with the patient's clinical presentation,history and other laboratory results. If the results areinconsistent with clinical evidence, additional testing issuggested to confirm the result. Blood Venous blood specimen / Unknown 12/08/2023 8:01 AM EDT 12/08/2023 11:17 AM EDT us Naomi Bocanegra MD LAB BLOOD ORDERABLES Final Result Performing Organization Address [facility]/ZIP Co de Phone Number [facility] [address] [place] [phone] * (ABNORMAL) Lipid Panel, Standard (12/08/2023 8:01 AM EDT) Triglycerides 144 <150 mg/dL [facility] Comment:Desirable Triglyceri de: less than 150 mg/dLBorderline High Triglyceride 150-199 mg/dLHigh Triglyceride: 200-499 mg/dLVery High Triglyceride: greater than or equal to 5OO mg/dL Cholesterol 179 <200 mg/dL [facility] Comment:Desirable Cholestero l: less than 200 mg/dLBorderline High Cholesterol: 200-239 mg/dLHigh Cholesterol: greater than 239 mg/dL LDL Cholesterol Calculated 117(H) <100 mg/dL [facility] Comment:Desirable LDL: less than 100 mg/dLNear Optimal/Above Optimal LDL: 110- 129 mg/dLBorderline High LDL: 130-159 mg/dLHigh LDL: 160-189 mg/dLVery High LDL: greater than or equal to 190 mg/dL HDL Cholesterol 34(L) >40 mg/dL [facility] Comment:Desirable HDL: great er than 40 mg/dL Note: This HDL assay may give artificially low results in patients with liver disease. Blood Venous blood specimen / Unknown 12/08/2023 8:01 AM EDT 12/08/2023 11:17 AM EDT us Naomi Bocanegra MD LAB BLOOD ORDERABLES Final Result Performing Organization Address City/[facility]/ZIP Co de Phone Number [facility] [address] [place] [phone] from Last 3 Months or Most Recently Relevant to Health Maintenance Insurance [facility] C[facility] PART[facility] Care Teams Artificial Breeding Technician Relationship Specialty Start Date End Date Naomi Alfonso MD [address] [place] [address] PCP - General Family Medicine 06/19/18
--- OUTSIDE RECORDS SUMMARY | 2025-01-14 16:14 | XMS_ITS | Encounter Summary ---
Author Organization [employer] Address [address] [place] [address] Care Team Providers Care Manager Agricultural Name Role Phone Naomi Alfonso MD Primary Care Provide r Encounter Details Date Type Department Care Team ([facility] st Contact Info) Description 07/06/2023 Abstract [facility] [address] [place], [place] [phone] Naomi Alfonso MD [address] [place], [place] [phone] Social History Tobacco Use Types Packs/Day Years [...] Description 01/21/2025 9:15 AM EDT Office Visit [facility] [address] [place], [place] [phone] Naomi Alfonso MD [address] [place] [address] documented as of this encounter Visit Diagnoses Not on filedocumented in this encounter Care Teams Manager Agricultural Relationship Specialty Start Date End Date Naomi Alfonso MD [address] [place] [address] [phone] PCP - General Family Medicine 06/19/18 documented as of this encounter
--- OUTSIDE RECORDS SUMMARY | 2025-01-14 16:14 | XMS_ITS | Clinical Summary ---
Author Organization [facility] Address [address] [facility] [[email or web address] [address] [place] [address] Phone Care Team Providers Care Welt Treater Name Role Phone Unavailable Primary Care Provider [...] age to complete this topic [place]
== END 2025-01-14 15:34 | disposition home or self-care (01) ==
LOC: HO.HWS 14:41
PROVIDERS: PCP Internal Medicine; Visit Provider Obstetrics & Gynecology
DX: N93.9 Abnormal uterine and vaginal bleeding, unspecified (principal); N83.201 Unspecified ovarian cyst, right side; B97.7 Papillomavirus as the cause of diseases classified elsewhere; D25.9 Leiomyoma of uterus, unspecified
CPT/HCPCS: 99213

== ENCOUNTER → 2025-01-14 14:41 | Outpatient (BNVA) | payer MEDICAID, SELFPAY | PROVIDERS: PCP Internal Medicine; Visit Provider Obstetrics & Gynecology | DX: N93.9 Abnormal uterine and vaginal bleeding, unspecified (principal); N83.201 Unspecified ovarian cyst, right side; D25.9 Leiomyoma of uterus, unspecified; B97.7 Papillomavirus as the cause of diseases classified elsewhere | CPT/HCPCS: 99212 ==

== ENCOUNTER 2025-01-18 08:59 | Day surgery (SDC) | payer MEDICAID, SELFPAY ==
--- OUTSIDE RECORDS SUMMARY | 2025-01-15 07:29 | XMS_ITS | Clinical Summary ---
Author Organization [employer] Address [address] [facility] [address] [place] [address] Care Team Providers Care Photoengraving Apprentice Name Role Phone Naomi Alfonso MD Primary [...] Department Care Team Description 12/21/2024 Orders Only [facility] External Provider, [facility] 11/23/2024 [facility] Risk Score [facility] () Department [address] [place] [phone] Provider, Population Health Generic 11/16/2024 Patient Outreach [facility] [address] [place] [address] Naomi Alfonso MD Pre-visit Planning ((Unable to reach for PVP screening, LVM)) 10/30/2024 Telephone [facility] [address] [place] [address] Naomi Alfonso MD 10/18/2024 Orders Only GENERIC [...] 01/21/2025 9:15 AM EDT Office Visit [facility] [address] [place] [address] Naomi Alfonso MD [address] [place] [address] Health Maintenance Due Date Last Done Comments [...] EDT Narrative 12/22/2024 11:24 AM EDT ? [facility] ?[address] ?[place] [address] ? Ultrasound Report ? Signed ? Patient: Ellen Gaston,Naomi Alberts ? MR#: [id number] ? : 1980 ?Acct:[id number] ? Age/Sex: 44 / F ?ADM Date: 12/21/24 ? Loc: HO.US ? Attending Dr: Marah Das CNM ? Ordering Physician: Marah Das CNM ?? Date of Service: 12/21/24 ?? Procedure(s): US pelvic and transvaginal ?? Accession Number(s): [id number] ? cc: Naomi Alfonso MD; Marah Das [...] DD/ 1122 ? TD/TT: 12/22/24 1122 ? Naphthalene Operator Helper: ? Procedure Note Donotuseinterpreter, Image - 12/22/[address] [address] Ultrasound Report Signed Patient: Naomi Chavira MR#: [id number] : 1980Acct:[id number] Age/Sex: 44 / FADM Date: 12/21/24 Loc: HO.US Attending Dr: Marah Das CNM Ordering Physician: Marah Das CNM Date of Service: 12/21/24 Procedure(s): US pelvic and transvaginal Accession Number(s): [id number] cc: aNomi Alfonso MD; Marah Das CNM CLINICAL HISTORY: [...] 12/22/24 1123 DD/ 1122 TD/TT: 12/22/24 1122 Naphthalene Operator Helper: [facility] External Provider IMG US PROCEDURES Final Result * (ABNORMAL) HPV DNA, Low/High Risk (10/18/2024 10:01 AM EST) HPV High Risk Positive(A) Negative [facility] HPV Genotype 16 Negative Negative [facility] HPV Genotype 18 Negative Negative [facility] Comment:HPV testing performe d at [facility] (CLIA#[id number]), [address] [place] [address].Testing for HPV was performed using the Ignacio [...] Provider LAB BLOOD ORDERAB LES Final Result [facility] [address] [place] [phone] * (ABNORMAL) CBC (10/18/2024 10:01 AM EST) White Blood Count 7.2 4.8 - 10.8 X10*3/uL [facility] Red Blood Count 4.38 4.20 - 5.50 X10*6/uL [facility] Hemoglobin 11.7(L) 12.0 - 16.0 g/dl [facility] Hematocrit 36.3(L) 37.0 - 47.0 % [facility] Mean Corpuscular Volume 82.9 80.0 - 98.0 fL [facility] Mean Corpuscular Hemoglobin 26.7(L) 27.0 - 33.0 pg [facility] Mean Corpuscular HGB Conc 32.2 31.0 - 35.0 g/dl [facility] Red Cell Distribution Width 13.2 11.0 - 16.0 % [facility] Platelet Count 258 160 - 400 X10*3/uL [facility] Mean Platelet Volume 10.8 9.4 - 12.3 fL [facility] NRBC Pct Auto 0.0 0.0 - 0.2 /100WBC [facility] NRBC Abs Auto 0.000 0.0 - 0.012 X10*3/uL [facility] 10/18/2024 10:0 1 AM EST 10/18/2024 10:01 AM EST us Generic External Data Provider LAB BLOOD ORDERAB LES Final Result [facility] [address] [place] [address] [phone] * TSH (10/18/2024 10:01 AM EST) Thyroid Stimulating Hormone 1.76 0.32 - 4.0 uIU/mL [facility] Comment:TSH 3rd Generation ( [facility]) 10/18/2024 10:0 1 AM EST 10/18/2024 10:01 AM EST us Generic External Data Provider LAB BLOOD ORDERAB LES Final Result [facility] [address] [place] [address] [phone] * Pap Smear (10/18/2024 10:01 AM EST) 10/18/2024 10:0 1 AM EST 10/19/2024 7:00 AM EST Narrative [facility] - 11/01/2024 11:40 AM EST ----- ------- Name: Naomi Chavira ? Age/Sex: 44/F ? : 1980 Unit#: [id number] ?? Attend Dr: Marah Das CNM ?Re10/18/24 ?Status: DEP REF ? Location: HO.LNP ?Disch: ? ----- ------- SPEC : [id number] ? RECD: 10/19/24-699 ? STATUS: ??SOUT ? REQ NUM: [id number] ? AUNDREA: 10/18/24-1001 ? SUBM DR: Marah Das CNM ? ENTERED: ??10/19/24-709 ?SP TYPE: Pap Smr ?OTHR DR: Naomi Alfonso MD ? ORDERED: ??Pap Smear ?Addendum Addendum ??1 ?Entered: 11/01/24-1139 HPV High Risk: ??Positive HPV Genotyping 16: [...] Copies To: ?? Naomi Alfonso MD ?? [facility] ?? [address] ?? [place] [address] ?? [phone] ? CONTINUED ON NEXT PAGE ----- ------- Name: Naomi Chavira ? Age/Sex: 44/F ? : 1980 Unit#: [id number] ?? Attend Dr: Marah Das CNM ?Re10/18/24 ?Status: DEP REF ? Location: HO.LNP ?Disch: ? ----- ------- SPEC : [id number] ? RECD: 10/19/24-699 ? STATUS: ??SOUT ? REQ NUM: [id number] ? AUNDREA: 10/18/24-1001 ? SUBM DR: Marah Das CNM ? ENTERED: ??10/19/24-709 ?SP TYPE: Pap Smr ?OTHR DR: Naomi Alfonso MD ? ORDERED: ??Pap Smear ? Copies To: ??(Continued) ?? Marah Das CNM ?? [facility] ?? [address] ?? [place] [address] ?? [phone] ----- ------- Signed (signature on file) Tiffanie Bonilla, [place] ([facility]) 10/28/24 1818 ? (signature on file) Parker Roper, [place] ([facility]) 11/01/24 7950 ? ----- ------- ? END OF REPORT ? Generic External Data Provider LAB CYTOLOGY ORDE RABLES Final Result Performing Organization Address [facility] de Phone Number [facility] [address] [place] [address] [phone] * Bacterial Vaginosis (10/18/2024 8:56 AM EST) TRICHOMONAS VAGINALIS DETECTION BY PCR NOT DETECTED Not Detect [facility] BACTERIAL VAGINOSIS DETECTION BY PCR NEGATIVE Negative [facility] Comment:The BV organism targ ets [...] DETECTION BY PCR NOT DETECTED Not Detect [facility] Brenda glab krusei PCR NOT DETECTED Not Detect [facility] 10/18/2024 8:56 AM EST 10/18/2024 3:28 PM EST Generic External Data Provider LAB MICROBIOLOGY - GENERAL ORDERABLES Final Result Performing Organization Address [facility] de Phone Number [facility] [address] [place] [address] [phone] * Chlamydia/N. Gonorrhoeae RNA, TMA, Urogenitial (10/18/2024 8:56 AM EST) Pathologist [facility] [place] PCR NOT DETECTED Not Detect. [facility] Comment:A not detected test result [...] psychologicalconsequences. NG PCR NOT DETECTED Not Detect. [facility] Comment:A not detected test result [...] AM EST 10/18/2024 3:28 PM EST Narrative [facility] - 10/19/2024 2:05 AM EST Vaginal us Generic External Data Provider LAB MICROBIOLOGY - GENERAL ORDERABLES Final Result [facility] [address] [place] [address] [phone] * BI Mammogram Screening Tomosynthesis Bilateral (08/17/2024 9:00 AM EST) Anatomical Region Laterality Modality Breast Bilateral Mammography 08/17/2024 9:00 AM EST Narrative 08/23/2024 10:19 AM EST ? [place] [facility] ? [address] ?[place] [address] ? Mammography Report ? Signed with Addenda ? Patient: Ellen Gaston,Naomi Alberts ? MR#: [id number] ? : 1980 ?Acct:[id number] ? Age/Sex: 44 / F ?ADM Date: 08/17/24 ? Loc: HO.MAMMO ? Attending Dr: Naomi Bocanegra MD ? Ordering Physician: Naomi Alfonso MD ?Results: ?? 1Negative ? Date of Service: 08/17/24 ?Follow Up: 1 Year From Orig ?? inal Mammogram ? Procedure(s): MM tomosynthesis screening BI ?? Accession Number(s): [id number] ? cc: Naomi Alfonso MD ?ADDENDUM ? [...] DD/ 0900 ? TD/TT: 08/17/24 0930 ? Naphthalene Operator Helper: ? Procedure Note Katey, Image - 08/29/2024 [facility] [address] [place] [address] Dr. [place], [place] [address] Mammography Report Signed with [place] Patient: Naomi Chavira MR#: [id number] : 1980Acct:[id number] Age/Sex: 44 / FADM Date: 08/17/24 Loc: MICHAEL Attending Dr: Naomi Bocanegra MD Ordering Physician: Naomi Alfonso MDResults: 1Negative Date of Service: 08/17/24Follow Up: 1 Year From Orig ina Mammogram Procedure(s): MM tomosynthesis screening BI Accession Number(s): [id number] cc: Naomi Alfonso MD ADDENDUM ADDENDUM #1 [...] Ena Downing DO 08/29/2024 02:20 PM EST Addendum Dictated By: Ena Downing DO Addendum [...] 08/23/24 1011 DD/ 0900 TD/TT: 08/17/24 0930 Naphthalene Operator Helper: Naomi Bocanegra MD IMG BI PROCEDURES Bobby lily Result - Final * Hepatitis C Antibody with Reflex to HCV, RNA, Quantitative, Real-Time PCR (12/08/2023 8:01 AM EDT) Hepatitis C Antibody Nonreactive Nonreactive [facility] Comment:Antibodies to HCV no t detected; does not exclude early acuteHCV infection. Blood Venous blood specimen / Unknown 12/08/2023 8:01 AM EDT 12/08/2023 11:17 AM EDT Naomi Bocanegra MD LAB BLOOD ORDERABLES Final Result [facility] [address] [place] [phone] * HIV-1/2 Antigen and Antibodies, Fourth Generation, with Reflexes (12/08/2023 8:01 AM EDT) HIV AB/AG Nonreactive Nonreactive [facility] Comment:HIV-1 p24 Ag and/or HIV-1/HIV-2 Ab not detected.A test result that is nonreactive does not exclude thepossibility of exposure to or infection with HIV-1 and/orHIV-2. Nonreactive results in this assay for individualswith prior exposure to HIV-1 and/or HIV-2 may be due toantigen and antibody levels that are below the limit ofdetection of this assay.The Cureeo HIV Ag/Ab Combo assay result andsupplemental assay results should be interpreted inconjunction with the patient's clinical presentation,history and other laboratory results. If the results areinconsistent with clinical evidence, additional testing issuggested to confirm the result. Blood Venous blood specimen / Unknown 12/08/2023 8:01 AM EDT 12/08/2023 11:17 AM EDT us Naomi Bocanegra MD LAB BLOOD ORDERABLES Final Result Performing Organization Address [facility]/ZIP Co de Phone Number [facility] [address] [place] [phone] * (ABNORMAL) Lipid Panel, Standard (12/08/2023 8:01 AM EDT) Triglycerides 144 <150 mg/dL [facility] Comment:Desirable Triglyceri de: less than 150 mg/dLBorderline High Triglyceride 150-199 mg/dLHigh Triglyceride: 200-499 mg/dLVery High Triglyceride: greater than or equal to 5OO mg/dL Cholesterol 179 <200 mg/dL [facility] Comment:Desirable Cholestero l: less than 200 mg/dLBorderline High Cholesterol: 200-239 mg/dLHigh Cholesterol: greater than 239 mg/dL LDL Cholesterol Calculated 117(H) <100 mg/dL [facility] Comment:Desirable LDL: less than 100 mg/dLNear Optimal/Above Optimal LDL: 110- 129 mg/dLBorderline High LDL: 130-159 mg/dLHigh LDL: 160-189 mg/dLVery High LDL: greater than or equal to 190 mg/dL HDL Cholesterol 34(L) >40 mg/dL [facility] Comment:Desirable HDL: great er than 40 mg/dL Note: This HDL assay may give artificially low results in patients with liver disease. Blood Venous blood specimen / Unknown 12/08/2023 8:01 AM EDT 12/08/2023 11:17 AM EDT us Naomi Bocanegra MD LAB BLOOD ORDERABLES Final Result Performing Organization Address [facility]/ZIP Co de Phone Number [facility] [address] [place] [phone] from Last 3 Months or Most Recently Relevant to Health Maintenance Insurance [facility] C[facility] Care Teams Photoengraving Apprentice Relationship Specialty Start Date End Date Naomi Alfonso MD [address] [place] [phone] PCP - General Family Medicine 06/19/18
--- OUTSIDE RECORDS SUMMARY | 2025-01-15 07:29 | XMS_ITS | Encounter Summary ---
Author Organization [employer] Address [address] [facility] [address] [place] [address] Care Team Providers Care Card Hand Name Role Phone Naomi Alfonso MD Primary Care Provide r Encounter Details Date Type Department Care Team (Late st Contact Info) Description 07/08/2023 Abstract [facility] [address] [place] [address] Naomi Alfonso MD [address] [place], [place] [phone] Social History Tobacco Use Types Packs/Day Years [...] Description 01/21/2025 9:15 AM EDT Office Visit [facility] [address] [place], [place] [phone] Naomi Alfonso MD [address] [place] [address] documented as of this encounter Visit Diagnoses Not on filedocumented in this encounter Care Teams Card Hand Relationship Specialty Start Date End Date Naomi Alfonso MD [address] [place] [address] [phone] PCP - General Family Medicine 06/19/18 documented as of this encounter
--- OUTSIDE RECORDS SUMMARY | 2025-01-15 07:29 | XMS_ITS | Encounter Summary ---
Author Organization [employer] Address [address] [place] [address] Care Team Providers Care Oral And Maxillofacial Pathologist Name Role Phone Naomi Alfonso MD Primary Care Provide r Encounter Details Date Type Department Care Team ([facility] Contact Info) Description 02/08/2023 Telephone [facility]S [address] [place], [place] [phone] Naomi Alfonso MD [address] [place] [address] Social History Tobacco Use Types Packs/Day Years [...] Description 01/21/2025 9:15 AM EDT Office Visit [facility] [address] [place], [place] [phone] Naomi Alfonso MD [address] [place] [address] [phone] documented as of this encounter Visit Diagnoses Not on filedocumented in this encounter Care Teams Oral And Maxillofacial Pathologist Relationship Specialty Start Date End Date Naomi Alfonso MD [address] [place] [phone] PCP - General Family Medicine 06/19/18 documented as of this encounter
--- OUTSIDE RECORDS SUMMARY | 2025-01-15 07:29 | XMS_ITS | Clinical Summary ---
Author Organization [facility] Address [address] [facility] [address] [place] [address] Phone Care Team Providers Care Molder Trimmer Name Role Phone Unavailable Primary Care Provider [...] age to complete this topic [place]
[2025-01-17 13:10] VITALS: BMI 39.5
[2025-01-18] VITALS (7 sets, daily range): BP systolic 126–144; BP diastolic 76–91; PULSE 68–90; RESP 16–18; TEMP 36.2–36.6; O2SAT 94–100; BMI 39.7
[2025-01-18 09:32] LABS: UPreg QC Valid YES; Urine Pregnancy NEGATIVE (NEGATIVE)
[2025-01-18] MEDS: Lactated Ringers 1,000 ML 100 ML IVCONT (09:36)
--- NOTE | 2025-01-18 09:58 | P.CONAN_ITS ---
Documented by User: Shy Echavarria NP 01/16/25 13:00 HPI - Anesthesia Eval Consult details Narrative: 44yo F for D&C Hysteroscopy, possible myomectomy / polypectomy PMFSH Active Problems Active Problems: All Active Problems Uterine myoma (Acute) HPV in female (Acute) Abnormal Pap smear of cervix (Acute) Fibroid (Acute) Ovarian cyst (Acute) Abnormal uterine bleeding (AUB) (Acute) Precordial chest pain (Acute) Carpal tunnel syndrome of left wrist (Acute) Carpal tunnel syndrome of right wrist (Acute) Past Medical History Medical History (Updated 01/14/25 @ 14:55 by Enrico Manriquez MD) Abnormal Pap smear of cervix Fibroid Ovarian cyst Ectopic Abnormal uterine bleeding (AUB) Asthma Family History Family History Father No problems noted. Mother Stroke Surgical History Surgical History Tubal ligation status History of carpal tunnel surgery of left wrist Social History Social History Alcohol intake: never Patient Tobacco Use Status: Never used Tobacco Have you been hit, kicked, punched, or otherwise hurt by someone within the past year? If so, by whom?: No Advance Directives: No Advance Directives Information Provided: Yes Current occupational status: unemployed Current occupation: right handed Meds Allergies Allergy/AdvReac Type Severity Reaction Status Date / Time No Known Allergies Allergy Verified 01/14/25 14:52 Home Medications ?Medication ?Instructions ?Recorded ?Confirmed ?Last Taken ?Type cholecalciferol (vitamin D3) 50 50 mcg PO DAILY 06/10/22 06/10/22 Unknown History mcg (2,000 unit) capsule albuterol sulfate 90 mcg/actuation 2 puff inhalation QID PRN 10/18/24 Unknown History aerosol inhaler (Ventolin HFA) fluticasone furoate 100 1 inh inhalation QAM 10/18/24 Unknown History mcg/actuation blister powder for inhalation (Arnuity Ellipta) Assessment and Plan Assessment Anesthesia Assessment: Chart Reviewed Documented by User: Princess Schuster DO 01/18/25 09:59 [facility] Past Medical History Medical History (Updated 01/14/25 @ 14:55 by Enrico Manriquez MD) Abnormal Pap smear of cervix Fibroid Ovarian cyst Ectopic Abnormal uterine bleeding (AUB) Asthma Family History Family History Father No problems noted. Mother Stroke Family history of problems with anesthesia: No Surgical History Surgical History Tubal ligation status History of carpal tunnel surgery of left wrist History of Problems with Anesthesia: No Social History Social History Alcohol intake: never Patient Tobacco Use Status: Never used Tobacco Have you been hit, kicked, punched, or otherwise hurt by someone within the past year? If so, by whom?: No Advance Directives: No Advance Directives Information Provided: Yes Current occupational status: unemployed Current occupation: right handed Meds Allergies Allergy/AdvReac Type Severity Reaction Status Date / Time No Known Allergies Allergy Verified 01/14/25 14:52 Home Medications ?Medication ?Instructions ?Recorded ?Confirmed ?Last Taken ?Type cholecalciferol (vitamin D3) 50 50 mcg PO DAILY 06/10/22 06/10/22 Unknown History mcg (2,000 unit) capsule albuterol sulfate 90 mcg/actuation 2 puff inhalation QID PRN 10/18/24 Unknown History aerosol inhaler (Ventolin HFA) fluticasone furoate 100 1 inh inhalation QAM 10/18/24 Unknown History mcg/actuation blister powder for inhalation (Arnuity Ellipta) Exam Exam Date and Time: 01/18/25 0958 Height,Weight and Vital Signs: Height 5 ft 1 in Weight 95.2 kg Vital Signs Temperature 97.5 F 01/18/25 09:26 Pulse Rate 90 01/18/25 09:26 Respiratory Rate 18 01/18/25 09:26 Blood Pressure 127/76 01/18/25 09:26 Pulse Oximetry 97 01/18/25 09:26 Oxygen Delivery Method Room Air 01/18/25 09:26 Temperature 97.5 F 01/18/25 09:26 Pulse Rate 90 01/18/25 09:26 Respiratory Rate 18 01/18/25 09:26 Blood Pressure 127/76 01/18/25 09:26 Pulse Oximetry 97 01/18/25 09:26 Oxygen Delivery Method Room Air 01/18/25 09:26 Airway Mallampati Class: II TM Dist: <=3cm Neck ROM: Full Loose/Missing/Broken Teeth: Yes (broken molar right lower jaw; patient denies any loose teeth) Heart: S1S2 Lungs: CTAB Assessment and Plan Assessment Anesthesia Assessment: Anesthesia Plan Discussed and Chart Reviewed Final Anesthetic Review Family History of Problems with Anesthesia: No History of Problems with Anesthesia: No NPO: Yes ASA Class: II Final Preanesthetic Review: No Changes in Pt Med Stat, Meds/Allgs Chart Reviewed, Consent Obtained/Reviewed and Anes Risks/Benef Reviewed Patient Risk: Low Procedure Risk: Low Anesthetic Plan Anesthetic Plan: GA and Agree w/ Assess. and Plan Disposition: Standard PACU
--- NOTE | 2025-01-18 10:14 | MHC.SHP ---
Pre-Procedural Eval Section A - 24 Hr Update-Section A only Date of Service: 01/18/25 The patient is an INPATIENT: No Changes since office visit: No Cold of Flu in the past 2 weeks, No New Medical Problems, No Changes in Medication and No Patient answered all questions The patient has been examined within 24 hours of the surgical procedure. The History & Physical has been completed within 30 days and I have reviewed it.: Yes Section B - Complete if H&P > 30 days Chief Complaint: Abnormal uterine and vaginal bleeding, unspecified Allergies: Allergies Allergy/AdvReac Type Severity Reaction Status Date / Time No Known Allergies Allergy Verified 01/14/25 14:52 Plan Diagnosis/Plan: Unchanged I have reviewed the history and physical and performed a pertinent physical examination on my patient. No changes have occurred unless specified. Time Spent With Patient Time: Total time managing care of this patient today ____ minutes.
--- NOTE | 2025-01-18 10:57 | PM.OP ---
Brief Operative Note Date of Service: 01/18/25 Pre-op diagnosis: Abnormal uterine bleeding, endometrial polyp by ultrasound Post-op diagnosis: same (Endometrial polyp) Procedure: Hysteroscopy D&C, Polypectomy Surgeon: Enrico Manriquez MD Anesthesia: GLMA Was an Casting Supervisor used for this Procedure?: No Estimated blood loss (mL): 0 Pathology: other (Endometrial Scrapping. Polyp) Condition: stable Disposition: PACU
--- NOTE | 2025-01-18 10:58 | P.OP_ITS ---
Operative Note Operative Note Date of Service: 01/18/25 Narrative: Preop Diagnosis: Abnormal uterine bleeding, Endometrial polyp by US Operation: Diagnostic Hysteroscopy, Dilataion & Curettage and polypectomy Post Op Diagnosis: Endometrial Polyp QBL: Minimal Anesthesia: GLMA Surgeon: Enrico Manriquez MD Convention Services Director: None Complication: None Pathology: Endometrial Scrapings, Endometrial polyp Procedure: The patient was put in the dorsal lithotomy position, scrubbed, and draped in the usual manner. A sterile speculum was inserted in the patient's vagina. The anterior lip of the cervix was grasped with a single tooth tenaculum. The cervix was dilated up to 5 mm, then the scope was inserted in the patient's uterus. Inspection revealed endometrial polyp. The Myosure Reach device was used; it was introduced through the operative channel and polypectomy done with no complications. The scope was then taken out from the uterine cavity, sharp curettings was carried on with minimal to moderate amount of tissues retrieved. At the end of the procedure, all instruments were taken out of the patient uterine and vaginal cavity. The single tooth tenaculum was removed and homeostasis was assured using pressure,. The patient tolerated the procedure well and was transferred to the PACU in a stable condition.
== END 2025-01-18 12:01 | disposition home or self-care (01) ==
PROVIDERS: PCP Internal Medicine; Visit Provider Obstetrics & Gynecology
PROC: 0UDB8ZZ Extraction of Endometrium, Via Natural or Artificial Opening Endoscopic (ICD-10-PCS; CPT 58558; principal; 2025-01-18 12:00)
DX: N93.9 Abnormal uterine and vaginal bleeding, unspecified (principal); N84.0 Polyp of corpus uteri; N83.201 Unspecified ovarian cyst, right side; B97.7 Papillomavirus as the cause of diseases classified elsewhere; D25.9 Leiomyoma of uterus, unspecified; J45.909 Unspecified asthma, uncomplicated; Z79.51 Long term (current) use of inhaled steroids; Z79.899 Other long term (current) drug therapy; Z98.51 Tubal ligation status; Z56.0 Unemployment, unspecified
CPT/HCPCS: 58558; 81025; 88305; J1100; J1885; J2003; J2405; J2704; J3010

== ENCOUNTER → 2025-01-18 08:59 | Outpatient (BNV) | payer MEDICAID, SELFPAY | PROVIDERS: PCP Internal Medicine; Visit Provider Obstetrics & Gynecology | DX: N84.0 Polyp of corpus uteri (principal); N93.9 Abnormal uterine and vaginal bleeding, unspecified | CPT/HCPCS: 58558 ==

== ENCOUNTER 2025-01-31 08:54 | Outpatient (AMB) | payer MEDICAID, SELFPAY ==
--- NOTE | 2025-01-31 09:04 | MHC.OFFVIS ---
Vital Signs 01/31/25 09:05 Height 5 ft 1 in Weight 209 lb BMI 39.5 Intake Visit Reasons: post op Allergies No Known Allergies Allergy (Verified 01/14/25 14:52) HPI Comments Details: The patient is presenting post hysteroscopy D&C no complaints minimal vaginal bleeding no feverishness chills or abdominal pain. The pathology showed the following: A. Endometrium, curettage: Benign early secretory endometrium and fragments of benign endometrial polyp; no atypia or carcinoma. B. Endometrial polyp, resection: Fragments of benign endometrial polyp and benign early secretory endometrium; no atypia or carcinoma The following workup was done so far: H&H =11.7/36.3 TSH, GC/CT negative 09/04 mammogram showed BI-RADS 1 Co testing was negative/HPV high-risk positive, HPV 16/18 negative, no previous history of abnormal co testing, the patient is scheduled for next year co testing on 10/22/2025, the patient is aware. Pelvic ultrasound showed the following: Anteverted uterus, prominent in size heterogeneous in echotexture measuring 9.0 x 5.0 x 6.6 cm. Nabothian cysts. Thickened endometrium measuring 17 mm in thickness. Uterine fibroids as follows: 1. Right fundal intramural 2.2 x 2.2 x 2.5 cm 2. Fundal subserosal measuring 1.5 x 1.6 x 1.8 The right ovary measures, 2.3 x 1.4 x 1.6 cm. Isoechoic lesion possible corpus luteum or dense hemorrhagic cyst measuring 1.3 x 1.2 x 1.3 cm. The left ovary measures, 2.4 x 1.8 x 2.8 cm. Normal sonographic appearance left ovary. No adnexal masses or fluid collections. No free fluid Follow-up ultrasound scheduled in 03/04/2025 with a follow-up appointment, the patient is aware of both [facility] Medical History (Updated 01/14/25 @ 14:55 by Enrico Manriquez MD) Abnormal Pap smear of cervix Fibroid Ovarian cyst Ectopic Abnormal uterine bleeding (AUB) Asthma Surgical History Tubal ligation status History of carpal tunnel surgery of left wrist Family History Father No problems noted. Mother Stroke Social History Alcohol intake: never Patient Tobacco Use Status: Never used Tobacco Current occupational status: unemployed Current occupation: right handed Review of Systems Const All systems reviewed & are unremarkable except as noted in HPI and below Reports as per HPI and Reports no additional complaints GI Reports no additional complaints Reports no additional complaints Physical Exam Vital Signs: BMI result Body Mass Index 39.5 Assessment & Plan Assessment & Plan (1) Abnormal uterine bleeding (AUB): Code(s): N93.9 - Abnormal uterine and vaginal bleeding, unspecified Category: Medical Plan: Discussed with the patient the results of the work up done and options of treatment including Lysteda, control pills, Mirena IUD, endometrial ablation and hysterectomy. All pros, cons, risks and benefits if each option was discussed with the patient and the patient decided to go ahead with Mirena IUD so a more detailed discussion about it was conducted including mechanism of action, risks (uterine perforation, infection, injury to bladder, bowel, displacement, and others) benefits (hypo menorrhea, amenorrhea, ...). GC/CT were taken and the patient was instructed to schedule Mirena IUD insertion on day 1-5 of next cycle . All questions answered, the patient verbalized understanding (2) Uterine myoma: Code(s): D25.9 - Leiomyoma of uterus, unspecified Category: Medical Plan: Counseling regarding options of treatment were done on 01/14/2025 visit, the patient decided to proceed with expectant management, pelvic ultrasound is scheduled in 03/04/2025 with a follow-up appointment, and the patient is aware (3) HPV in female: Comment: Negative Pap Code(s): B97.7 - Papillomavirus as the cause of diseases classified elsewhere Category: Medical Plan: Scheduled co testing appointment on 10/22/2025, the patient is aware Coding Level of Care Code Est Pt Level 3 (83342) Diagnoses Abnormal uterine bleeding (AUB) N93.9 Uterine myoma D25.9 HPV in female B97.7
[2025-01-31 09:05] VITALS: BMI 39.5
--- OUTSIDE RECORDS SUMMARY | 2025-01-31 09:05 | XMS_ITS | Encounter Summary ---
Author Organization [employer] Address [address] [place] [address] Care Team Providers Care Front Desk Receptionist Name Role Phone Naomi Alfonso MD Primary Care Provide r Encounter Details Date Type Department Care Team ([facility] Contact Info) Description 02/08/2023 Telephone [facility] [address] [place], [place] [phone] Naomi Alfonso MD [address] [place] [address] Social History Tobacco Use Types Packs/Day Years [...] Department Care Team (Late Contact Info) Description 03/20/2025 9:15 AM EDT Telemedicine [facility] MED[facility] [address] [place] [address] Naomi Alfonso MD [address] [place] [phone] documented as of this encounter Visit Diagnoses Not on filedocumented in this encounter Care Teams Front Desk Receptionist Relationship Specialty Start Date End Date Naomi Alfonso MD [address] [place] [id number] PCP - General Family Medicine 06/19/18 documented as of this encounter
--- OUTSIDE RECORDS SUMMARY | 2025-01-31 09:05 | XMS_ITS | Clinical Summary ---
Author Organization [facility] Address [address] [facility] [address] [place] [address] Phone Care Team Providers Care Juvenile Court Judge Name Role Phone Unavailable Primary Care Provider [...] age to complete this topic [place]
--- OUTSIDE RECORDS SUMMARY | 2025-01-31 09:05 | XMS_ITS | Encounter Summary ---
Author Organization [employer] Address [address] [place] [address] Care Team Providers Care [employer] Employee Name Role Phone Naomi Alfonso MD Primary Care Provide r Encounter Details Date Type Department Care Team (Late st Contact Info) Description 07/06/2023 Abstract [facility] MED[facility] [address] [place], [place] [phone] Naomi Alfonso MD [address] [place], [place] [phone] Social History Tobacco Use Types Packs/Day Years [...] Care Team (Late st Contact Info) Description 03/20/2025 9:15 AM EDT Telemedicine [facility] [address] [place], [place] [phone] Naomi Alfonso MD [address] [place] [address] documented as of this encounter Visit Diagnoses Not on filedocumented in this encounter Care Teams [employer] Employee Relationship Specialty Start Date End Date Naomi Alfonso MD [address] [place] [phone] PCP - General Family Medicine 06/19/18 documented as of this encounter
--- OUTSIDE RECORDS SUMMARY | 2025-01-31 09:05 | XMS_ITS | Clinical Summary ---
Author Organization [employer] Address [address] [place] [address] 7[address] [place] [address] Care Team Providers Care Delicatessen Manager Name Role Phone Naomi Alfonso MD Primary Care Provide r Allergies No known active allergies Medications albuterol (Ventolin HFA) 108 (90 Base) MCG/ACT inhaler INHALE 2 PUFFS BY MOUTH FOUR TIMES DAILY NEEDED 18 g 1 023 Active Nirmatrelvir&Ri tonavir 150/100 (Paxlovid, 150/100,) 10 x 150 MG & 10 x 100MG tablet therapy packIndications :COVID-19 Take 1 Dose by mouth 2 times daily. 3 tabs 2 times a day x 5 days 30 each 023 Active albuterol (2.5 MG/3ML) 0.083% nebulizer solutionIndicat ions:Mild intermittent asthma with acute exacerbation Take 3 mL (2.5 mg) by nebulization every 4 (four) hours if needed for wheezing. 75 mL 3 023 Active Asmanex HFA 200 MCG/ACT aerosol INHALE 1 PUFF BY MOUTH TWICE DAILY RINSE MOUTH AFTER USING. 13 g 3 024 Active fluticasone furoate (Arnuity Ellipta) 100 MCG/ACT inhalerIndicati ons:Mild intermittent asthma with acute exacerbation Inhale 1 puff in the morning. Rinse mouth with water after use to reduce aftertaste and incidence of candidiasis. Do not swallow. 1 each 11 024 Active famotidine (Pepcid) 20 MG tabletIndicatio ns:Chronic gastritis, presence of bleeding unspecified, unspecified gastritis type Take 1 tablet (20 mg) by mouth 2 times daily. 60 tablet 11 Active Vitamin D High Potency 25 MCG (1000 UT) capsuleIndicati ons:Vitamin D3 deficiency TAKE 1 CAPSULE BY MOUTH DAILY IN THE MORNING 90 capsule 1 Active betamethasone valerate (Valisone) 0.1 % cream Apply topically if needed in the morning and at bedtime (dryness). 45 g Active Blood Pressure [facility] daily 1 each Active triamcinolone (Kenalog) 0.1 % cream Apply to affected area once or twice daily. Use thin layer. Do not use every day for > 2 weeks. 453 g 2 Active D3 Super Strength 50 MCG (2000 UT) capsule TAKE 1 CAPSULE BY MOUTH EVERY DAY 90 capsule Active Semaglutide-Niko ght Management (Wegovy) 0.25 MG/0.5ML solution auto-injectorIn dications:Class 3 severe obesity due to excess calories with serious comorbidity and body mass index (BMI) of 40.0 to 44.9 in adult Inject 0.25 mg under the skin 1 (one) time per week. 0.5 mL Active loratadine (Claritin) 10 MG tabletIndicatio ns:Seasonal allergies Take 1 tablet (10 mg) by mouth Once per day. 30 tablet 11 025 2025 Active loratadine (Claritin) 10 MG tablet Take 1 tablet by mouth once daily. May take up to 3 times daily for 2 weeks. Once rash improves, take once daily as needed 90 tablet 024 2024 Discontinued(R eorder (will not trigger notification to Pharmacy)) loratadine (Claritin) 10 MG tabletIndicatio ns:Seasonal allergies Take 1 tablet by mouth once daily. May take up to 3 times daily for 2 weeks. Once rash improves, take once daily as needed 90 tablet 025 2024 Discontinued Active Problems Problem Noted Date Diagnosed Date Seasonal allergies 01/21/2025 Anxiety with depression 01/21/2025 Assessment & Plan (01/21/2025 1:16 PM EDT): Extensive counseling done today, today she declined therapist and medications, she denies ideas of hurting herself or others I decided to follow-up with her in about 2 weeks to see how she is feeling, if the symptoms are persisting or worsening we will consider [facility] referral and medications Encounter for screening mamm ogram for malignant neoplasm of breast 01/21/2025 Metrorrhagia 06/12/2024 Hematuria 12/13/2023 Chronic bladder pain 12/13/2023 Class 3 severe obesity with serious comorbidity and body mass index (BMI) of 40.0 to 44.9 in adult 12/13/2023 Assessment & Plan (12/13/2023 12:15 PM EDT): Today extensive discussion was done about life style modifications I advise healthy diet (low calorie) and cardiovascular exercise Colon cancer screening 10/28/2023 Assessment & Plan (01/21/2025 1:17 PM EDT): Referral to GI done today Chronic left-sided low back pain with left-sided sciatica 10/28/2023 Left hip pain 10/28/2023 Encounter for preventive health examination 10/13 Assessment & Plan (01/21/2025 1:17 PM EDT): See HPI Assessment & Plan (11/01/2023 4:55 PM EST): [...] Mild intermittent asthma 10/28/2017 Assessment & Plan (01/21/2025 1:15 PM EDT): Currently controlled, continue with same interventions Assessment & Plan (06/12/2024 12:07 PM EDT): Stale c/w albuterol inhaler PRN and Anurity daily Encounters Date Type Department Care Team Description 01/21/2025 9:15 AM EDT Office Visit [address] [address] Naomi Alfonso MD Colon cancer screening (Primary Dx); Encounter for preventive health examination; Dietary counseling; Exercise counseling; Class 3 severe obesity due to excess calories without serious comorbidity with body mass index (BMI) of 40.0 to 44.9 in adult; Mild intermittent asthma, unspecified whether complicated; Seasonal allergies; Anxiety with depression; Encounter for immunization; Encounter for screening mammogram for malignant neoplasm of breast 01/21/2025 Orders Only [address] [address] Naomi Alfonso MD Seasonal allergies (Primary Dx) 01/21/[address] [address] Naomi Alfonso MD Claritin 01/21/2025 Travel 01/18/2025 Orders Only GENERIC EXTERNAL DATA DEPARTMENT Provider, Generic External Data 01/18/[address] [address] Naomi Alfonso MD Chart Prep 01/15/2025 Patient Outreach [facility] [address] [place] [address] Naomi Alfonso MD Pre-visit Planning (SDOH negative, Tobacco screening negative) 12/21/2024 Orders Only [facility] External Provider, [facility] 11/23/2024 Population Health Risk Score [facility] Department [address] [phone] Provider, Population Health Generic 11/16/2024 Patient Outreach [facility] [address] [place] [phone] Naomi Alfonso MD Pre-visit Planning ((Unable to reach for PVP screening, LVM)) from Last 3 Months Immunizations Immunization Administration Dates Next Due Hep B, adult 02/09/2013,11/28/2012,10/03/2012 Influenza, Split (incl. jeremie fied surface antigen) 10/03/2012 Moderna Covid-19 Vaccine 12+ 06/17/2021 Pneumococcal Conjugate PCV 20 01/21/2025 Tdap 01/21/2025,04/04/2012 Social History Tobacco Use Types Packs/Day Years Used Date Smoking Tobacco: Never Passive Smoke Exposure: Never Smokeless Tobacco: Never Tobacco Cessation:Counseling Given: Not Answered Alcohol Use Standard Drinks/Week Comments Never 0 (1 standard drink = 0.6 oz pur e alcohol) Housing Stability Answer Date Recorded What is your housing situation today? I have verena casas 01/15/[address] you li ve. Do you have problems with any of the following? None of the above 01/15/2025 Food Insecurity Answer Date Recorded Within the past 12 months, y ou worried that your food would run out before you got money to buy more: Never True 01/15/2025 Within the past 12 months,th e food you bought just didn't last and you didn't have enough money to get more: Never True 02/2025 Transportation Answer Date Recorded In the past 12 months, has l ack of transportation kept you from medical appts, meetings, work or from getting things needed for daily living? No 01/15/2025 Utilities Answer Date Recorded In the past 12 months, has t he electric, gas, oil or water company threatened to shut off services in your home? No 01/15/2025 Depression Answer Date Recorded Patient Health Questionnaire-2 Score 0 10/28/2023 Internet Access Answer Date Recorded Internet Access Q1 Yes 01/15/2025 Internet Access Q2 Not on file 01/15/2025 Comments Unknown Sex and Gender Information Value Date Recorded Sex Assigned at Female 07/12/2022 10:21 AM EDT Legal Sex Female 10:21 AM EDT Gender Identity Female 07/12/2022 10:21 AM EDT Sexual Orientation Straight 07/12/2022 10 :21 AM EDT Last Filed Vital Signs Vital Sign Reading Time Taken Comments Blood Pressure 130/78 01/21/2025 9:40 AM EDT Pulse 84 01/21/2025 9:40 AM EDT Temperature 36.1 ??C (97 ??F) 01/21/2025 9:40 AM EDT Respiratory Rate 20 01/21/2025 9:40 AM EDT Oxygen Saturation 99% 06/12/2024 9:43 AM EDT Inhaled Oxygen Concentration - - Weight 102 kg (224 lb 12.8 oz) 01/21/2025 9:40 A M EDT Height 154.9 cm (5' 1 ) 06/12/2024 9:43 AM EDT Body Mass Index 42.48 06/12/2024 9:43 AM EDT Plan of Treatment Upcoming Encounters Date Type Department Care Team (Late st Contact Info) Description 03/20/2025 9:15 AM EDT Telemedicine [facility] [address] [place] [address] Naomi Alfonso MD [address] [place] [address] Health Maintenance Due Date Last Done Comments CT Colonography 1978 Colonoscopy 1978 Colorectal Cancer Screening 1978 FIT DNA/Cologuard 1978 FIT 1978 FOBT 1980 Sigmoidoscopy 1980 Disability Screening 1978 Alcohol/Substance Use Screening 1990 Family Planning (PISQ) 1993 COVID-19 Vaccine (2 - 2023-2 5 season) 2024 06/17/2021 Influenza Vaccine (#1) 2024 10/03/2012 Depression Screening 10/28/2024 10/28/2023, 10/28/2023 Tobacco Screening 06/12/2025 06/12/2024 Mammogram 08/17/2025 08/17/2024, 10/17/2019 SDOH Screening 01/15/2026 01/15/2025 Pap Smear 10/18/2027 10/18/2024 Zoster Vaccines (1 of 2) 2028 Lipid Panel 12/07/2028 12/08/2023, 01/13/2023, 09/09/2021 Cervical Cancer Screening 10/18/2029 HPV/Cotest 10/18/2029 10/18/2024, 10/04/2019 DTaP/Tdap/Td Vaccines (3 - T d or Tdap) 01/21/2035 01/21/2025, 04/04/2012 RSV Patients and Patients Aged 60 years or older (1 - 1-dose 75+ series) 2053 Hepatitis B Vaccines Completed 02/09/2013, 11/28/2012, 10/03/2012 HIV Screening Completed 12/08/2023 Hepatitis C Screening Completed 12/08/2023 Pneumococcal Vaccine: Pediatrics (0 to 5 Years) and At-Risk Patients (6 to 49) Years) Completed 01/21/2025 HIB Vaccines Aged Out No longer eligi [...] patient's age to complete this topic Meningococcal B Vaccine Aged Out No l onger eligible based on patient's age to complete [...] Procedure Name Priority Date/Time Associated Diagnosis Comments HEMATOXYLIN AND EOSIN STAIN Routine 01/18/2025 10:46 AM EDT HCG, QL, URINE Routine 01/18/2025 12:00 AM EDT US PELVIS TRANSVAGINAL Routine 5 11:22 AM EDT HPV DNA, LOW/HIGH RISK Routine 5 10:01 AM EST PAP SMEAR Routine 10/18/2024 10:01 AM EST BI MAMMOGRAM SCREENING TOMOSYNTHESIS BILATERAL [...] Recently Relevant to Health Maintenance Results * Hematoxylin and Eosin Stain (01/18/2025 10:46 AM EDT) 01/18/2025 10:4 6 AM EDT 01/18/2025 11:50 AM EDT [facility] - 01/21/2025 2:24 PM EDT ----- ------- Name: Naomi Chavira ? Age/Sex: 44/F ? : 1980 Unit#: [id number] ?? Attend Dr: Enrico Manriquez MD ?Re01/18/25 ?[place]: [place] [facility] ? Location: HO.SSS ?Disch: ? ----- ------- SPEC : [id number] ? RECD: 01/18/25 ? STATUS: ??SOUT ? REQ NUM: [id number] ? AUNDREA: 01/18/25-6 ? SUBM DR: Enrico Manriquez MD ? ENTERED: ??01/18/25-1156 ?SP TYPE: Surgical ? OTHR DR: Naomi Alfonso MD ? ORDERED: ??HE Stain/4, Gross Micro L4/2 ? Diagnosis ?? A. ??Endometrium, curettage: ??Benign early secretory endometrium and fragments of benign ?? endometrial polyp; no atypia or carcinoma. ? B. ??Endometrial polyp, resection: ??Fragments of benign endometrial polyp and benign early ?? secretory endometrium; no atypia or carcinoma. ?Clinical History Pre-Op Dx: ??Abnormal uterine and vaginal bleeding Post-Op Dx: Endometrial polyp ?Microscopic Description Microscopic sections reviewed. ? Material Received ?? A. EMC ?? B. Endometrial polyp ? Gross Description Received in 2 parts. A. Received in formalin, on Telfa, labeled ?EMC? are fragments of red- pink soft tissue mixed with mucus and clotted blood forming an aggregate measuring 4.2 x 3.3 x 0.8 cm which is wrapped in lens paper and entirely submitted for microscopic examination, multiple pieces in cassettes A1 through A3. B. ??Received in formalin, in a mesh filtration device, labeled ?endometrial polyp? are fragments of rubbery, pink-pierce tissue mixed with clotted blood forming an aggregate measuring 3.4 x 3.0 x 0.5 cm which is wrapped in lens paper and entirely submitted for microscopic examination, multiple pieces in cassettes B1 and B2. ??([facility]) Copies To: ?? Naomi Alfonso MD ?? [facility] ?? [address] [facility] ?? [place] [address] ?? [phone] ? CONTINUED ON NEXT PAGE ----- ------- Name: Naomi Chavira ? Age/Sex: 44/F ? : 1980 Unit#: [id number] ?? Attend Dr: Enrico Manriquez MD ?Re01/18/25 ?Status: DEP SDC ? Location: HO.SSS ?Disch: ? ----- ------- SPEC : [id number] ? RECD: 01/18/25-1149 ? STATUS: ??SOUT ? REQ NUM: [id number] ? AUNDERA: 01/18/25-1046 ? SUBM DR: Enrico Manriquez MD ? ENTERED: ??01/18/25-1156 ?SP TYPE: Surgical ? OTHR DR: Naomi Alfonso MD ? ORDERED: ??HE Stain/4, Gross Micro L4/2 ? Copies To: ??(Continued) ?? Enrico Manriquez MD ?? [facility] ?? [address] [facility] [address] ?? [place] [address] ?? [phone] ----- ------- Signed (signature on file) Gricelda Carrillo 01/21/25 1424 ? ----- ------- ? END OF REPORT ? Generic External Data Provider LAB BLOOD ORDERAB LES Final Result Performing Organization Address [facility] de Phone Number [facility] [address] [place] [address] [phone] * HCG, Qualitative, Urine (01/18/2025 12:00 AM EDT) Urine NEGATIVE NEGATIVE [facility] Comment:This test was develo ped to detect early . Falsenegative results may occur after the 5th - 7th week ofpregnancy when using this test method. If clinicallyindicated, consider a serum hCG. 01/18/2025 01/18/2025 Generic External Data Provider LAB URINE ORDERAB LES Final Result Performing Organization Address [facility] de Phone Number [facility] [address] [place] [address] [phone] * US Pelvis Transvaginal (12/22/2024 11:22 AM EDT) Anatomical Region Laterality Modality Pelvis Ultrasound 12/22/2024 11:2 2 AM EDT Narrative 12/22/2024 11:24 AM EDT ? [facility] ?[address] ?[place] [address] ? Ultrasound Report ? Signed ? Patient: Ellen Naomi Gaston ? MR#: [id number] ? : 1980 ?Acct:[id number] ? Age/Sex: 44 / F ?ADM Date: 12/21/ ? Loc: HO.US ? Attending Dr: Marah Das CNM ? Ordering Physician: Marah Das CNBianca ?? Date of Service: 12/21/24 ?? Procedure(s): US pelvic and transvaginal ?? Accession Number(s): [id number] ? cc: Naomi Alfonso MD; Marah Das [...] DD/ 1122 ? TD/TT: 12/22/24 1122 ? Material Handling Supervisor: ? Procedure Note Matty Del Toro - 12/22/[address] [address] Ultrasound Report Signed Patient: Naomi Cahvira MR#: [id number] : 1980Acct:[id number] Age/Sex: 44 / FADM Date: 12/21/24 Loc: HO.US Attending Dr: Marah Das CNM Ordering Physician: Marah Das CNM Date of Service: 12/21/24 Procedure(s): US pelvic and transvaginal Accession Number(s): [id number] cc: Naomi Alfonso MD; Marah Das CNM [...] 12/22/24 1123 DD/ 1122 TD/TT: 12/22/24 1122 Material Handling Supervisor: [facility] External Provider IMG US PROCEDURES Final Result * (ABNORMAL) HPV DNA, Low/High Risk (10/18/2024 10:01 AM EST) HPV High Risk Positive(A) Negative [facility] HPV Genotype 16 Negative Negative [facility] HPV Genotype 18 Negative Negative [facility] Comment:HPV testing performe d at [facility] (CLIA#[id number]), [address] [place] [address].Testing for HPV was performed using the Ignacio [...] Provider LAB BLOOD ORDERAB LES Final Result [facility] [address] [place] [phone] * Pap Smear (10/18/2024 10:01 AM EST) 10/18/2024 10:0 1 AM EST 10/19/2024 7:00 AM EST Narrative [facility] - 11/01/2024 11:40 AM EST ----- ------- Name: Naomi Chavira ? Age/Sex: 44/F ? : 1980 Unit#: [id number] ?? Attend Dr: Marah Das CNM ?Re10/18/24 ?Status: DEP REF ? Location: HO.LNP ?Disch: ? ----- ------- SPEC : [id number] ? RECD: 10/19/24 ? STATUS: ??SOUT ? REQ NUM: [id number] ? AUNDREA: 10/18/24-100 ? SUBM DR: Marah [...] Copies To: ?? Naomi Alfonso MD ?? [facility] ?? [address] [facility] ?? [place] [address] ?? [phone] ? CONTINUED ON NEXT PAGE ----- ------- Name: Naomi Chavira ? Age/Sex: 44/F ? : 1980 Unit#: [id number] ?? Attend Dr: Marah Das CNM ?Re10/18/24 ?Status: DEP REF ? Location: HO.LNP ?Disch: ? ----- ------- SPEC : [id number] ? RECD: 10/19/24 ? STATUS: ??SOUT ? REQ NUM: [id number] ? AUNDREA: 10/18/24 ? SUBM DR: Marah Das CNM ? ENTERED: ??10/19/24 ?SP TYPE: Pap Smr ?OTHR : Naomi Alfonso MD ? ORDERED: ??Pap Smear ? Copies To: ??(Continued) ?? Marah Das CNM ?? [facility] ?? [address] [facility] [address] ?? [place] [address] ?? [phone] ----- ------- Signed (signature on file) Tiffanie Bonilla, CT ([facility]) 10/28/24 1818 ? (signature on file) Parker Roper, CT ([facility]) 11/01/24 1140 ? ----- ------- ? END OF REPORT ? us Generic External Data Provider LAB CYTOLOGY ARTURO MCDOWELL Final Result [facility] [address] [place] [phone] * BI Mammogram Screening Tomosynthesis Bilateral (08/17/2024 9:00 AM EST) Anatomical Region Laterality Modality Breast Bilateral Mammography 08/17/2024 9:00 AM EST Narrative 08/23/2024 10:19 AM EST ? [facility] [place] ? [address] [facility] ?[place] [address] ? Mammography Report ? Signed with Addenda ? Patient: Ellen Gaston,Naomi Alberts ? MR#: [id number] ? : 1980 ?Acct:[id number] ? Age/Sex: 44 / F ?ADM Date: 12/06/24 ? Loc: HO.MAMMO ? Attending Dr: Naomi Bocanegra MD ? Ordering Physician: Naomi Alfonso MD ?Results: ?? 1Negative ? Date of Service: 08/17/24 ?Follow Up: 1 Year From Orig ?? inal Mammogram ? Procedure(s): MM tomosynthesis screening BI ?? Accession Number(s): [id number] ? cc: Naomi Alfonso MD ?ADDENDUM ? [...] next mammogram. ? Electronically signed by: ??Ena Donwing DO ??08/23/2024 10:11 AM EST ? Dictated By: ?Ena Downing DO ? Signed By: ?<Electronically signed by Ena Downing, DO in OV> ? 12/12/24 1011 ? DD/ 0900 ? TD/TT: 08/17/24 0930 ? Material Handling Supervisor: ? Procedure Note Charliethu, Image - 08/29/2024 [place] [facility] [address] [place] [address] Mammography Report Signed with Adelinaenda Patient: Naomi Chavira MR#: [id number] : 1980Acct:[id number] Age/Sex: 44 / FADM Date: 08/17/24 Loc: NOAH.EVAO Attending Dr: Naomi Bocanegra MD Ordering Physician: Naomi Alfonsoesults: 1Negative Date of Service: 08/17/24Follow Up: 1 Year From Orig inal Mammogram Procedure(s): MM tomosynthesis screening BI Accession Number(s): [id number] cc: Naomi Alfonso MD ADDENDUM ADDENDUM #1 [...] OV> 08/23/24 1011 DD/ 9 TD/TT: 08/17/[address] Material Handling Supervisor: Naomi Bocanegra MD IMG BI PROCEDURES Bobby lily Result - Final * Hepatitis C Antibody with Reflex to HCV, RNA, Quantitative, Real-Time PCR (12/08/2023 8:01 AM EDT) Hepatitis C Antibody Nonreactive Nonreactive [facility] Comment:Antibodies to HCV no t detected; does not exclude early acuteHCV infection. Blood Venous blood specimen / Unknown 12/08/2023 8:01 AM EDT 12/08/2023 11:17 AM EDT Naomi Bocanegra MD LAB BLOOD ORDERABLES Final Result Performing Organization Address [facility]/State/ZIP Co de Phone Number [facility] [address] [place] [phone] * HIV-1/2 Antigen and Antibodies, Fourth Generation, with Reflexes (12/08/2023 8:01 AM EDT) HIV AB/AG Nonreactive Nonreactive [facility] Comment:HIV-1 p24 Ag and/or HIV-1/HIV-2 Ab not detected.A test result that is nonreactive does not exclude thepossibility of exposure to or infection with HIV-1 and/orHIV-2. Nonreactive results in this assay for individualswith prior exposure to HIV-1 and/or HIV-2 may be due toantigen and antibody levels that are below the limit ofdetection of this assay.The [employer]ks HIV Ag/Ab Combo assay result andsupplemental assay results should be interpreted inconjunction with the patient's clinical presentation,history and other laboratory results. If the results areinconsistent with clinical evidence, additional testing issuggested to confirm the result. Blood Venous blood specimen / Unknown 12/08/2023 8:01 AM EDT 12/08/2023 11:17 AM EDT Naomi Bocanegra MD LAB BLOOD ORDERABLES Final Result Performing Organization Address [facility]/ZIP Co de Phone Number [facility] [address] [place] [address] [phone] * (ABNORMAL) Lipid Panel, Standard (12/08/2023 8:01 AM EDT) Triglycerides 144 <150 mg/dL [facility] Comment:Desirable Triglyceri de: less than 150 mg/dLBorderline High Triglyceride 150-199 mg/dLHigh Triglyceride: 200-499 mg/dLVery High Triglyceride: greater than or equal to 5OO mg/dL Cholesterol 179 <200 mg/dL [facility] Comment:Desirable Cholestero l: less than 200 mg/dLBorderline High Cholesterol: 200-239 mg/dLHigh Cholesterol: greater than 239 mg/dL LDL Cholesterol Calculated 117(H) <100 mg/dL [facility] Comment:Desirable LDL: less than 100 mg/dLNear Optimal/Above Optimal LDL: 110- 129 mg/dLBorderline High LDL: 130-159 mg/dLHigh LDL: 160-189 mg/dLVery High LDL: greater than or equal to 190 mg/dL HDL Cholesterol 34(L) >40 mg/dL [facility] Comment:Desirable HDL: great er than 40 mg/dL Note: This HDL assay may give artificially low results in patients with liver disease. Blood Venous blood specimen / Unknown 12/08/2023 8:01 AM EDT 12/08/2023 11:17 AM EDT us Naomi Bocanegra MD LAB BLOOD ORDERABLES Final Result [facility] [address] [place] [phone] [phone] from Last 3 Months or Most Recently Relevant to Health Maintenance Insurance [facility] C3 HS PARTIAL Care Teams Delicatessen Manager Relationship Specialty Start Date End Date Naomi Alfonso MD [address] [place] [phone] PCP - General Family Medicine 06/19/18
--- OUTSIDE RECORDS SUMMARY | 2025-01-31 09:05 | XMS_ITS | Encounter Summary ---
Author Organization [employer] Address [address] [place] [address] Care Team Providers Care Rouge Presser Name Role Phone Naomi Alfonso MD Primary Care Provide r Encounter Details Date Type Department Care Team (Late st Contact Info) Description 07/08/2023 Abstract [facility] [address] [place], [place] [phone] Naomi Alfonso MD [address] [place], [place] [phone] Social History Tobacco Use Types Packs/Day Years [...] Info) Description 03/20/2025 9:15 AM EDT Telemedicine [facility] [address] [place], [place] [phone] Naomi Alfonso MD [address] [place] [address] documented as of this encounter Visit Diagnoses Not on filedocumented in this encounter Care Teams Rouge Presser Relationship Specialty Start Date End Date Naomi Alfonso MD [address] [place] [phone] PCP - General Family Medicine 06/19/18 documented as of this encounter
== END 2025-01-31 09:40 | disposition home or self-care (01) ==
LOC: HO.HWS 08:54
PROVIDERS: PCP Internal Medicine; Visit Provider Obstetrics & Gynecology
DX: N93.9 Abnormal uterine and vaginal bleeding, unspecified (principal); D25.9 Leiomyoma of uterus, unspecified; B97.7 Papillomavirus as the cause of diseases classified elsewhere
CPT/HCPCS: 99213

== ENCOUNTER → 2025-01-31 08:54 | Outpatient (BNVA) | payer MEDICAID, SELFPAY | PROVIDERS: PCP Internal Medicine; Visit Provider Obstetrics & Gynecology | DX: Z48.816 Encounter for surgical aftercare following surgery on the genitourinary system (principal); N93.9 Abnormal uterine and vaginal bleeding, unspecified; D25.9 Leiomyoma of uterus, unspecified; B97.7 Papillomavirus as the cause of diseases classified elsewhere | CPT/HCPCS: 99212 ==

== ENCOUNTER 2025-05-03 14:44 | Outpatient (REF) | payer MEDICAID, SELFPAY ==
--- NOTE | ~2025-05-03 | US_ITS ---
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 TECHNIQUE: Ultrasound of the pelvis is performed using both transabdominal and transvaginal transducers along with Doppler. Transvaginal imaging is performed due to inadequate visualization transabdominally. FINDINGS: Uterus: The uterus is anteverted and measures 10.2 x 4.4 x 5.3 cm. The double wall endometrial thickness is 13 mm. The uterus is smooth in contour and has normal myometrial echogenicity. Uterine leiomyomas demonstrated on prior ultrasound are not visualized on the current study. Adnexa: Both ovaries are visualized. There is normal color flow to the adnexa. There is no ovarian torsion. There is no pelvic ascites or fluid collection. Right ovary measures 2.4 x 1.6 x 2.1 cm. Left ovary measures 2.7 x 1.3 x 1.6 cm. US/US pelvic and transvaginal IMPRESSION: Unremarkable. Previously demonstrated uterine leiomyomas are not clearly visualized on the current study. Electronically signed by: Bartolo Williamson MD 05/03/2025 04:06 PM EDT
--- OUTSIDE RECORDS SUMMARY | 2025-05-03 14:47 | XMS_ITS | Encounter Summary ---
Author Organization [employer] Address [address] [facility] 7t [place] [address] Care Team Providers Care Lug Loader Name Role Phone Naomi Alfonso MD Primary Care Provide r Reason for Visit * Reason Onset Date Comments Nurse Triage 04/11/2025 Encounter Details Date Type Department Care Team ([facility] st Contact Info) Description 04/11/2025 Telephone [facility] MEDICINE [address] [place], [place] [phone] Naomi Alfonso MD [address] [place], [place] [phone] Nurse Triage Social History Tobacco Use Types Packs/Day Years Used Date Smoking Tobacco: Never Passive Smoke Exposure: Never Smokeless Tobacco: Never Alcohol Use Standard Drinks/Week Comments Never 0 (1 standard drink = 0.6 oz pur e alcohol) Housing Stability Answer Date Recorded What is your housing situation today? I have verenacrescencio casas 01/15/[address] you [...] encounter Miscellaneous Notes * Telephone Encounter - Beti Gao RN - 04/11/2025 11:16 AM EDT Call returned to Naomi Keita to triage below at [phone]. Reports that whenis on an airplane as its descending pt has a severe DICKSON with some facial tingling. Per pt flew back to country 3 months ago, had sx with flight to and [place]. Per pt is not experiencing sx currently. Per pt this occurs every plane ride. Per pt did attempt to chew gum as instructed by a doctor onthe plane with no relief. Pt states was concerned that this occurs on plane ride. Pt again denies having any active sx. Pt noted to have missed last telehealth with PCP to discuss anxiety. Pt rescheduled for first available Telehealth slot with PCP . Pt advised to return call if sx recur prior to appointment. Will send to PCP to update regarding rescheduled telehealth as follow up was to be in 2 weeks form original appt on 01/21/2025, and any other recommendations regarding above sx associated with plane rides. Protocol Used: No Protocol Available (Adult) Protocol-Based Disposition: See in Office or Video Visit within 2 Weeks Future Appointments Date Time Provider Department Center 06/05/2025 9:00 AM Naomi Bocanegra MD MEDICINE [facility] Insurance verified as active per Real Time Eligibility in [facility]. Video visit offer not recorded Positive Triage Question: * Nursing judgment * All higher-acuity triage questions were negative Care Advice Discussed: * Reasons To Call Back - New symptoms develop - You become worse * Telephone Encounter - Aaronjarret Alexys - 04/11/2025 11:04 AM EDT Tc from pt stating she is experiencing really bad headaches , electrical shock like waves in her face and she feels her teeth are going to fall off. Contact pt at [phone] documented in this encounter Plan of Treatment Upcoming Encounters Date Type Department Care Team (Late st Contact Info) Description 06/05/2025 9:00 AM EDT Telemedicine [facility] MEDICINE [address] [place] [phone] Naomi Alfonso MD [address] [place] [phone] documented as of this encounter Visit Diagnoses Not on filedocumented in this encounter Care Teams Lug Loader Relationship Specialty Start Date End Date Naomi Alfonso MD [address] [place] [phone] PCP - General Family Medicine 06/19/18 documented as of this encounter
--- OUTSIDE RECORDS SUMMARY | 2025-05-03 14:47 | XMS_ITS | Clinical Summary ---
Author Organization [facility] Address [address] [facility] [address] [place] [address] Phone Care Team Providers Care Fermenter Wine Name Role Phone Unavailable Primary Care Provider [...] 19+ 3-dose series) 1997 Influenza Vaccine (#1) 2025 Pneumococcal Vaccine: Peds ( 0 to 5 Years) and At-Risk Patients (6 to 49 Years) Aged Out No longer eligible b ased on patient's age to complete this topic [place]
== END 2025-05-03 14:45 | disposition home or self-care (01) ==
LOC: HO.US 14:44
PROVIDERS: PCP Internal Medicine; Visit Provider Advanced Practice Midwife
DX: D21.9 Benign neoplasm of connective and other soft tissue, unspecified (principal); N83.209 Unspecified ovarian cyst, unspecified side
CPT/HCPCS: 76830; 76856

== ENCOUNTER → 2025-05-03 14:47 | Outpatient (BNV) | payer MEDICAID, SELFPAY | PROVIDERS: PCP Internal Medicine; Visit Provider Radiology Diagnostic Radiology | DX: D25.9 Leiomyoma of uterus, unspecified (principal) | CPT/HCPCS: 76830; 76856 ==

== ENCOUNTER 2025-05-09 08:37 | Outpatient (REF) | payer MEDICAID, SELFPAY ==
--- OUTSIDE RECORDS SUMMARY | 2025-05-09 09:18 | XMS_ITS | Clinical Summary ---
Author Organization [facility] Address 100 [facility] [address] 0 [place] [address] Phone Care Team Providers Care Bow Maker Name Role Phone Unavailable Primary Care Provider [...] age to complete this topic Insurance [place]
--- OUTSIDE RECORDS SUMMARY | 2025-05-09 09:18 | XMS_ITS | Encounter Summary ---
Author Organization [employer] Address [address] [facility] 7t [place] [address] Care Team Providers Care German Teacher Name Role Phone Naomi Alfonso MD Primary Care Provide r Encounter Details Date Type Department Care Team ([facility] Contact Info) Description 02/08/2023 Telephone [facility] [address] [place], [place] [phone] Naomi Alfonso MD [address] [place] [address] Social History Tobacco Use Types Packs/Day Years [...] Department Care Team (Late Contact Info) Description 06/05/2025 9:00 AM EDT Telemedicine [facility] MEDICINE 230 [place] [address] Naomi Alfonso MD [address] [place], [place] [phone] documented as of this encounter Visit Diagnoses Not on filedocumented in this encounter Care Teams German Teacher Relationship Specialty Start Date End Date Naomi Alfonso MD [address] [place] [phone] PCP - General Family Medicine 06/19/18 documented as of this encounter
--- OUTSIDE RECORDS SUMMARY | 2025-05-09 09:18 | XMS_ITS | Clinical Summary ---
Author Organization [employer] Address [address] [place] [address] 7t [place] [address] Care Team Providers Care Boat Detailer Name Role Phone Noami Alfonso MD Primary Care Provide r Allergies [...] Check BP daily 1 each 4 Active triamcinolone (Kenalog) 0.1 % cream [...] time per week. 0.5 mL 4 Active loratadine (Claritin) 10 MG tabletIndication s:Seasonal allergies Take 1 tablet (10 mg) by mouth Once per day. 30 tablet 11 5 026 Active Active Problems Problem Noted Date Diagnosed [...] are persisting or worsening we will consider [facility] referral and medications Encounter for screening mamm [...] Encounters Date Type Department Care Team Description 05/03/2025 Orders Only [facility] External Provider, [facility] 04/11/2025 Telephone [facility] MEDICINE [address] [place] [address] Naomi Alfonso MD Nurse Triage 03/20/2025 Telephone [facility] MEDICINE [address] [place] [address] Naomi Alfonso MD No Show 03/19/2025 Telephone [facility] MEDICINE [address] [place] [address] Naomi Alfonso MD chart prep 03/11/2025 Patient Outreach [facility] MEDICINE [address] [place] [address] Naomi Alfonso MD Pre-visit Planning ([facility] screening completed on 01/15/2025) from Last 3 Months Immunizations Immunization Administration [...] 84 01/21/2025 9:40 AM EDT Temperature 36.1 C (97 F) 01/21/2025 9:40 AM EDT Respiratory Rate 20 [...] Info) Description 06/05/2025 9:00 AM EDT Telemedicine [facility] MEDICINE [address] [place] [address] Naomi Alfonso MD 230 [place] [address] Health Maintenance Due Date Last Done Comments CT Colonography 1980 Colonoscopy 1978 Colorectal Cancer Screening 1978 FIT DNA/Cologuard 1978 FIT 1978 FOBT 1978 Sigmoidoscopy 1978 Disability Screening 1978 Alcohol/Substance Use Screening 1990 Family Planning (PISQ) 1993 COVID-19 Vaccine (3 2023-2 5 season) 2024 08/05/2021, 06/17/2021 Depression Screening 10/28/2024 10/28/2023, 10/28/2023 Influenza Vaccine (#1) 2025 10/03/2012 Tobacco Screening 06/12/2025 06/12/2024 Mammogram 08/17/2025 08/17/2024, [...] Years) and At-Risk Patients (6 to 49) Years Completed 01/21/2025 HIB Vaccines Aged Out No [...] Associated Diagnosis Comments US PELVIS TRANSVAGINAL Routine 5 3:19 PM EDT HPV DNA, LOW/HIGH RISK Routine 5 [...] Health Maintenance Results * US Pelvis Transvaginal (05/03/2025 3:19 PM EDT) Anatomical Region Laterality Modality Pelvis Ultrasound 05/03/2025 3:19 PM EDT Narrative 05/03/2025 4:09 PM EDT [place] [address] Ultrasound Report Signed Patient: Naomi Chavira MR#: [id number] : 1980 Acct:[id number] Age/Sex: 44 / F ADM Date: 05/03/25 Loc: .US Attending Dr: Marah Das CNM Ordering Physician: Marah Das CNM Date of Service: 05/03/25 Procedure(s): US pelvic and transvaginal Accession Number(s): [id number] cc: Naomi Alfonso MD; Marah Das CNM 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 TECHNIQUE: Ultrasound of the pelvis is performed using both transabdominal and transvaginal transducers along with Doppler. Transvaginal imaging is performed due to inadequate visualization transabdominally. FINDINGS: Uterus: The uterus is anteverted and measures 10.2 x 4.4 x 5.3 cm. The double wall endometrial thickness is 13 mm. The uterus is smooth in contour and has normal myometrial echogenicity. Uterine leiomyomas demonstrated on prior ultrasound are not visualized on the current study. Adnexa: Both ovaries are visualized. There is normal color flow to the adnexa. There is no ovarian torsion. There is no pelvic ascites or fluid collection. Right ovary measures 2.4 x 1.6 x 2.1 cm. Left ovary measures 2.7 x 1.3 x 1.6 cm. US/US pelvic and transvaginal IMPRESSION: Unremarkable. Previously demonstrated uterine leiomyomas are not clearly visualized on the current study. Electronically signed by: Bartolo Williamson MD 05/03/2025 04:06 PM EDT RP Dictated By: Bartolo Williamson MD Signed By: <Electronically signed by Bartool Williamson MD in OV> 05/03/25 1606 DD/ 1519 TD/TT: 05/03/25 1527 Director Of Kids: Procedure Note Donotuseinterpreter, Image - 05/03/2025 [place] [address] Ultrasound Report Signed Patient: Naomi Chavira MR#: [id number] : 1980Acct:[id number] Age/Sex: 44 / FADM Date: 05/03/25 Loc: HO.US Attending Dr: Marah Das CNM Ordering Physician: Marah Das CNM Date of Service: 05/03/25 Procedure(s): US pelvic and transvaginal Accession Number(s): [id number] cc: Naomi Alfonso MD; Marah Das CNM 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 TECHNIQUE: Ultrasound of the pelvis is performed using both transabdominal and transvaginal transducers along with Doppler. Transvaginal imaging is performed due to inadequate visualization transabdominally. FINDINGS: Uterus: The uterus is anteverted and measures 10.2 x 4.4 x 5.3 cm. The double wall endometrial thickness is 13 mm. The uterus is smooth in contour and has normal myometrial echogenicity. Uterine leiomyomas demonstrated on prior ultrasound are not visualized on the current study. Adnexa: Both ovaries are visualized. There is normal color flow to the adnexa. There is no ovarian torsion. There is no pelvic ascites or fluid collection. Right ovary measures 2.4 x 1.6 x 2.1 cm. Left ovary measures 2.7 x 1.3 x 1.6 cm. US/US pelvic and transvaginal IMPRESSION: Unremarkable. Previously demonstrated uterine leiomyomas are not clearly visualized on the current study. Electronically signed by: Bartolo Williamson MD 05/03/2025 04:06 PM EDT RP Dictated By: Bartolo Williamson MD Signed By: <Electronically signed by Bartolo Williamson MD in OV> 05/03/25 1606 DD/ 1519 TD/TT: 05/03/25 1527 Director Of Kids: [facility] External Provider IMG US PROCEDURES Final Result * (ABNORMAL) HPV DNA, Low/High Risk (10/18/2024 10:01 AM EST) HPV High Risk Positive(A) Negative [facility] HPV Genotype 16 Negative Negative [facility] HPV Genotype 18 Negative Negative [facility] Comment:HPV testing performe d at [facility] (CLIA#[id number]), [address] [place] [address].Testing for HPV was performed using the Ignacio [...] Provider LAB BLOOD ORDERAB LES Final Result [facility] [address] [place] [phone] * Pap Smear (10/18/2024 10:01 AM EST) 10/18/2024 10:0 1 AM EST 10/19/2024 7:00 AM EST Narrative [facility] - 11/01/2024 11:40 AM EST ----- ------- Name: Naomi Chavira Age/Sex: 44/F : 1980 Unit#: [id number] Attend Dr: Marah Das CNM Re10/18/24 Status: ANABELA REF Location: HO.LNP Disch: ----- ------- SPEC : [id number] RECD: 10/19/24 STATUS: JAROCHO GRAYSON NUM: [id number] AUNDREA: 10/18/24-[address]: Marah Das CNM ENTERED: 10/19/24 SP TYPE: Pap Smr OTHR DR: Naomi Alfonso MD ORDERED: Pap Smear Addendum Addendum 1 Entered: 11/01/24-1138 HPV High Risk: Positive HPV Genotyping 16: Negative HPV Genotyping 18: Negative Addendum Signed (signature on file) SHEA Parks (ASCP) 11/01/24 1140 ----- ------- Interpretation Satisfactory for evaluation. Negative for intraepithelial lesion or malignancy. HPV High Risk: Negative HPV Genotyping 16: Negative HPV Genotyping 18: Negative Clinical Information LMP: Unknown date Previous PAP test: 3 years ago, WNL Other history: Abnormal uterine bleeding Material Received Cervix Copies To: Naomi Alfonso MD [address] [address] CONTINUED ON NEXT PAGE ----- ------- Name: Naomi Chavira Age/Sex: 44/F : 1980 Unit#: [id number] Attend Dr: Marah Das [facility] Re10/18/24 Status: DEP [facility] Disch: ----- ------- SPEC : [id number] RECD: 10/19/24 STATUS: JAROCHO GRASYON NUM: [id number] AUNDREA: 10/18/24-[address] [facility] [address]: Marah Das CNM ENTERED: 10/19/24 SP TYPE: Pap Smr OTHR DR: Naomi Alfonso MD ORDERED: Pap Smear Copies To: (Continued) Marah Das CNM [facility] [address] [place] [address] Drive [address] [place] [phone] ----- ------- Signed (signature on file) Tiffanie Bonilla, [place] ([facility]) 10/28/24 1818 (signature on file) Parker Roper, [place] ([facility] 11/01/24 1140 ----- ------- END OF REPORT us Generic External Data Provider LAB CYTOLOGY ARTURO MCDOWELL Final Result [facility] [address] [place] [phone] * BI Mammogram Screening Tomosynthesis Bilateral (08/17/2024 9:00 AM EST) Anatomical Region Laterality Modality Breast Bilateral Mammography 08/17/2024 9:00 AM EST Narrative 08/23/2024 10:19 AM EST [facility] [address] [place] [address] Mammography Report Signed with Addenda Patient: Naomi Chavira MR#: [id number] : 1980 Acct:[id number] Age/Sex: 44 / F ADM Date: 08/17/24 Loc: HO.MAMMO Attending Dr: Naomi Bocanegra MD Ordering Physician: Naomi Alfonso MD Results: 1Negative Date of Service: 08/17/24 Follow Up: 1 Year From Orig ina Mammogram Procedure(s): MM tomosynthesis screening BI Accession Number(s): [id number] cc: Naomi Alfonso MD ADDENDUM ADDENDUM #1 [...] DO Addendum Signed By: <Electronically signed by Ena Downing DO in [place]> 08/29/24 1420 Addendum Cosigned By: [...] Downing DO in OV> 08/23/24 1011 DD/ 09 TD/TT: 08/17/24 09 Director Of Kids: Procedure Note Donotuseinterpreter, Image - 08/29/2024 [facility] [address] [place] [address] Mammography Report Signed with Addenda Patient: Naomi Chavira MR#: [id number] : 1980Acct:[id number] Age/Sex: 44 / FADM Date: 08/17/24 Loc: HO.MAMMO Attending Dr: Naomi Bocanegra MD Ordering Physician: Naomi Alfonso MDResults: 1Negative Date of Service: 08/17/24Follow Up: 1 Year From Orig ina Mammogram Procedure(s): MM tomosynthesis screening BI Accession Number(s): [id number] cc: Naomi Alfonso MD ADDENDUM ADDENDUM #1 ADDENDUM: Patient states that she has right pain behind her nipple and is unchanged since her biopsy 9 years ago. Recommend clinical evaluation and if it is deemed clinically significant or new symptoms a diagnostic workup can be ordered and performed. OVERALL ASSESSMENT: BI-RADS 1 - Negative RECOMMENDATION: 1 year F/U Electronically signed by: Ean Downing DO 08/29/2024 02:20 PM EST RP [...] OV> 08/23/24 1011 DD/ 9 TD/TT: 08/17/24929 Director Of Kids: Naomi Bocanegra MD IMG BI PROCEDURES Bobby lily Result - Final * Hepatitis C Antibody with Reflex to HCV, RNA, Quantitative, Real-Time PCR (12/08/2023 8:01 AM EDT) Hepatitis C Antibody Nonreactive Nonreactive [facility] Comment:Antibodies to HCV no t detected; does not exclude early acuteHCV infection. Blood Venous blood specimen / Unknown 12/08/2023 8:01 AM EDT 12/08/2023 11:17 AM EDT us Naomi Bocanegra MD LAB BLOOD ORDERABLES Final Result Performing Organization Address [facility]/ZIP Co de Phone Number [facility] [address] [place] [phone] * HIV-1/2 Antigen and Antibodies, Fourth Generation, with Reflexes (12/08/2023 8:01 AM EDT) HIV AB/AG Nonreactive Nonreactive [facility] Comment:HIV-1 p24 Ag and/or HIV-1/HIV-2 Ab not detected.A test result that is nonreactive does not exclude thepossibility of exposure to or infection with HIV-1 and/orHIV-2. Nonreactive results in this assay for individualswith prior exposure to HIV-1 and/or HIV-2 may be due toantigen and antibody levels that are below the limit ofdetection of this assay.The Sequence HIV Ag/Ab Combo assay result andsupplemental assay results should be interpreted inconjunction with the patient's clinical presentation,history and other laboratory results. If the results areinconsistent with clinical evidence, additional testing issuggested to confirm the result. Blood Venous blood specimen / Unknown 12/08/2023 8:01 AM EDT 12/08/2023 11:17 AM EDT us Naomi Bocanegra MD LAB BLOOD ORDERABLES Final Result Performing Organization Address [facility]/ZIP Co de Phone Number [facility] [address] [place] [phone] * (ABNORMAL) Lipid Panel, Standard (12/08/2023 8:01 AM EDT) Triglycerides 144 <150 mg/dL [facility] Comment:Desirable Triglyceri de: less than 150 mg/dLBorderline High Triglyceride 150-199 mg/dLHigh Triglyceride: 200-499 mg/dLVery High Triglyceride: greater than or equal to 5OO mg/dL Cholesterol 179 <200 mg/dL [facility] Comment:Desirable Cholestero l: less than 200 mg/dLBorderline High Cholesterol: 200-239 mg/dLHigh Cholesterol: greater than 239 mg/dL LDL Cholesterol Calculated 117(H) <100 mg/dL [facility] Comment:Desirable LDL: less than 100 mg/dLNear Optimal/Above Optimal LDL: 110- 129 mg/dLBorderline High LDL: 130-159 mg/dLHigh LDL: 160-189 mg/dLVery High LDL: greater than or equal to 190 mg/dL HDL Cholesterol 34(L) >40 mg/dL [facility] Comment:Desirable HDL: great er than 40 mg/dL Note: This HDL assay may give artificially low results in patients with liver disease. Blood Venous blood specimen / Unknown 12/08/2023 8:01 AM EDT 12/08/2023 11:17 AM EDT us Naomi Bocanegra MD LAB BLOOD ORDERABLES Final Result [facility] [address] [place] [address] [phone] from Last 3 Months or Most Recently Relevant to Health Maintenance Insurance [facility] C3 HSN PARTIAL Care Teams Boat Detailer Relationship Specialty Start Date End Date Naomi Alfonso MD [address] [place] [phone] PCP - General Family Medicine 06/19/18
--- OUTSIDE RECORDS SUMMARY | 2025-05-09 09:18 | XMS_ITS | Encounter Summary ---
Author Organization [employer] Address [address] [facility] [address] [place] [address] Care Team Providers Care Car Whacker Name Role Phone Naomi Alfonso MD Primary Care Provide r Encounter Details Date Type Department Care Team (Late st Contact Info) Description 07/08/2023 Abstract [facility] MEDICINE [address] [place], [place] [phone] Naoim Alfonso MD [address] [place], [place] [phone] Social History Tobacco Use Types Packs/Day Years [...] Info) Description 06/05/2025 9:00 AM EDT Telemedicine [facility] MEDICINE [address] [place], [place] [phone] Naomi Alfonso MD [address] [place] [address] documented as of this encounter Visit Diagnoses Not on filedocumented in this encounter Care Teams Car Whacker Relationship Specialty Start Date End Date Naomi Alfonso MD [address] [place] [address] [phone] PCP - General Family Medicine 06/19/18 documented as of this encounter
--- OUTSIDE RECORDS SUMMARY | 2025-05-09 09:18 | XMS_ITS | Encounter Summary ---
Author Organization [employer] Address [address] [facility] 7t [place] [address] Care Team Providers Care Fractionation Supervisor Name Role Phone Naomi Alfonso MD Primary Care Provide r Reason for Visit * Reason Onset Date Comments Nurse Triage 04/11/2025 Encounter Details Date Type Department Care Team ([facility] st Contact Info) Description 04/11/2025 Telephone [facility] MEDICINE [address] [place], [place] [phone] Naomi Alfonso MD [address] [place], [place] [phone] Nurse Triage Social History Tobacco Use Types [...] to Naomi Keita to triage below at [phone]. Reports that whenis on an airplane as [...] 06/05/2025 9:00 AM Naomi Bocanegra MD MEDICINE [facility] Insurance verified as active per Real Time Eligibility in [facility]. Video visit offer not recorded Positive Triage [...] going to fall off. Contact pt at [phone] documented in this encounter Plan of Treatment Upcoming Encounters Date Type Department Care Team (Late st Contact Info) Description 06/05/2025 9:00 AM EDT Telemedicine [facility] MEDICINE [address] [place] [phone] Naomi Alfonso MD [address] [place] [phone] documented as of this encounter Visit Diagnoses Not on filedocumented in this encounter Care Teams Fractionation Supervisor Relationship Specialty Start Date End Date Naomi Alfonso MD [address] [place] [phone] PCP - General Family Medicine 06/19/18 documented as of this encounter
--- OUTSIDE RECORDS SUMMARY | 2025-05-09 09:18 | XMS_ITS | Encounter Summary ---
Author Organization [employer] Address [address] [place] [address] Care Team Providers Care Bin Piler Name Role Phone Naomi Alfonso MD Primary Care Provide r Encounter Details Date Type Department Care Team (Late st Contact Info) Description 07/06/2023 Abstract [facility] MEDICINE [address] [place], [place] [phone] Naomi Alfonso MD [address] [place], [place] [phone] Social History Tobacco Use Types Packs/Day Years [...] Info) Description 06/05/2025 9:00 AM EDT Telemedicine [facility] MEDICINE [address] [place], [place] [phone] Naomi Alfonso MD [address] [place] [address] documented as of this encounter Visit Diagnoses Not on filedocumented in this encounter Care Teams Bin Piler Relationship Specialty Start Date End Date Naomi Alfonso MD [address] [place] [address] [phone] PCP - General Family Medicine 06/19/18 documented as of this encounter
[2025-05-09 11:27] LABS: MANUAL DIFF FLAG NO
[2025-05-09 11:45] LABS: Hematocrit 36.2 % (37.0-47.0); Hemoglobin 11.8 g/dl (12.0-16.0); Imm Gran Abs Auto 0.02 X10*3/uL (0.00-0.03); Imm Gran Pct Auto 0.3 % (0.0-0.4); Lymphocytes Absolute Auto 2.1 X10*3/uL (1.2-4.9); Mean Corpuscular HGB Conc 32.6 g/dl (31.0-35.0); Mean Corpuscular Hemoglobin 27.1 pg (27.0-33.0); Mean Corpuscular Volume 83.0 fL (80.0-98.0); NRBC Abs Auto 0.000 X10*3/uL (0.0-0.012); NRBC Pct Auto 0.0 /100WBC (0.0-0.2); Platelet Count 248 X10*3/uL (160-400); Red Blood Count 4.36 X10*6/uL (4.20-5.50); White Blood Count 7.5 X10*3/uL (4.8-10.8)
[2025-05-09 12:05] LABS: Alanine Aminotransferase 16 U/L (0-31); Albumin Level 3.9 g/dL (3.5-5.0); Alkaline Phosphatase 67 U/L (39-117); Anion Gap 9 (12-20); Aspartate Amino Transferase 22 U/L (5-31); Blood Urea Nitrogen 14 mg/dL (9-16); Calcium 8.8 mg/dL (8.4-10.2); Carbon Dioxide 27 mmol/L (22-29); Chloride 106 mmol/L (96-108); Cholesterol 181 mg/dL (<200); Estimated Glomerular Filt Rate > 60; HDL Cholesterol 32 mg/dL (>40); Potassium 4.2 mmol/L (3.3-5.1); Sodium 138 mmol/L (135-145); Total Protein 7.1 g/dL (6.5-8.0); Triglycerides 146 mg/dL (<150)
[2025-05-09 12:29] LABS: Hemoglobin A1C 195.1963 umol/L; Total Hemoglobin (HGBA1C) 5118.7109 umol/L
[2025-05-09 12:44] LABS: HIV Num 1 0.07 S/CO (0.00-0.99); ~HepC Num1 0.15 S/CO (0.00-0.79); ~Hepatitis C Antibody Nonreactive (Nonreactive)
== END 2025-05-09 08:38 | disposition home or self-care (01) ==
LOC: HO.HHCL 08:37
PROVIDERS: PCP Internal Medicine; Visit Provider Internal Medicine
DX: Z00.00 Encounter for general adult medical examination without abnormal findings (principal); Z11.4 Encounter for screening for human immunodeficiency virus [HIV]; Z11.59 Encounter for screening for other viral diseases
CPT/HCPCS: 36415; 80053; 80061; 82306; 83036; 84443; 85025; 86803; 87389

== ENCOUNTER 2025-05-21 10:00 | Outpatient (AMB) | payer MEDICAID, SELFPAY ==
[2025-05-21 10:05] VITALS: BMI 39.5
--- NOTE | 2025-05-21 10:05 | MHC.OFFVIS ---
Vital Signs 05/21/25 10:05 Height 5 ft 1 in Weight 209 lb BMI 39.5 Intake Visit Reasons: Ultra sound follow up Intake Note: here to review ultrasound Information Interpreted: non-clinical & clinical Laser/Electro Optics Technician: Laser/Electro Optics Technician Present Accompanied by: Self / Same As Patient Allergies No Known Allergies Allergy (Verified 01/14/25 14:52) Medication List - Last Reconciled 05/21/25 by Ami Valera LPN albuterol sulfate 90 mcg/actuation (Ventolin HFA) 2 puffs inhalation QID PRN cholecalciferol (vitamin D3) 50 mcg PO DAILY fluticasone furoate 100 mcg/actuation (Arnuity Ellipta) 1 inh inhalation QAM Is last menstrual period known: Yes Last menstrual period: 04/18/25 Post menopausal: No Patient : No Do you need a note to return to daycare/school/sports/work: No HPI Comments Details: Patient is here today for a follow up pelvic ultrasound, history of fibroids. Hysteroscopy in January with polyp removal. She reports a last cycle was heavier 3/5 days. She does not recall the prior 2 cycle history. [facility] Medical History Abnormal Pap smear of cervix Fibroid Ovarian cyst Ectopic Abnormal uterine bleeding (AUB) Asthma Surgical History Tubal ligation status History of carpal tunnel surgery of left wrist Family History Father No problems noted. Mother Stroke Social History Alcohol intake: never Patient Tobacco Use Status: Never used Tobacco Patient : No Current occupational status: unemployed Current occupation: right handed Female Reproductive History Menstrual Date of last menstrual period: 04/18/25 control method: permanent sterilization and cervical cap Total pregnancies: 3 Number of Living Children: 3 Review of Systems Const All systems reviewed & are unremarkable except as noted in HPI and below Endo Reports no additional complaints Physical Exam Vital Signs: BMI result Body Mass Index 39.5 Const General: cooperative, healthy appearing and no acute distress Psych Appearance: well kempt Attitude: cooperative Thought process: Normal thought process present Results Reviewed Results Reviewed: [address] [address] Ultrasound Report Signed Patient: Naomi Chavira MR#: [id number] : 1980 Acct:[id number] Age/Sex: 44 / F ADM Date: 05/03/25 Loc: HO.US Attending Dr: Marah Das CNM Ordering Physician: Marah Das CNM Date of Service: 05/03/25 Procedure(s): US pelvic and transvaginal Accession Number(s): [id number] cc: Naomi Alfonso MD; Marah Das CNM~ 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 TECHNIQUE: Ultrasound of the pelvis is performed using both transabdominal and transvaginal transducers along with Doppler. Transvaginal imaging is performed due to inadequate visualization transabdominally. FINDINGS: Uterus: The uterus is anteverted and measures 10.2 x 4.4 x 5.3 cm. The double wall endometrial thickness is 13 mm. The uterus is smooth in contour and has normal myometrial echogenicity. Uterine leiomyomas demonstrated on prior ultrasound are not visualized on the current study. Adnexa: Both ovaries are visualized. There is normal color flow to the adnexa. There is no ovarian torsion. There is no pelvic ascites or fluid collection. Right ovary measures 2.4 x 1.6 x 2.1 cm. Left ovary measures 2.7 x 1.3 x 1.6 cm. US/US pelvic and transvaginal IMPRESSION: Unremarkable. Previously demonstrated uterine leiomyomas are not clearly visualized on the current study. Electronically signed by: Bartolo Williamson MD 05/03/2025 04:06 PM EDT Dictated By: Bartolo Williamson MD Signed By: <Electronically signed by Bartolo Williamson MD in OV> 05/03/25 1606 DD/ 1519 TD/TT: 05/03/25 1527 Hairspring Assembler: Assessment & Plan Assessment & Plan (1) Uterine myoma: Code(s): D25.9 - Leiomyoma of uterus, unspecified Category: Medical Qualifiers: Uterine leiomyoma location: unspecified location Qualified Code(s): D25.9 - Leiomyoma of uterus, unspecified Plan Discussed: Ultrasound findings-Unremarkable. Previously demonstrated uterine leiomyomas are not clearly visualized on the current study. Plan follow up six-month. Follow up pending results. Discuss cycle control including Mirena IUD, prefers to observe for now. Monitor menstrual cycles, report any unscheduled bleeding, bleeding episodes <24 days apart or heavy/prolonged menstrual bleeding. Call the office for a follow up for any concerns. AG in 10/2025. The patient expressed understanding and agreement with the plan of care. All of her questions and concerns were addressed to the best of my ability. This note is constructed using voice recognition software. While every effort has been made to ensure accuracy, intelligence operations specialist errors may have been included. Orders: Orders US pelvic and transvaginal 11/11/25 D25.9 - Leiomyoma of uterus, unspecified Coding Level of Care Code Est Pt Level 3 (99411) Diagnoses Uterine leiomyoma, unspecified location D25.9 Uterine leiomyoma location: unspecified location
--- OUTSIDE RECORDS SUMMARY | 2025-05-21 11:44 | XMS_ITS | Clinical Summary ---
Author Organization [facility] Address [address] [facility] [address] [place] [address] Phone Care Team Providers Care Lining Finisher Name Role Phone Unavailable Primary Care Provider [...] age to complete this topic [place]
--- OUTSIDE RECORDS SUMMARY | 2025-05-21 11:44 | XMS_ITS | Encounter Summary ---
Author Organization [employer] Address [address] [facility] [address] [place] [address] Care Team Providers Care Aerospace Technician Name Role Phone Naomi Alfonso MD Primary Care Provide r Encounter Details Date Type Department Care Team (Late st Contact Info) Description 07/08/2023 Abstract [facility] MEDICINE [address] [place], [place] [phone] Naomi Alfonso MD [address] [place], [place] [phone] Social History Tobacco Use Types Packs/Day Years [...] Info) Description 06/05/2025 9:00 AM EDT Telemedicine [facility] MEDICINE [address] [place], [place] [phone] Naomi Alfonso MD [address] [place] [address] documented as of this encounter Visit Diagnoses Not on filedocumented in this encounter Care Teams Aerospace Technician Relationship Specialty Start Date End Date Naomi Alfonso MD [address] [place] [address] [phone] PCP - General Family Medicine 06/19/18 documented as of this encounter
--- OUTSIDE RECORDS SUMMARY | 2025-05-21 11:44 | XMS_ITS | Encounter Summary ---
Author Organization [employer] Address [address] [place] [address] Care Team Providers Care Director Of Student Financial Aid Name Role Phone Naomi Alfonso MD Primary Care Provide r Encounter Details Date Type Department Care Team (Late st Contact Info) Description 07/06/2023 Abstract [facility] MEDICINE [address] [place], [place] [phone] Naomi Alfonso MD [address] [place], [place] [phone] Social History Tobacco Use Types Packs/Day Years [...] Info) Description 06/05/2025 9:00 AM EDT Telemedicine [facility] MEDICINE [address] [place], [place] [phone] Naomi Alfonso MD [address] [place] [address] documented as of this encounter Visit Diagnoses Not on filedocumented in this encounter Care Teams Director Of Student Financial Aid Relationship Specialty Start Date End Date Naomi Alfonso MD [address] [place] [address] [phone] PCP - General Family Medicine 06/19/18 documented as of this encounter
--- OUTSIDE RECORDS SUMMARY | 2025-05-21 11:44 | XMS_ITS | Encounter Summary ---
Author Organization [employer] Address [address] [facility] [address] [place] [address] Care Team Providers Care Event Operations Manager Name Role Phone Naomi Alfonso MD Primary Care Provide r Reason for Visit * Reason Onset Date Comments Nurse Triage 04/11/2025 Encounter Details Date Type Department Care Team ([facility] st Contact Info) Description 04/11/2025 Telephone [facility] MEDICINE [address] [place], [place] [phone] Naomi Alfonso MD [address] [place], [place] [phone] Nurse Triage Social History Tobacco Use Types [...] to Naomi Keita to triage below at [phone]. Reports that whenis on an airplane as [...] 06/05/2025 9:00 AM Naomi Bocanegra MD MEDICINE [facility] Insurance verified as active per Real Time Eligibility in [facility]. Video visit offer not recorded Positive Triage [...] going to fall off. Contact pt at [phone] documented in this encounter Plan of Treatment Upcoming Encounters Date Type Department Care Team (Late st Contact Info) Description 06/05/2025 9:00 AM EDT Telemedicine [facility] MEDICINE [address] [place] [phone] Naomi Alfonso MD [address] [place] [phone] documented as of this encounter Visit Diagnoses Not on filedocumented in this encounter Care Teams Event Operations Manager Relationship Specialty Start Date End Date Naomi Alfonso MD [address] [place] [phone] PCP - General Family Medicine 06/19/18 documented as of this encounter
--- OUTSIDE RECORDS SUMMARY | 2025-05-21 11:45 | XMS_ITS | Encounter Summary ---
Author Organization [employer] Address [address] [facility] [address] [place] [address] Care Team Providers Care Tow Driver Name Role Phone Naomi Alfonso MD Primary Care Provide r Encounter Details Date Type Department Care Team ([facility] Contact Info) Description 02/08/2023 Telephone [facility] PEDS [address] [place], [place] [phone] Naomi Alfonso MD [address] [place] [address] Social History Tobacco Use Types Packs/Day Years [...] Info) Description 06/05/2025 9:00 AM EDT Telemedicine [facility] MEDICINE [address] [place] [address] Naomi Alfonso MD [address] [place], [place] [phone] documented as of this encounter Visit Diagnoses Not on filedocumented in this encounter Care Teams Tow Driver Relationship Specialty Start Date End Date Naomi Alfonso MD [address] [place] [phone] PCP - General Family Medicine 06/19/18 documented as of this encounter
--- OUTSIDE RECORDS SUMMARY | 2025-05-21 11:45 | XMS_ITS | Clinical Summary ---
Author Organization [employer] Address [address] [place] [address] 7t [place] [address] Care Team Providers Care Perioperative Manager Name Role Phone Naomi Alfonso MD [...] are persisting or worsening we will consider [facility] referral and medications Encounter for [...] Department Care Team Description 05/03/2025 Orders Only [facility] External Provider, [facility] 04/11/2025 Telephone [facility] [address] [place] [address] Naomi Alfonso MD Nurse Triage 03/20/2025 Telephone [facility] [address] [place] [address] Naomi Alfonso MD No Show 03/19/2025 Telephone [facility] [address] [place] [address] Naomi Alfonso MD chart prep 03/11/2025 Patient Outreach [facility] [address] [place] [address] Naomi Alfonso MD Pre-visit Planning ([facility] screening completed on 01/15/2025) from Last 3 [...] 06/05/2025 9:00 AM EDT Telemedicine [facility] [address] [place] [address] Naomi Alfonso MD [address] [place] [address] Health Maintenance Due Date Last Done Comments CT Colonography 1980 Colonoscopy 1978 Colorectal Cancer Screening 1978 FIT DNA/Cologuard 1978 FIT 1978 FOBT 1978 Sigmoidoscopy 1980 Disability Screening 1978 Alcohol/Substance Use Screening 1990 Family Planning (PISQ) 1993 Depression Screening 10/28/2024 10/28/2023, 10/28/19 24 COVID-19 Vaccine ( season) 2025 08/05/2021, 06/17/2021 Influenza Vaccine (#1) 2025 10/03/2012 Tobacco Screening 06/12/2025 06/12/2024 Mammogram 08/17/2025 08/17/2024, 10/17/2019 SDOH Screening 01/15/2026 01/15/2025 Pap Smear 10/18/2027 10/18/2024 Zoster Vaccines (1 of 2) 2028 Cervical Cancer Screening 10/18/2029 HPV/Cotest 10/18/2029 10/18/2024, 10/04/2019 Lipid Panel 05/09/2030 05/09/2025, 11/11, 01/13/2023, Additional history exists DTaP/Tdap/Td Vaccines (3 - Td or Tdap) 01/21/2035 01/21/2025, 04/04/2012 RSV Patients and Patients Aged 60 years or older (1 - 1-dose 75+ series) 2053 Hepatitis B Vaccines Completed 02/09/2013, 11/28/2012, 10/03/2012 Pneumococcal Vaccine: Pediatrics (0 to 5 Years) and At-Risk Patients (6 to 49) Years Completed 01/21/2025 HIV Screening Completed 05/09/2025, 12/08/2023 Hepatitis C Screening Completed 05/09/2025, 024 HIB Vaccines Aged Out No longer eligi [...] Procedure Name Priority Date/Time Associated Diagnosis Comments TSH W/REFLEX TO FT4 Routine 05/09/2025 8 :48 AM EDT Encounter for preventive health examination VITAMIN D,25-OH,TOTAL,IA Routine 05/09/2025 8:48 AM EDT Encounter for preventive health examination LIPID PANEL, STANDARD Routine 05/09/2025 8:48 AM EDT Encounter for preventive health examination HEPATITIS C AB W/REFL TO HCV RNA, QN, PCR Routine 05/09/2025 8:48 AM EDT Encounter for preventive health examination HIV 1/2 ANTIGEN/ANTIBODY, FOURTH GENERATION W/RFL Routine 05/09/2025 8:48 AM EDT Encounter for preventive health examination HEMOGLOBIN A1C Routine 05/09/2025 8:48 AM EDT Encounter for preventive health examination COMPREHENSIVE METABOLIC PANEL Routine 05/09/2025 8:48 AM EDT Encounter for preventive health examination CBC WITH AUTO DIFFERENTIAL Routine 05/09/2025 8:48 AM EDT Encounter for preventive health examination US PELVIS TRANSVAGINAL Routine 3:19 PM EDT HPV DNA, LOW/HIGH RISK Routine 10:01 AM EST PAP SMEAR Routine 10/18/2024 10:01 AM EST BI MAMMOGRAM SCREENING TOMOSYNTHESIS BILATERAL Routine 08/17/2024 9:00 AM EST from Last 3 Months or Most Recently Relevant to Health Maintenance Results * Vitamin D, 25-Hydroxy, Total, Immunoassay (05/09/2025 8:48 AM EDT) Vitamin D 25-OH Total 37.1 >30 ng/mL [facility] Comment: Health Based Reference Values*< 20 ng/mL Qexekrtle55-47 ng/mL Insufficient> 30 ng/mL Sufficient*Harvey GARCIA. N Engl J Med. 2007;357:266-280There is no well-established upper level of normal vitamin Dlevels. Some laboratories use 50 ng/mL as an upper limit ofnormal. However, toxicity is patient-dependent and may occurat any level. Careful correlation with the patient'spresentation is necessary and, if there is concern forvitamin D toxicity, treatment should be consideredirrespective of the serum level.Care must be taken in interpreting Vitamin D results fromdifferent laboratories and methodologies. Published datademonstrated that results from patients undergoinghemodialysis may show a negative bias when tested withvarious automated 25-OH vitamin D assays when compared toLC-MS/MS.When testing samples from patients whose predominant form ofVitamin D is Vitamin D2, such as patients receiving VitaminD2 supplementation, results that are subtherapeutic shouldbe confirmed with another method such as LC-MS/MS. Blood Venous blood specimen / Unknown 05/09/2025 8:48 AM EDT 05/09/2025 11:28 AM EDT Naomi Bocanegra MD LAB BLOOD ORDERABLES Final Result Performing Organization Address [facility]/ZIP Co de Phone Number [facility] [address] [place] [phone] * TSH with Reflex to Free T4 (05/09/2025 8:48 AM EDT) TSH reflex Free T4 2.02 0.32 - 4.0 uIU/mL [facility] Blood Venous blood specimen / Unknown 05/09/2025 8:48 AM EDT 05/09/2025 11:28 AM EDT us Naomi Bocanegra MD LAB BLOOD ORDERABLES Final Result Performing Organization Address City/[facility]/ZIP Co de Phone Number [facility] [address] [place] [phone] * (ABNORMAL) CBC auto differential (05/09/2025 8:48 AM EDT) White Blood Count 7.5 4.8 - 10.8 X10*3/uL [facility] Red Blood Count 4.36 4.20 - 5.50 X10*6/uL [facility] Hemoglobin 11.8(L) 12.0 - 16.0 g/dl [facility] Hematocrit 36.2(L) 37.0 - 47.0 % [facility] Mean Corpuscular Volume 83.0 80.0 - 98.0 fL [facility] Mean Corpuscular Hemoglobin 27.1 27.0 - 33.0 pg [facility] Mean Corpuscular HGB Conc 32.6 31.0 - 35.0 g/dl [facility] Red Cell Distribution Width 13.5 11.0 - 16.0 % [facility] Platelet Count 248 160 - 400 X10*3/uL [facility] Mean Platelet Volume 11.4 9.4 - 12.3 fL [facility] Neutrophils Percent Auto 60.5 45 - 73 % [facility] Imm Gran Pct Auto 0.3 0.0 - 0.4 % [facility] Lymphocytes Percent Auto 28.3 20 - 40 % [facility] Monocytes Percent Auto 5.2 2 - 11 % [facility] Eosinophils Percent Auto 5.2(H) 0 - 4 % [facility] Basophils Percent Auto 0.5 0 - 2 % [facility] NRBC Pct Auto 0.0 0.0 - 0.2 /100WBC [facility] Neutrophils Absolute Auto 4.5 2.0 - 8.3 x10*3/uL [facility] Imm Gran Abs Auto 0.02 0.00 - 0.03 X10*3/uL [facility] Lymphocytes Absolute Auto 2.1 1.2 - 4.9 X10*3/uL [facility] Monocytes Absolute Auto 0.4 0.1 - 1.2 X10*3/uL [facility] Eosinophils Absolute Auto 0.4 0.0 - 0.4 X10*3/uL [facility] Basophils Absolute Auto 0.0 0.0 - 0.2 X10*3/uL [facility] NRBC Abs Auto 0.000 0.0 - 0.012 X10*3/uL [facility] Blood Venous blood specimen / Unknown 05/09/2025 8:48 AM EDT 05/09/2025 11:15 AM EDT Naomi Bocanegra MD LAB BLOOD ORDERABLES Final Result Performing Organization Address [facility] Co de Phone Number [facility] [address] [place] [phone] * Hepatitis C Antibody with Reflex to HCV, RNA, Quantitative, Real-Time PCR (05/09/2025 8:48 AM EDT) Pathologist [facility] Hepatitis C Antibody Nonreactive Nonreactive [facility] Comment:Antibodies to HCV no t detected; does not exclude early acuteHCV infection. Blood Venous blood specimen / Unknown 05/09/2025 8:48 AM EDT 05/09/2025 11:28 AM EDT Naomi Bocanegra MD LAB BLOOD ORDERABLES Final Result Performing Organization Address [facility] de Phone Number [facility] [address] [place] [phone] * HIV-1/2 Antigen and Antibodies, Fourth Generation, with Reflexes (05/09/2025 8:48 AM EDT) [facility] HIV AB/AG Nonreactive Nonreactive [facility] Comment:HIV-1 p24 Ag and/or HIV-1/HIV-2 Ab not detected.A test result that is nonreactive does not exclude thepossibility of exposure to or infection with HIV-1 and/orHIV-2. Nonreactive results in this assay for individualswith prior exposure to HIV-1 and/or HIV-2 may be due toantigen and antibody levels that are below the limit ofdetection of this assay.[employer] HIV Ag/Ab Combo assay result andsupplemental assay results should be interpreted inconjunction with the patient's clinical presentation,history and other laboratory results. If the results areinconsistent with clinical evidence, additional testing issuggested to confirm the result. Blood Venous blood specimen / Unknown 05/09/2025 8:48 AM EDT 05/09/2025 11:28 AM EDT us Naomi Bocanegra MD LAB BLOOD ORDERABLES Final Result Performing Organization Address [facility]/ZIP Co de Phone Number [facility] [address] [place] [phone] * Hemoglobin A1c (05/09/2025 8:48 AM EDT) Hemoglobin A1c 5.6 <6.0 % [facility] Comment:Hemoglobin A1C Refer ence Range Adults: 4.8 - 6.0 % Non diabetic: < 6.0 % Goal: < 7.0 %Additional Action Suggested: > 8.0 %Note: Hemoglobin A1c results are invalid for patients with abnormal amounts of HbF. Blood transfusions may impact the HbA1c concentration in the patient sample. Estimated Average Glucose 114 mg/dL [facility] Comment:eAG = Estimated ave rage glucose which is %A1C expressed asaverage glucose, using the formula of the G1Z-VzdzigpXscrfdj Glucose study (ADAG), Diabetes Care, Vol.31,#8,Apr. 2007 Blood Venous blood specimen / Unknown 05/09/2025 8:48 AM EDT 05/09/2025 11:15 AM EDT us Naomi Bocanegra MD LAB BLOOD ORDERABLES Final Result Performing Organization Address [facility]/ZIP Co de Phone Number [facility] [address] [place] [phone] * (ABNORMAL) Lipid Panel, Standard (05/09/2025 8:48 AM EDT) Triglycerides 146 <150 mg/dL [facility] Comment:Desirable Triglyceri de: less than 150 mg/dLBorderline High Triglyceride 150-199 mg/dLHigh Triglyceride: 200-499 mg/dLVery High Triglyceride: greater than or equal to 5OO mg/dL Cholesterol 181 <200 mg/dL [facility] Comment:Desirable Cholestero l: less than 200 mg/dLBorderline High Cholesterol: 200-239 mg/dLHigh Cholesterol: greater than 239 mg/dL LDL Cholesterol Calculated 120(H) <100 mg/dL [facility] Comment:Desirable LDL: less than 100 mg/dLNear Optimal/Above Optimal LDL: 110- 129 mg/dLBorderline High LDL: 130-159 mg/dLHigh LDL: 160-189 mg/dLVery High LDL: greater than or equal to 190 mg/dL HDL Cholesterol 32(L) >40 mg/dL [facility] Comment:Desirable HDL: great er than 40 mg/dL Note: This HDL assay may give artificially low results in patients with liver disease. Blood Venous blood specimen / Unknown 05/09/2025 8:48 AM EDT 05/09/2025 11:28 AM EDT us Naomi Bocanegra MD LAB BLOOD ORDERABLES Final Result [facility] [address] [place] [address] [phone] * (ABNORMAL) Comprehensive Metabolic Panel (05/09/2025 8:48 AM EDT) Sodium 138 135 - 145 mmol/L [facility] Potassium 4.2 3.3 - 5.1 mmol/L [facility] Chloride 106 96 - 108 mmol/L [facility] Carbon Dioxide 27 22 - 29 mmol/L [facility] Anion Gap 9(L) 12 - 20 [facility] Urea Nitrogen (BUN) 14 9 - 16 mg/dL [facility] Creatinine, Serum 0.67 0.5 - 1.4 mg/dL [facility] Estimated Glomerular Filt Rate >60 [facility] Comment:Chronic Kidney Disea se: Estimated GFR < 60 mL/min/1.56o4Orcysk Kidney Disease: Estimated GFR < 15 mL/min/1.73m2 Glucose 98 60 - 115 mg/dL [facility] Calcium 8.8 8.4 - 10.2 mg/dL [facility] Bilirubin, Total 0.4 0.0 - 1.0 mg/dL [facility] Aspartate Amino Transferase 22 5 - 31 U/L [facility] Alanine Aminotransferase 16 0 - 31 U/L [facility] Total Protein 7.1 6.5 - 8.0 g/dL [facility] Albumin Level 3.9 3.5 - 5.0 g/dL [facility] Alkaline Phosphatase 67 39 - 117 U/L [facility] Blood Venous blood specimen / Unknown 05/09/2025 8:48 AM EDT 05/09/2025 11:28 AM EDT us Naomi Bocanegra MD LAB BLOOD ORDERABLES Final Result Performing Organization Address City/State/[facility] Co de Phone Number [facility] [address] [place] [address] [phone] * US Pelvis Transvaginal (05/03/2025 3:19 PM EDT) Anatomical Region Laterality Modality Pelvis Ultrasound 05/03/2025 3:19 PM EDT Narrative 05/03/2025 4:09 PM EDT [address] [address] Ultrasound Report Signed Patient: Naomi Chavira MR#: [id number] : 1980 Acct:[id number] Age/Sex: 44 / F ADM Date: 05/03/25 Loc: HO.US Attending Dr: Marah Das CNM Ordering Physician: Marah Das CNM Date of Service: 05/03/25 Procedure(s): US pelvic and transvaginal Accession Number(s): [id number] cc: Naomi Alfonso MD; Marah Das CNM [...] 05/03/25 1606 DD/ 1519 TD/TT: 05/03/25 1527 Wool Classer: Procedure Note Donotuseinterpreter, Image - 05/03/2025 [place] [address] Ultrasound Report Signed Patient: Naomi Chavira MR#: [id number] : 1980Acct:[id number] Age/Sex: 44 / FADM Date: 05/03/25 Loc: HO.US Attending Dr: Marah Das CNM Ordering Physician: Marah Das CNM Date of Service: 05/03/25 Procedure(s): US pelvic and transvaginal Accession Number(s): [id number] cc: Naomi Alfonso MD; Marah Das CNM [...] Bartolo Williamson MD 05/03/2025 04:06 PM EDT Dictated By: Bartolo Williamson MD Signed By: <Electronically signed by Bartolo Williamson MD in OV> 05/03/25 1606 DD/ 1519 TD/TT: 05/03/25 1527 Wool Classer: [facility] External Provider IMG US PROCEDURES Final Result * (ABNORMAL) HPV DNA, Low/High Risk (10/18/2024 10:01 AM EST) HPV High Risk Positive(A) Negative [facility] HPV Genotype 16 Negative Negative [facility] HPV Genotype 18 Negative Negative [facility] Comment:HPV testing performe d at (CLIA#[id number]), [address] [place] [address].Testing for HPV was performed using the [employer]system. The presence of HPV in the female [...] Provider LAB BLOOD ORDERAB LES Final Result [facility] [address] [place] [phone] * Pap Smear (10/18/2024 10:01 AM EST) 10/18/2024 10:0 1 AM EST 10/19/2024 7:00 AM EST Narrative [facility] - 11/01/2024 11:40 AM EST ----- ------- Name: Naomi Chavira Age/Sex: 44/F : 1980 Unit#: [id number] Attend Dr: Marah Das CNM Re10/18/24 Status: DEP REF Location: .[facility] Disch: ----- ------- SPEC : [id number] RECD: 10/19/24 STATUS: JAORCHO GRAYSON NUM: [id number] AUNDREA: 10/18/24-[address] [facility] [address]: Marah Das CNM ENTERED: 10/19/24 SP TYPE: Pap Smr OTHR DR: Naomi Alfonso MD ORDERED: Pap Smear Addendum Addendum 1 Entered: 11/01/24-113 HPV High Risk: Positive HPV Genotyping 16: [...] Received Cervix Copies To: Naomi Alfonso MD [address] [address] CONTINUED ON NEXT PAGE ----- ------- Name: Naomi Chavira Age/Sex: 44/F : 1980 Unit#: [id number] Attend Dr: Marah Das CNM Re10/18/24 Status: DEP REF Location: HO.LNP Disch: ----- ------- SPEC : [id number] RECD: 10/19/24 STATUS: JAROCHO GRAYSON NUM: [id number] AUNDREA: 10/18/24-[address]: Marah Das CNM ENTERED: 10/19/24 SP TYPE: Pap Smr OTHR DR: Naomi Alfonso MD ORDERED: Pap Smear Copies To: (Continued) Marah Das CNM [facility] [address] [place] [address] Drive [address] [place] [address] ----- ------- Signed (signature on file) Tiffanie Bonilla, [place] ([facility]) 10/28/24 1818 (signature on file) Parker Roper, [place] ([facility]) 11/01/24 1140 ----- ------- END OF REPORT Generic External Data Provider LAB CYTOLOGY ARTURO MCDOWELL Final Result [facility] [address] [place] [phone] * BI Mammogram Screening Tomosynthesis Bilateral (08/17/2024 9:00 AM EST) Anatomical Region Laterality Modality Breast Bilateral Mammography 08/17/2024 9:00 AM EST Narrative 08/23/2024 10:19 AM EST [facility] [address] [place] [address] [place] [address] Mammography Report Signed with Addenda Patient: Naomi Chavira MR#: [id number] : 1980 Acct:[id number] Age/Sex: 44 / F ADM Date: 08/17/24 Loc: HO.MAMMO Attending Dr: Naomi Bocanegra MD Ordering Physician: Naomi Alfonso MD Results: 1Negative Date of Service: 08/17/24 Follow Up: 1 Year From [facility] Mammogram Procedure(s): MM tomosynthesis screening BI Accession Number(s): [id number] cc: Naomi Alfonso MD ADDENDUM ADDENDUM #1 [...] by: Ena Downing DO 08/23/2024 10:11 AM [facility] Dictated By: Ena Downign DO Signed By: <Electronically signed by Ena Downing DO in OV> 08/23/24 1011 DD/ 0900 TD/TT: 08/17/24 0930 Wool Classer: Procedure Note Donotuseinterpreter, Image - 08/29/20[facility] [address] [place], [place] [address] Mammography Report Signed with Addenda Patient: Naomi Chavira MR#: [id number] : 1980Acct:[id number] Age/Sex: 44 / FADM Date: 08/17/24 Loc: MAMMO Attending Dr: Naomi Bocanegra MD Ordering Physician: Naomi Alfonso MDResults: 1Negative Date of Service: 08/17/24Follow Up: 1 Year From Orig ina Mammogram Procedure(s): MM tomosynthesis screening BI Accession Number(s): [id number] cc: Naomi Alfonso MD ADDENDUM ADDENDUM #1 [...] OV> 08/23/24 1011 DD/ 9 TD/TT: 08/17/24929 Wool Classer: us Naomi Bocanegra MD IMG BI PROCEDURES Bobby lily Result - Final from Last 3 Months or Most Recently Relevant to Health Maintenance Insurance [facility] C3 HSN PARTIAL Care Teams Perioperative Manager Relationship Specialty Start Date End Date Naomi Alfonso MD [address] [place] [phone] PCP - General Family Medicine 06/19/18
== END 2025-05-21 11:13 | disposition home or self-care (01) ==
PROVIDERS: PCP Internal Medicine; Visit Provider Advanced Practice Midwife
DX: D25.9 Leiomyoma of uterus, unspecified (principal)
CPT/HCPCS: 99213

== ENCOUNTER → 2025-05-21 10:00 | Outpatient (BNVA) | payer MEDICAID, SELFPAY | PROVIDERS: PCP Internal Medicine; Visit Provider Advanced Practice Midwife | DX: D25.9 Leiomyoma of uterus, unspecified (principal); N93.8 Other specified abnormal uterine and vaginal bleeding | CPT/HCPCS: 99212 ==

== ENCOUNTER 2025-07-31 08:00 | Outpatient (REF) | payer MEDICAID, SELFPAY ==
--- OUTSIDE RECORDS SUMMARY | 2025-07-31 15:31 | XMS_ITS | Encounter Summary ---
Author Organization [employer] Address [address] [place] [address] Care Team Providers Care Footwear Machinery Instructor Name Role Phone Naomi Alfonso MD Primary Care Provide r Encounter Details Date Type Department Care Team (Late st Contact Info) Description 07/06/2023 Abstract [facility] [address] [place], [place] [phone] Naomi Alfonso MD [address] [place], [place] [phone] Social History Tobacco Use Types Packs/Day Years [...] as of this encounter Plan of Treatment Not on file documented as of this encounter Visit Diagnoses Not on filedocumented in this encounter Care Teams Footwear Machinery Instructor Relationship Specialty Start Date End Date Naomi Alfonso MD [address] [place] [phone] PCP - General Family Medicine 06/19/18 documented as of this encounter
--- OUTSIDE RECORDS SUMMARY | 2025-07-31 15:31 | XMS_ITS | Encounter Summary ---
Author Organization [employer] Address [address] [place] [address] Care Team Providers Care Spreader Operator Name Role Phone Naomi Alfonso MD Primary Care Provide r Encounter Details Date Type Department Care Team (Late st Contact Info) Description 07/08/2023 Abstract [facility] [address] [place], [place] [phone] Naomi Alfonso MD [address] [place], [place] [phone] Social History Tobacco Use Types Packs/Day Years [...] on filedocumented in this encounter Care Teams Spreader Operator Relationship Specialty Start Date End Date Naomi Alfonso MD [address] [place] [phone] PCP - General Family Medicine 06/19/18 documented as of this encounter
--- OUTSIDE RECORDS SUMMARY | 2025-07-31 15:31 | XMS_ITS | Encounter Summary ---
Author Organization [employer] Address [address] [place] [address] Care Team Providers Care Experimental Physicist Name Role Phone Naomi Alfonso MD Primary Care Provide r Encounter Details Date Type Department Care Team (Late st Contact Info) Description 02/08/[address] [facility] [address] [place], [place] [phone] Naomi Alfonso MD [address] [place] [address] Social History Tobacco Use Types Packs/Day Years [...] on filedocumented in this encounter Care Teams Experimental Physicist Relationship Specialty Start Date End Date Naomi Alfonso MD [address] [place], [place] [phone] PCP - General Family Medicine 06/19/18 documented as of this encounter
--- OUTSIDE RECORDS SUMMARY | 2025-07-31 15:31 | XMS_ITS | Clinical Summary ---
Author Organization [employer] Address [address] [facility] [address] [place] [address] Care Team Providers Care Faucet Polisher Name Role Phone Naomi Alfonso MD Primary Care Provide r Allergies No known active allergies Medications fluticasone furoate (Arnuity Ellipta) 100 MCG/ACT inhalerIndicatio ns:Mild intermittent asthma with acute exacerbation Inhale 1 puff in the morning. Rinse mouth with water after use to reduce aftertaste and incidence of candidiasis. Do not swallow. 1 each 11 10/21/19 24 Active famotidine (Pepcid) 20 MG tabletIndication s:Chronic gastritis, presence of bleeding unspecified, unspecified gastritis type Take 1 tablet (20 mg) by mouth 2 times daily. 60 tablet 11 10/28/19 24 Active Vitamin D High Potency 25 MCG (1000 UT) capsuleIndicatio ns:Vitamin D3 deficiency TAKE 1 CAPSULE BY MOUTH DAILY IN THE MORNING 90 capsule 1 01/12/20 24 Active betamethasone valerate (Valisone) 0.1 % cream Apply topically if needed in the morning and at bedtime (dryness). 45 g 03/19/20 24 Active triamcinolone (Kenalog) 0.1 % cream Apply to affected area once or twice daily. Use thin layer. Do not use every day for > 2 weeks. 453 g 2 03/27/20 24 Active D3 Super Strength 50 MCG (2000 UT) capsule TAKE 1 CAPSULE BY MOUTH EVERY DAY 90 capsule 03/27/20 24 Active Semaglutide-Weig ht Management (Wegovy) 0.25 MG/0.5ML solution auto-injectorInd ications:Class 3 severe obesity due to excess calories with serious comorbidity and body mass index (BMI) of 40.0 to 44.9 in adult (HCC) Inject 0.25 mg under the skin 1 (one) time per week. 0.5 mL 06/12/20 24 Active albuterol (2.5 MG/3ML) 0.083% nebulizer solutionIndicati ons:Moderate persistent asthma without complication Take 3 mL (2.5 mg) by nebulization every 4 (four) hours if needed for wheezing. 75 mL 3 06/05/20 25 026 Active albuterol (Ventolin HFA) 108 (90 Base) MCG/ACT inhalerIndicatio ns:Moderate persistent asthma without complication INHALE 2 PUFFS BY MOUTH FOUR TIMES DAILY NEEDED 18 g 1 06/05/20 25 Active Mometasone Furoate (Asmanex HFA) 200 MCG/ACT aerosolIndicatio ns:Moderate persistent asthma without complication Inhale 0.005 Act (1 mcg) 2 times daily. 13 g 3 06/05/20 25 Active fluticasone (Flonase) 50 MCG/ACT nasal sprayIndications :Chronic frontal sinusitis Administer 1-2 sprays into each nostril Once per day. Shake gently. Before first use, prime pump. After use, clean tip and replace cap. 16 g 2 06/05/20 25 026 Active lidocaine (Lidoderm) 5 % patchIndications :Rib pain Apply 1 patch topically Once per day. Remove & discard patch within 12 hours or as directed by MD. 30 patch 06/05/20 25 Active cetirizine (ZyrTEC) 10 MG tablet Take 1 tablet (10 mg) by mouth Once per day. 90 tablet 3 06/17/20 25 026 Active azithromycin (Zithromax) 250 MG tablet Take 2 tabs PO today then 1 tab PO daily x 4 days 6 tablet 06/17/20 25 Active guaiFENesin (Mucinex) 600 MG 12 hr tablet Take 1 tablet (600 mg) by mouth if needed in the morning and at bedtime for cough or congestion. Do not crush, chew, or split. 30 tablet 06/17/20 25 026 Active Blood Pressure Monitor device Check BP daily 1 each 06/28/20 25 Active diphenhydrAMINE (BENADryl) 25 MG tablet Take 1 tablet (25 mg) by mouth every 6 (six) hours if needed for itching. 30 tablet 06/28/20 25 Active naproxen (Naprosyn) 500 MG tabletIndication s:Left wrist pain,Rib pain Take 1 tablet (500 mg) by mouth with breakfast and with evening meal. 30 tablet 06/05/20 25 025 acetaminophen (Tylenol 8 Hour) 650 MG ER tablet Take 1 tablet (650 mg) by mouth every 8 (eight) hours if needed for mild pain. Do not crush, chew, or split. 40 tablet 1 06/17/20 25 025 predniSONE (Deltasone) 20 MG tablet Take 2 tablets (40 mg) by mouth Once per day for 5 days. 10 tablet 06/28/20 25 025 Active Problems Problem Noted Date Diagnosed Date Moderate persistent asthma without complication 06/05/2025 Assessment & Plan (06/05/2025 9:41 AM EDT): Stable patient educated to avoid triggers refills for medications prescribed Chronic frontal sinusitis 06/05/2025 Assessment & Plan (06/05/2025 9:39 AM EDT): I will prescribe for patient Flonase to use every day I will put referral in to ENT as per her request Left wrist pain 06/05/2025 Assessment & Plan (06/05/2025 9:39 AM EDT): I will refer patient back to orthopedics I prescribed naproxen for pain as needed Rib pain 06/05/2025 Assessment & Plan (06/05/2025 9:40 AM EDT): I advised to apply heat on affected area I prescribed for patient naproxen 500 mg twice daily with full stomach I prescribed for patient short course of Flexeril 5 mg every 8 hours I let her know it can cause somnolence I prescribed for patient lidocaine patch to apply on affected area Seasonal allergies 01/21/2025 Anxiety with depression 01/21/2025 Assessment & Plan (01/21/2025 1:16 PM EDT): Extensive counseling done today, today she declined therapist and medications, she denies ideas of hurting herself or others I decided to follow-up with her in about 2 weeks to see how she is feeling, if the symptoms are persisting or worsening we will consider I referral and medications Encounter for screening mamm [...] Encounters Date Type Department Care Team Description 07/24/2025 3:15 PM EST Office Visit [facility] [address] [place] [phone] Naomi Alfonso MD Encounter for immunization 07/24/2025 Travel 07/23/[address] [address] Naomi Alfonso MD Chart Prep 06/28/2025 9:00 AM EDT [facility] [address] [address] Paula Hopkins MD Allergic dermatitis (Primary Dx); Elevated BP reading w/ no diagnosis of HTN 06/28/2025 Travel 06/17/2025 9:00 AM EDT Office Visit [address] [address] Ofelia Tay DO Bronchitis (Primary Dx) 06/17/2025 Travel 06/05/2025 9:00 AM EDT Telemedicine [address] [address] Naomi Alfonso MD Moderate persistent asthma without complication; Chronic frontal sinusitis; Left wrist pain; Rib pain 06/05/2025 Travel 06/04/[address] [address] Naomi Alfonso MD CHART PREP 05/29/[address] [address] Naomi Alfonso MD Results 05/03/2025 Orders Only [facility] External Provider, [facility] from Last 3 Months Immunizations Immunization Administration Dates Next Due Hep B, adult 02/09/2013,11/28/2012,10/03/2012 Influenza, Split (incl. jeremie fied surface antigen) 10/03/2012 Influenza, seasonal, injecta ble, preservative free 07/24/2025 Moderna Covid-19 Vaccine 12+ 06/17/2021 Pneumococcal Conjugate PCV 20 01/21/2025 Tdap 01/21/2025,04/04/2012 Social History Tobacco Use Types Packs/Day Years Used Date Smoking Tobacco: Never Passive Smoke Exposure: Never Smokeless Tobacco: Never Tobacco Cessation:Counseling Given: Not Answered Alcohol Use Standard Drinks/Week Comments Never 0 (1 standard drink = 0.6 oz pur e alcohol) Depression Answer Date Recorded Patient Health Questionnaire-9 Score 0 06/05/2025 Patient Health Questionnaire-9 Score 0 06/05/2025 Last PHQ-9: Questionnaire Data Not on file 0 06/05/2025 Housing Stability Answer Date Recorded What is [...] Date Recorded Patient Health Questionnaire-2 Score 0 06/05/2025 Internet Access Answer Date Recorded Internet Access [...] Sign Reading Time Taken Comments Blood Pressure 122/84 07/24/2025 3:37 PM EST Pulse 82 07/24/2025 3:37 PM EST Temperature 35 C (95 F) 07/24/2025 3:37 PM EST Respiratory Rate 16 07/24/2025 3:37 PM EST Oxygen Saturation 97% 07/24/2025 3:37 PM EST Inhaled Oxygen Concentration - - Weight 100 kg (221 lb) 07/24/2025 3:37 PM EST Height 156.2 cm (5' 1.5 ) 07/24/2025 3:37 PM EST Body Mass Index 41.08 07/24/2025 3:37 PM EST Plan of Treatment Health Maintenance Due Date Last Done Comments CT Colonography 1980 Colonoscopy 1980 Colorectal Cancer Screening 1980 FIT DNA/Cologuard 1980 FIT 1980 FOBT 1980 Sigmoidoscopy 1980 Disability Screening 1980 Family Planning (PISQ) 1993 COVID-19 Vaccine ( season) 2025 08/05/2021, 06/17/2021 Mammogram 08/17/2025 08/17/2024, 10/17/2019 SDOH Screening 01/15/2026 01/15/2025 Alcohol/Substance Use Screening 06/05/2026 06/05/2025 Depression Screening 06/05/2026 06/05/2025, 06/05/20 25 Tobacco Screening 07/24/2026 07/24/2025 Pap Smear 10/18/2027 10/18/2024 Zoster Vaccines (1 of 2) 2028 Cervical Cancer Screening 10/18/2029 HPV/Cotest 10/18/2029 10/18/2024, 10/04/2019 Lipid Panel 05/09/2030 05/09/2025, 0304/2024, 01/13/2023, Additional history exists DTaP/Tdap/Td Vaccines (3 - Td or Tdap) 01/21/2035 01/21/2025, 04/04/2012 RSV Patients and Patients Aged 60 years or older (1 - 1-dose 75+ series) 2053 Hepatitis B Vaccines Completed 02/09/2013, 11/28/2012, 10/03/2012 Pneumococcal Vaccine: Pediatrics (0 to 5 Years) and At-Risk Patients (6 to 49) Years Completed 01/21/2025 HIV Screening Completed 05/09/2025, 12/08/2023 Hepatitis C Screening Completed 05/09/2025, 024 Influenza Vaccine Completed 07/24/2025, 10/03/2012 HIB Vaccines Aged Out No longer eligi [...] Procedure Name Priority Date/Time Associated Diagnosis Comments POCT COVID-19 AG MCARTHUR ID NOW Routine 06/17/2025 9:24 AM EDT Bronchitis POCT RAPID STREP A Routine 06/17/2025 9: 24 AM EDT Bronchitis POCT INFLUENZA A (ID NOW RAPID MOLECULAR) Routine 06/17/2025 9:24 AM EDT Bronchitis POCT INFLUENZA B (ID NOW RAPID MOLECULAR) Routine 06/17/2025 9:24 AM EDT Bronchitis TSH W/REFLEX TO FT4 Routine 05/09/2025 8 [...] Recently Relevant to Health Maintenance Results * Influenza B (ID NOW Rapid Molecular) (06/17/2025 9:24 AM EDT) Influenza B Negative Negative, Indeterminate [facility] Swab 06/17/2025 9:24 AM EDT Ofelia Tay DO POINT OF CARE TEST ENTER/MEHUL T ORDERABLES Final Result [facility] [address] [place] [phone] * Influenza A (ID NOW Rapid Molecular) (06/17/2025 9:24 AM EDT) Influenza A Negative Negative, Indeterminate [facility] Swab 06/17/2025 9:24 AM EDT Ofelia Maggi DO POINT OF CARE TEST ENTER/MEHUL T ORDERABLES Final Result [facility] [address] [place] [phone] * POCT COVID-19 Ag Mcarthur ID NOW (06/17/2025 9:24 AM EDT) Coronavirus Antigen PCR Negative Negative, Indeterminate, None Detected, Invalid, Specimen unsatisfactory for evaluation, Weakly Positive, 2+ Swab 06/17/2025 9:24 AM EDT Ofelia Whitekassidy DO POINT OF CARE TEST ENTER/MEHUL T ORDERABLES Final Result * POCT rapid strep A manually resulted (06/17/2025 9:24 AM EDT) Rapid Strep A Screen Negative Negative, None Detected Swab 06/17/2025 9:24 AM EDT Ofelia Whitekassidy DO POINT OF CARE TEST ENTER/MEHUL T ORDERABLES Final Result * Vitamin D, 25-Hydroxy, Total, Immunoassay (05/09/2025 8:48 AM EDT) Pathologist [facility] Vitamin D 25-OH Total 37.1 >30 ng/mL [facility] Comment: Health Based Reference Values*< 20 ng/mL Tlossmvwy04-45 ng/mL Insufficient> 30 ng/mL Sufficient*Harvey GARCIA. N [...] BLOOD ORDERABLES Final Result Performing Organization Address [facility]/ZIP Co de Phone Number [facility] [address] [place] [phone] * TSH with Reflex to Free T4 (05/09/2025 8:48 AM EDT) Pathologist [facility] TSH reflex Free T4 2.02 0.32 - 4.0 uIU/mL [facility] Blood Venous blood specimen / Unknown 05/09/2025 8:48 AM EDT 05/09/2025 11:28 AM EDT us Naomi Bocanegra MD LAB BLOOD ORDERABLES Final Result Performing Organization Address [facility] Co de Phone Number [facility] [address] [place] [phone] * (ABNORMAL) CBC auto differential (05/09/2025 8:48 AM EDT) White Blood Count 7.5 4.8 - 10.8 X10*3/uL [facility] Red Blood Count 4.36 4.20 - 5.50 X10*6/uL [facility] Hemoglobin 11.8(L) 12.0 - 16.0 g/dl [facility] Hematocrit 36.2(L) 37.0 - 47.0 % [facility] Mean Corpuscular Volume 83.0 80.0 - 98.0 fL [facility] Mean Corpuscular Hemoglobin 27.1 27.0 - 33.0 pg [facility] Mean Corpuscular HGB Conc 32.6 31.0 - 35.0 g/dl [facility] Red Cell Distribution Width 13.5 11.0 - 16.0 % [facility] Platelet Count 248 160 - 400 X10*3/uL [facility] Mean Platelet Volume 11.4 9.4 - 12.3 fL [facility] Neutrophils Percent Auto 60.5 45 - 73 % [facility] Imm Gran Pct Auto 0.3 0.0 - 0.4 % [facility] Lymphocytes Percent Auto 28.3 20 - 40 % [facility] Monocytes Percent Auto 5.2 2 - 11 % [facility] Eosinophils Percent Auto 5.2(H) 0 - 4 % [facility] Basophils Percent Auto 0.5 0 - 2 % [facility] NRBC Pct Auto 0.0 0.0 - 0.2 /100WBC [facility] Neutrophils Absolute Auto 4.5 2.0 - 8.3 x10*3/uL [facility] Imm Gran Abs Auto 0.02 0.00 - 0.03 X10*3/uL [facility] Lymphocytes Absolute Auto 2.1 1.2 - 4.9 X10*3/uL [facility] Monocytes Absolute Auto 0.4 0.1 - 1.2 X10*3/uL [facility] Eosinophils Absolute Auto 0.4 0.0 - 0.4 X10*3/uL [facility] Basophils Absolute Auto 0.0 0.0 - 0.2 X10*3/uL [facility] NRBC Abs Auto 0.000 0.0 - 0.012 X10*3/uL [facility] Blood Venous blood specimen / Unknown 05/09/2025 8:48 AM EDT 05/09/2025 11:15 AM EDT us Naomi Bocanegra MD LAB BLOOD ORDERABLES Final Result [facility] [address] [place] [phone] * Hepatitis C Antibody with Reflex to HCV, RNA, Quantitative, Real-Time PCR (05/09/2025 8:48 AM EDT) Pathologist [facility] Hepatitis C Antibody Nonreactive Nonreactive [facility] Comment:Antibodies to HCV no t detected; does not exclude early acuteHCV infection. Blood Venous blood specimen / Unknown 05/09/2025 8:48 AM EDT 05/09/2025 11:28 AM EDT us Naomi Bocanegra MD LAB BLOOD ORDERABLES Final Result Performing Organization Address [facility] Co de Phone Number [facility] [address] [place] [phone] * HIV-1/2 Antigen and Antibodies, Fourth Generation, with Reflexes (05/09/2025 8:48 AM EDT) Pathologist [facility] HIV AB/AG Nonreactive Nonreactive [facility] Comment:HIV-1 p24 Ag and/or HIV-1/HIV-2 Ab not detected.A test result that is nonreactive does not exclude thepossibility of exposure to or infection with HIV-1 and/orHIV-2. Nonreactive results in this assay for individualswith prior exposure to HIV-1 and/or HIV-2 may be due toantigen and antibody levels that are below the limit ofdetection of this assay.The e[employer]emon[employer] HIV Ag/Ab Combo assay result andsupplemental assay results should be interpreted inconjunction with the patient's clinical presentation,history and other laboratory results. If the results areinconsistent with clinical evidence, additional testing issuggested to confirm the result. Blood Venous blood specimen / Unknown 05/09/2025 8:48 AM EDT 05/09/2025 11:28 AM EDT us Naomi Bocanegra MD LAB BLOOD ORDERABLES Final Result Performing Organization Address City/[facility]/ZIP Co de Phone Number [facility] [address] [place] [phone] * Hemoglobin A1c (05/09/2025 8:48 AM EDT) Hemoglobin A1c 5.6 <6.0 % [facility] Comment:Hemoglobin A1C Refer ence Range Adults: 4.8 - 6.0 % Non diabetic: < 6.0 % Goal: < 7.0 %Additional Action Suggested: > 8.0 %Note: Hemoglobin A1c results are invalid for patients with abnormal amounts of HbF. Blood transfusions may impact the HbA1c concentration in the patient sample. Estimated Average Glucose 114 mg/dL [facility] Comment:eAG = Estimated ave rage glucose which is %A1C expressed asaverage glucose, using the formula of the C0W-WzvsgffVaghkcl Glucose study (ADAG), Diabetes Care, Vol.31,#8,Apr. 2007 Blood Venous blood specimen / Unknown 05/09/2025 8:48 AM EDT 05/09/2025 11:15 AM EDT us Naomi Bocanegra MD LAB BLOOD ORDERABLES Final Result [facility] [address] [place] [phone] * (ABNORMAL) Lipid Panel, Standard (05/09/2025 8:48 AM EDT) Triglycerides 146 <150 mg/dL [facility] Comment:Desirable Triglyceri de: less than 150 mg/dLBorderline High Triglyceride 150-199 mg/dLHigh Triglyceride: 200-499 mg/dLVery High Triglyceride: greater than or equal to 5OO mg/dL Cholesterol 181 <200 mg/dL [facility] Comment:Desirable Cholestero l: less than 200 mg/dLBorderline High Cholesterol: 200-239 mg/dLHigh Cholesterol: greater than 239 mg/dL LDL Cholesterol Calculated 120(H) <100 mg/dL [facility] Comment:Desirable LDL: less than 100 mg/dLNear Optimal/Above Optimal LDL: 110- 129 mg/dLBorderline High LDL: 130-159 mg/dLHigh LDL: 160-189 mg/dLVery High LDL: greater than or equal to 190 mg/dL HDL Cholesterol 32(L) >40 mg/dL [facility] Comment:Desirable HDL: great er than 40 mg/dL Note: This HDL assay may give artificially low results in patients with liver disease. Blood Venous blood specimen / Unknown 05/09/2025 8:48 AM EDT 05/09/2025 11:28 AM EDT us Naomi Bocanegra MD LAB BLOOD ORDERABLES Final Result [facility] [address] [place] [phone] * (ABNORMAL) Comprehensive Metabolic Panel (05/09/2025 8:48 AM EDT) Sodium 138 135 - 145 mmol/L [facility] Potassium 4.2 3.3 - 5.1 mmol/L [facility] Chloride 106 96 - 108 mmol/L [facility] Carbon Dioxide 27 22 - 29 mmol/L [facility] Anion Gap 9(L) 12 - 20 [facility] Urea Nitrogen (BUN) 14 9 - 16 mg/dL [facility] Creatinine, Serum 0.67 0.5 - 1.4 mg/dL [facility] Estimated Glomerular Filt Rate >60 [facility] Comment:Chronic Kidney Disea se: Estimated GFR < 60 mL/min/1.63a6Acgtjk Kidney Disease: Estimated GFR < 15 mL/min/1.73m2 Glucose 98 60 - 115 mg/dL [facility] Calcium 8.8 8.4 - 10.2 mg/dL [facility] Bilirubin, Total 0.4 0.0 - 1.0 mg/dL [facility] Aspartate Amino Transferase 22 5 - 31 U/L [facility] Alanine Aminotransferase 16 0 - 31 U/L [facility] Total Protein 7.1 6.5 - 8.0 g/dL [facility] Albumin Level 3.9 3.5 - 5.0 g/dL [facility] Alkaline Phosphatase 67 39 - 117 U/L [facility] Blood Venous blood specimen / Unknown 05/09/2025 8:48 AM EDT 05/09/2025 11:28 AM EDT Naomi Bocanegra MD LAB BLOOD ORDERABLES Final Result Performing Organization Address City/State/[facility] Co de Phone Number [facility] [address] [place] [phone] * US Pelvis Transvaginal (05/03/2025 3:19 PM EDT) Anatomical Region Laterality Modality Pelvis Ultrasound 05/03/2025 3:19 PM EDT Narrative 05/03/2025 4:09 PM EDT [address] [address] Ultrasound Report Signed Patient: Naomi Chavira MR#: [id number] : 1980 Acct:[id number] Age/Sex: 44 / F ADM Date: 05/03/25 Loc: HO.US Attending Dr: Marah Das CNM Ordering Physician: Marah Das CNM Date of Service: 05/03/25 Procedure(s): US pelvic and transvaginal Accession Number(s): [id number] cc: Naomi Alfonso MD; Marah Das CNM [...] 05/03/25 1606 DD/ 1519 TD/TT: 05/03/25 1527 Shipping Inspector: Procedure Note Donotuseinterpreter, Image - 05/03/2025 [place] [address] Ultrasound Report Signed Patient: Naomi Chavira MR#: [id number] : 1980Acct:[id number] Age/Sex: 44 / FADM Date: 05/03/25 Loc: HO.US Attending Dr: Marah Das CNM Ordering Physician: Marah Das CNM Date of Service: 05/03/25 Procedure(s): US pelvic and transvaginal Accession Number(s): [id number] cc: Naomi Alfonso MD; Marah Das CNM [...] 05/03/25 1606 DD/ 1519 TD/TT: 05/03/25 1527 Shipping Inspector: us [facility] External Provider IMG US PROCEDURES Final Result * (ABNORMAL) HPV DNA, Low/High Risk (10/18/2024 10:01 AM EST) HPV High Risk Positive(A) Negative [facility] HPV Genotype 16 Negative Negative [facility] HPV Genotype 18 Negative Negative [facility] Comment:HPV testing performe d at [facility] (CLIA#[id number]), [address] [place] [address].Testing for HPV was performed using the Ignacio [...] Provider LAB BLOOD ORDERAB LES Final Result [facility] [address] [place] [phone] * Pap Smear (10/18/2024 10:01 AM EST) 10/18/2024 10:0 1 AM EST 10/19/2024 7:00 AM EST Narrative [facility] - 11/01/2024 11:40 AM EST ----- ------- Name: Naomi Chavira Age/Sex: 44/F : 1980 Unit#: [id number] Attend Dr: Marah Das CNM Re10/18/24 Status: DEP REF Location: [facility] Disch: ----- ------- SPEC : [id number] RECD: 10/19/24 STATUS: JAROCHO GRAYSON NUM: [id number] AUNDREA: 10/18/24-100 [facility] DR: Marah Das CNM ENTERED: 10/19/24 SP [...] Received Cervix Copies To: Naomi Alfonso MD [address] [address] CONTINUED ON NEXT PAGE ----- ------- Name: Naomi Chavira Age/Sex: 44/F : 1980 Unit#: [id number] Attend Dr: Marah Das CNM Re10/18/24 Status: DEP REF Location: HO.LNP Disch: ----- ------- SPEC : [id number] RECD: 10/19/24 STATUS: JAROCHO GRAYSON NUM: [id number] AUNDREA: 10/18/24-100 [facility] DR: Marah Das CNM ENTERED: 10/19/24 SP TYPE: Pap Smr OTHR DR: Naomi Alfonso MD ORDERED: Pap Smear Copies To: (Continued) Marah Das CNM [facility] [address] [place] [address] [address] [place] [address] ----- ------- Signed (signature on file) Tiffanie Bonilla CT (ASC) 10/28/24 1818 (signature on file) Parker Roper CT (ASCP) 11/01/24 1140 ----- ------- END OF REPORT us Generic External Data Provider LAB CYTOLOGY ARTURO MCDOWELL Final Result [facility] [address] [place] [phone] * BI Mammogram Screening Tomosynthesis Bilateral (08/17/2024 9:00 AM EST) Anatomical Region Laterality Modality Breast Bilateral Mammography 08/17/2024 9:00 AM EST Narrative 08/23/2024 10:19 AM EST [facility] [address] [place] [address] Dr. Zuleta, CONNIE [address] Mammography Report Signed with Addenda Patient: Naomi Chavira MR#: [id number] : 1980 Acct:[id number] Age/Sex: 44 / F ADM Date: 08/17/24 Loc: HO.MAMMO Attending Dr: Naomi Bocanegra MD Ordering Physician: Naomi Alfonso MD Results: 1Negative Date of Service: 08/17/24 Follow Up: 1 Year From Orig ina Mammogram Procedure(s): MM tomosynthesis screening BI Accession Number(s): [id number] cc: Naomi Alfonso MD ADDENDUM ADDENDUM #1 [...] OV> 08/23/24 1011 DD/ 9 TD/TT: 08/17/24929 Shipping Inspector: Procedure Note Donotuseinterpreter, Image - 08/29/2024 [facility] [address] [place] [address] Mammography Report Signed with Addenda Patient: Naomi Chavira MR#: [id number] : 1980Acct:[id number] Age/Sex: 44 / FADM Date: 08/17/24 Loc: HO.MAMMO Attending Dr: Naomi Bocanegra MD Ordering Physician: Naomi Alfonso MDResults: 1Negative Date of Service: 08/17/24Follow Up: 1 Year From Orig inal Mammogram Procedure(s): MM tomosynthesis screening BI Accession Number(s): [id number] cc: Naomi Alfonso MD ADDENDUM ADDENDUM #1 [...] by: Ena Downing DO 08/23/2024 10:11 AM [facility] Dictated By: Ena Downing DO Signed By: <Electronically signed by Ena Downing DO in OV> 08/23/24 1011 DD/ 9 TD/TT: 08/17/24929 Shipping Inspector: us Naomi Bocanegra MD IMG BI PROCEDURES Mehul lily Result - Final from Last 3 Months or Most Recently Relevant to Health Maintenance Insurance [facility] C3 HSN PARTIAL Care Teams Faucet Polisher Relationship Specialty Start Date End Date Naomi Alfonso MD [address] [place] [phone] PCP - General Family Medicine 06/19/18
--- OUTSIDE RECORDS SUMMARY | 2025-07-31 15:31 | XMS_ITS | Clinical Summary ---
Author Organization [facility] Address [address] [facility] [address] [place] [address] Phone Care Team Providers Care Multifocal Button Grinder Name Role Phone Unavailable Primary Care Provider [...] age to complete this topic [place]
--- OUTSIDE RECORDS SUMMARY | 2025-07-31 15:31 | XMS_ITS | Encounter Summary ---
Author Organization [employer] Address [address] [facility] 7[address] [place] [address] Care Team Providers Care Plsql Developer Name Role Phone Naomi Alfonso MD Primary Care Provide r Reason for Visit * Reason Onset Date Comments Nurse Triage 04/11/2025 Encounter Details Date Type Department Care Team ([facility] st Contact Info) Description 04/11/2025 Telephone [facility] MEDICINE [address] [place] [address] Naomi Alfonso MD [address] [place], [place] [phone] Nurse Triage Social History Tobacco Use Types [...] to Naomi Keita to triage below at [phone]. Reports that whenis on an airplane as [...] 06/05/2025 9:00 AM Naomi Bocanegra MD MEDICINE [facility] Insurance verified as active per Real Time Eligibility in [facility]. Video visit offer not recorded Positive Triage Question: * Nursing judgment * All higher-acuity triage questions were negative Care Advice Discussed: * Reasons To Call Back - New symptoms develop - You become worse * Telephone Encounter - Jeffrey Reardon - 04/11/2025 11:04 AM EDT Tc from pt stating she is experiencing really bad headaches , electrical shock like waves in her face and she feels her teeth are going to fall off. Contact pt at [phone] documented in this encounter Plan of Treatment Not on file documented as of this encounter Visit Diagnoses Not on filedocumented in this encounter Care Teams Plsql Developer Relationship Specialty Start Date End Date Naomi Alfonso MD [address] [place] [phone] PCP - General Family Medicine 06/19/18 documented as of this encounter
== END 2025-07-31 08:01 | disposition home or self-care (01) ==
LOC: HO.HOSX 08:00
DX: Z13.89 Encounter for screening for other disorder (principal)

== ENCOUNTER 2025-09-07 14:14 | Emergency (ER) | payer MEDICAID, SELFPAY ==
[2025-09-07 14:36] VITALS: BP 133/67; PULSE 76; RESP 18; TEMP 36.3; O2SAT 98; BMI 41.8
--- NOTE | 2025-09-07 14:37 | ED.GENADULT ---
[facility] - General Adult General Chief complaint: Upper Respiratory Symptoms Stated complaint: flu symptoms, abd pain R side Time Seen by Provider: 09/07/25 16:58 Source: patient Mode of arrival: ambulatory Limitations: no limitations History of Present Illness ED Provider: Dr. Armas [facility] narrative: 45-year-old female presented hospital today for evaluation of coughing, body aches, headache, right-sided abdominal pain has been going on for the past couple of days. Denies any nausea or vomiting. No diarrhea. However this abdominal pain is worsened when she moves. Related Data Home Medications ?Medication ?Instructions ?Recorded ?Confirmed cholecalciferol (vitamin D3) 50 50 mcg PO DAILY 06/10/22 05/21/25 mcg (2,000 unit) capsule albuterol sulfate 90 mcg/actuation 2 puff inhalation QID PRN 10/18/24 05/21/25 aerosol inhaler (Ventolin HFA) fluticasone furoate 100 1 inh inhalation QAM 10/18/24 05/21/25 mcg/actuation blister powder for inhalation (Arnuity Ellipta) Allergies Allergy/AdvReac Type Severity Reaction Status Date / Time No Known Allergies Allergy Verified 09/07/25 14:40 Review of Systems Review of Systems: Pertinent review of systems as mentioned in HPI. All other system otherwise negative. [facility] Past Medical History [facility] Narrative: Medical history as mentioned in HPI Medical History Abnormal Pap smear of cervix Fibroid Ovarian cyst Ectopic Abnormal uterine bleeding (AUB) Asthma Surgical History Tubal ligation status History of carpal tunnel surgery of left wrist Family History Family History Father No problems noted. Mother Stroke Social History Social History Alcohol intake: never Patient Tobacco Use Status: Never used Tobacco Advance Directives: No Advance Directives Information Provided: No Do you have a plan to hurt others: No Plan Current occupational status: unemployed Current occupation: right handed Physical Exam ED Exam Exam: General: Pleasant, no distress, interacting appropriately Head: Normacephalic, atraumatic ENT: oral mucosa moist, neck supple, no tracheal deviation Cardiovascular: regular rate, regular rhythm, no murmurs, rubbing, gallops Respiratory: CTAB, no wheeze, rales, rhonchi Gastrointestinal: Soft, non distended, right-sided abdominal tenderness to right flank Neurological: Awake and alert, no facial droop noted Skin: Warm and dry Psychiatric: Appropriate mood and thoughts Vital Signs: Vital Signs - 24 hr 09/07/25 14:36 Temperature 97.3 F Pulse Rate 76 Respiratory Rate 18 Blood Pressure 133/67 Pulse Oximetry 98 Oxygen Delivery Method Room Air BMI result Body Mass Index 41.8 Course Course Course Narrative: RME, this is a rapid medical exam performed by Kike Silvestre please refer to primary provider for complete H&P- 45-year-old female presents for evaluation of flu-like symptoms since yesterday. Plan for flu swabs Medical Decision Making Medical Decision Making [facility] Narrative: 45-year-old female presented hospital today for right-sided abdominal pain with the cough and body aches. The patient is asking whether her viral swab is positive. I discussed with her it is negative for flu COVID RSV. However based on his symptoms I am suspecting a viral illness. Patient has stated that she is also here for her right-sided abdominal pain which is reproducible and worsened when she moves. She does have history of kidney stone. Based on my exam patient does not appear to have an acute surgical abdomen. I attempted to discuss with the patient how I can best help her with her abdominal pain. My initial attempt was to see whether patient is looking for imaging or further workup or if she would like to trial of medication to see if it will help with her abdominal pain The patient became upset all of the sudden. And left the ER stating that she will follow up with her primary care doctor. Differential Diagnosis Differential Diagnoses: The differential diagnosis associated with the presentation includes Viral syndrome Lab Data [facility] Lab Attestation statement: I reviewed the patient's lab results. Labs: Lab Results 09/07/25 Range/Units 14:43 Influenza Type A (PCR) NEGATIVE (Negative) Influenza Type B (PCR) NEGATIVE (Negative) RSV RNA Qual (PCR) NEGATIVE (Negative) SARS-CoV-2 RNA (RT-PCR) NEGATIVE (Negative) Discharge Plan Discharge Clinical Impression: Acute viral syndrome Patient Disposition: Left W/O Completing Treatment Prescriptions: No Action cholecalciferol (vitamin D3) 50 mcg (2,000 unit) capsule 50 mcg PO DAILY Arnuity Ellipta 100 mcg/actuation blister with device 1 inh inhalation QAM albuterol sulfate [Ventolin HFA] 90 mcg/actuation HFA aerosol inhaler 2 puff inhalation QID PRN Discharge Date/Time: 09/07/25 17:08
[2025-09-07 15:25] LABS: Resp Syncy Virus RNA Qual PCR NEGATIVE (Negative); SARS COV2 PCR INHOUSE NEGATIVE (Negative)
--- OUTSIDE RECORDS SUMMARY | 2025-09-07 16:49 | XMS_ITS | Encounter Summary ---
Author Organization [employer] Address [address] [facility] [address] [place] [address] Care Team Providers Care Prop Making Supervisor Name Role Phone Naomi Alfonso MD Primary Care Provide r Encounter Details Date Type Department Care Team (Late st Contact Info) Description 09/07/2025 Orders Only GENERIC EXTERNAL DATA DEPARTMENT Provider, Generic External Data Social History Tobacco Use Types Packs/Day Years [...] Care Team (Late st Contact Info) Description 10/17/2025 9:15 AM EST Office Visit [facility] MEDICINE [address] [place] [address] Naomi Alfonso MD [address] [place] [address] documented as of this encounter Procedures Procedure Name Priority Date/Time Associated Diagnosis Comments SARS COV2/INFLUENZA A/B AND RSV RNA QL NAAT Routine 09/07/2025 2:43 PM EST documented in this encounter Results * SARS-CoV-2 RNA, Influenza A/B, and RSV RNA, Ql NAAT (09/07/2025 2:43 PM EST) Influenza A PCR NEGATIVE Negative [facility] Influenza B PCR NEGATIVE Negative [facility] Resp Syncy Virus RNA Qual PCR NEGATIVE Negative [facility] SARS COV2 PCR NEGATIVE Negative [facility] Comment:All test results mus t be correlated with clinical findings.Negative results do not preclude SARS-CoV2, influenza Avirus, influenza B virus and/or RSV infectionand should not be used as the sole basis for treatment orother patient management decisions. Negative results must becombined with clinical observations, patient history, andepidemiological information.This test has not been evaluated for monitoring treatment ofinfection.This test has been authorized by the FDA under an EmergencyUse Authorization (EUA) for use by authorized laboratories.Testing performed on the ArpeggiXpert utilizingreal-time RT-PCR.All SARS CoV2 and positive influenza A/B results arereported to [facility]. 09/07/2025 2:43 PM EST 09/07/2025 2:46 PM EST us Generic External Data Provider LAB MICROBIOLOGY - GENERAL ORDERABLES Final Result [facility] [address] [place] [phone] documented in this encounter Visit Diagnoses Not on filedocumented in this encounter Additional Health Concerns Assessment Noted Time PHQ-9 Depression Total Score: 0 06/05/20 25 9:03 AM EDT documented as of this encounter Care Teams Prop Making Supervisor Relationship Specialty Start Date End Date Naomi Alfonso MD [address] [place] [address] PCP - General Family Medicine 06/19/18 documented as of this encounter
--- OUTSIDE RECORDS SUMMARY | 2025-09-07 16:49 | XMS_ITS | Encounter Summary ---
Author Organization [employer] Address [address] [facility] [address] [place] [address] Care Team Providers Care Obgyn Nurse Name Role Phone Naomi Alfonso MD Primary Care Provide r Encounter Details Date Type Department Care Team (Late st Contact Info) Description 07/06/2023 Abstract [facility] MEDICINE [address] [place], [place] [phone] Naomi Alfonso MD [address] [place], [place] [phone] Social History Tobacco Use Types Packs/Day Years [...] Description 10/17/2025 9:15 AM EST Office Visit [facility] MEDICINE [address] [place], [place] [phone] Naomi Alfonso MD [address] [place] [address] documented as of this encounter Visit Diagnoses Not on filedocumented in this encounter Care Teams Obgyn Nurse Relationship Specialty Start Date End Date Naomi Alfonso MD [address] [place] [address] [phone] PCP - General Family Medicine 06/19/18 documented as of this encounter
--- OUTSIDE RECORDS SUMMARY | 2025-09-07 16:49 | XMS_ITS | Clinical Summary ---
Author Organization [facility] Address [address] [facility] [address] [place] [address] Phone Care Team Providers Care Inventory Control Clerk Name Role Phone Unavailable Primary Care Provider [...] age to complete this topic [place]
--- OUTSIDE RECORDS SUMMARY | 2025-09-07 16:49 | XMS_ITS | Clinical Summary ---
Author Organization [employer] Address [address] [facility] 7t [place] [address] Care Team Providers Care Welding Setter Name Role Phone Naomi Alfonso MD Primary Care Provide r Allergies No known active allergies Medications fluticasone furoate (Arnuity Ellipta) 100 MCG/ACT inhalerIndicati ons:Mild intermittent asthma with acute exacerbation Inhale 1 puff in the morning. Rinse mouth with water after use to reduce aftertaste and incidence of candidiasis. Do not swallow. 1 each 11 10/21/19 24 Active famotidine (Pepcid) 20 MG tabletIndicatio ns:Chronic [...] EVERY DAY 90 capsule 03/27/20 24 Active Semaglutide-Niko ght Management (Wegovy) 0.25 MG/0.5ML solution auto-injectorIn dications:Class 3 severe obesity due to excess calories with serious comorbidity and body mass index (BMI) of 40.0 to 44.9 in adult (HCC) Inject 0.25 mg under the skin 1 (one) time per week. 0.5 mL 06/12/20 Active albuterol (2.5 MG/3ML) 0.083% nebulizer solutionIndicat ions:Moderate persistent asthma without complication Take 3 mL (2.5 mg) by nebulization every 4 (four) hours if needed for wheezing. 75 mL 3 06/05/20 25 2025 Active albuterol (Ventolin HFA) 108 (90 Base) MCG/ACT inhalerIndicati ons:Moderate persistent asthma without complication INHALE 2 PUFFS BY MOUTH FOUR TIMES DAILY NEEDED 18 g 1 06/05/20 25 Active Mometasone Furoate (Asmanex HFA) 200 MCG/ACT aerosolIndicati ons:Moderate persistent asthma without complication Inhale 0.005 Act (1 mcg) 2 times daily. 13 g 3 06/05/20 25 Active lidocaine (Lidoderm) 5 % patchIndication s:Rib pain Apply 1 patch topically Once per day. Remove & discard patch within 12 hours or as directed by MD. 30 patch 06/05/20 Active cetirizine (ZyrTEC) 10 MG tablet Take 1 tablet (10 mg) by mouth Once per day. 90 tablet 3 06/17/20 25 2025 Active azithromycin (Zithromax) 250 MG tablet Take 2 tabs PO today then 1 tab PO daily x 4 days 6 tablet 06/17/20 25 Active guaiFENesin (Mucinex) 600 MG 12 hr tablet Take 1 tablet (600 mg) by mouth if needed in the morning and at bedtime for cough or congestion. Do not crush, chew, or split. 30 tablet 06/17/20 25 2025 Active Blood Pressure Monitor device Check BP daily 1 each 06/28/20 25 Active diphenhydrAMINE (BENADryl) 25 MG tablet Take 1 tablet (25 mg) by mouth every 6 (six) hours if needed for itching. 30 tablet 06/28/20 25 Active fluticasone (Flonase) 50 MCG/ACT nasal sprayIndication s:Chronic frontal sinusitis INSTILL 1-2 SPRAYS IN EACH NOSTRIL ONCE DAILY 16 g 2 08/27/20 25 Active fluticasone (Flonase) 50 MCG/ACT nasal sprayIndication s:Chronic frontal sinusitis Administer 1-2 sprays into each nostril Once per day. Shake gently. Before first use, prime pump. After use, clean tip and replace cap. 16 g 2 06/05/20 25 2024 Discontinued Active Problems Problem Noted Date [...] Encounters Date Type Department Care Team Description 09/07/2025 Orders Only GENERIC EXTERNAL DATA DEPARTMENT Provider, Generic External Data 08/27/2025 Refill [facility] [address] [place] [phone] Naomi Alfonso MD Chronic frontal sinusitis 08/07/2025 Telephone [facility] [address] [place] [address] Naomi Alfonso MD feb recall 07/24/2025 3:15 PM EST Office Visit [facility] [address] [place] [address] Naomi Alfonso MD Encounter for immunization 07/24/2025 Travel 07/23/2025 Telephone [facility] [address] [place] [phone] Naomi Alfonso MD Chart Prep 06/28/2025 9:00 AM EDT Office Visit [facility] [address] [place] [phone] Paula Hopkins MD Allergic dermatitis (Primary Dx); Elevated BP reading w/ no diagnosis of HTN 06/28/2025 Travel 06/17/2025 9:00 AM EDT Office Visit [facility] [address] [address] Ofelia Tay DO Bronchitis (Primary Dx) 06/17/2025 Travel from Last 3 Months Immunizations Immunization Administration [...] your housing situation today? I have verena yessenia 01/15/[address] you li [...] 07/24/2025 3:37 PM EST Plan of Treatment Upcoming Encounters Date Type Department Care Team (Late st Contact Info) Description 10/17/2025 9:15 AM EST Office Visit [facility] [address] [place], [place] [phone] Naomi Alfonso MD [address] [place] [address] Health Maintenance Due Date Last Done Comments [...] QL NAAT Routine 09/07/2025 2:43 PM EST POCT COVID-19 AG MCARTHUR ID NOW Routine 06/17/2025 9:24 AM EDT Bronchitis POCT RAPID STREP A Routine 06/17/2025 9: 24 AM EDT Bronchitis POCT INFLUENZA A (ID NOW RAPID MOLECULAR) Routine 06/17/2025 9:24 AM EDT Bronchitis POCT INFLUENZA B (ID NOW RAPID MOLECULAR) Routine 06/17/2025 9:24 AM EDT Bronchitis HEPATITIS C AB W/REFL TO HCV RNA, QN, PCR Routine 05/09/2025 8:48 AM EDT Encounter for preventive health examination HIV 1/2 ANTIGEN/ANTIBODY, FOURTH GENERATION W/RFL Routine 05/09/2025 8:48 AM EDT Encounter for preventive health examination LIPID PANEL, STANDARD Routine 05/09/2025 8:48 AM EDT Encounter for preventive health examination HPV DNA, LOW/HIGH RISK Routine 10:01 AM EST PAP SMEAR Routine 10/18/2024 10:01 AM EST BI MAMMOGRAM SCREENING TOMOSYNTHESIS BILATERAL Routine 08/17/2024 9:00 AM EST from Last 3 Months or Most Recently Relevant to Health Maintenance Results * SARS-CoV-2 RNA, Influenza A/B, and RSV RNA, Ql NAAT (09/07/2025 2:43 PM EST) Influenza A PCR NEGATIVE Negative [facility] Influenza B PCR NEGATIVE Negative [facility] Resp Syncy Virus RNA Qual PCR NEGATIVE Negative [facility] SARS COV2 PCR NEGATIVE Negative [facility] Comment:All test results mus t be [...] use by authorized laboratories.Testing performed on the [employer] GeneXpert utilizingreal-time RT-PCR.All SARS CoV2 and positive influenza A/B results arereported to [facility]. 09/07/2025 2:43 PM EST 09/07/2025 2:46 PM EST Generic External Data Provider LAB MICROBIOLOGY - GENERAL ORDERABLES Final Result Performing Organization Address [facility]/ZIP Co de Phone Number [facility] [address] [place] [phone] * Influenza B (ID NOW Rapid Molecular) (06/17/2025 9:24 AM EDT) Influenza B Negative Negative, Indeterminate [facility] Swab 06/17/2025 9:24 AM EDT Ofelia Tay DO POINT OF CARE TEST ENTER/MEHUL T ORDERABLES Final Result Performing Organization Address [facility]/ZIP Co de Phone Number [facility] [address] [place] [phone] * Influenza A (ID NOW Rapid Molecular) (06/17/2025 9:24 AM EDT) [facility] Influenza A Negative Negative, Indeterminate [facility] Swab 06/17/2025 9:24 AM EDT Ofelia Maggi DO POINT OF CARE TEST ENTER/MEHUL T ORDERABLES Final Result [facility] [address] [place] [phone] * POCT COVID-19 Ag Mcarthur ID NOW (06/17/2025 9:24 AM EDT) [facility] Coronavirus Antigen PCR Negative Negative, Indeterminate, None Detected, Invalid, Specimen unsatisfactory for evaluation, Weakly Positive, 2+ Swab 06/17/2025 9:24 AM EDT Ofelia Maggi DO POINT OF CARE TEST ENTER/MEHUL T ORDERABLES Final Result * POCT rapid strep A manually resulted (06/17/2025 9:24 AM EDT) [facility] Rapid Strep A Screen Negative Negative, None Detected Swab 06/17/2025 9:24 AM EDT Ofelia Maggi DO POINT OF CARE TEST ENTER/MEHUL T ORDERABLES Final Result * Hepatitis C Antibody with Reflex to HCV, RNA, Quantitative, Real-Time PCR (05/09/2025 8:48 AM EDT) [facility] Hepatitis C Antibody Nonreactive Nonreactive [facility] Comment:Antibodies to HCV no t detected; does not exclude early acuteHCV infection. Blood Venous blood specimen / Unknown 05/09/2025 8:48 AM EDT 05/09/2025 11:28 AM EDT us Naomi Bocanegra MD LAB BLOOD ORDERABLES Final Result Performing Organization Address [facility]/ZIP Co de Phone Number [facility] [address] [place] [phone] * HIV-1/2 Antigen and Antibodies, Fourth Generation, with Reflexes (05/09/2025 8:48 AM EDT) HIV AB/AG Nonreactive Nonreactive [facility] Comment:HIV-1 p24 Ag and/or HIV-1/HIV-2 Ab not detected.A test result that is nonreactive does not exclude thepossibility of exposure to or infection with HIV-1 and/orHIV-2. Nonreactive results in this assay for individualswith prior exposure to HIV-1 and/or HIV-2 may be due toantigen and antibody levels that are below the limit ofdetection of this assay.The ProBinder HIV Ag/Ab Combo assay result andsupplemental assay results should be interpreted inconjunction with the patient's clinical presentation,history and other laboratory results. If the results areinconsistent with clinical evidence, additional testing issuggested to confirm the result. Blood Venous blood specimen / Unknown 05/09/2025 8:48 AM EDT 05/09/2025 11:28 AM EDT us Naomi Bocanegra MD LAB BLOOD ORDERABLES Final Result Performing Organization Address [facility]/ZIP Co de Phone Number [facility] [address] [place] [phone] * (ABNORMAL) Lipid Panel, Standard (05/09/2025 8:48 AM EDT) Triglycerides 146 <150 mg/dL [facility] Comment:Desirable Triglyceri de: less than 150 mg/dLBorderline High Triglyceride 150-199 mg/dLHigh Triglyceride: 200-499 mg/dLVery High Triglyceride: greater than or equal to 5OO mg/dL Cholesterol 181 <200 mg/dL [facility] Comment:Desirable Cholestero l: less than 200 mg/dLBorderline High Cholesterol: 200-239 mg/dLHigh Cholesterol: greater than 239 mg/dL LDL Cholesterol Calculated 120(H) <100 mg/dL [facility] Comment:Desirable LDL: less than 100 mg/dLNear Optimal/Above Optimal LDL: 110- 129 mg/dLBorderline High LDL: 130-159 mg/dLHigh LDL: 160-189 mg/dLVery High LDL: greater than or equal to 190 mg/dL HDL Cholesterol 32(L) >40 mg/dL [facility] Comment:Desirable HDL: great er than 40 mg/dL Note: This HDL assay may give artificially low results in patients with liver disease. Blood Venous blood specimen / Unknown 05/09/2025 8:48 AM EDT 05/09/2025 11:28 AM EDT Naomi Bocanegra MD LAB BLOOD ORDERABLES Final Result [facility] [address] [place] [phone] * (ABNORMAL) HPV DNA, Low/High Risk (10/18/2024 10:01 AM EST) HPV High Risk Positive(A) Negative [facility] HPV Genotype 16 Negative Negative [facility] HPV Genotype 18 Negative Negative [facility] Comment:HPV testing performe d at [facility] (CLIA#[id number]), [address] [place] [address].Testing for HPV was performed using the Ignacio [...] Provider LAB BLOOD ORDERAB LES Final Result [facility] [address] [place] [phone] * Pap Smear (10/18/2024 10:01 AM EST) 10/18/2024 10:0 1 AM EST 10/19/2024 7:00 AM EST Narrative [facility] - 11/01/2024 11:40 AM EST ----- ------- Name: Naomi Chavira Age/Sex: 44/F : 1980 Unit#: [id number] Attend Dr: Marah Das CNM Re10/18/24 Status: DEP REF Location: HO.LNP Disch: ----- ------- SPEC : [id number] RECD: 10/19/24 STATUS: JAROCHO GRAYSON NUM: [id number] AUNDREA: 10/18/24-[address]: Marah Das CNM ENTERED: 10/19/24 SP TYPE: Pap Smr OTHR DR: Naomi Alfonso MD ORDERED: Pap Smear Addendum Addendum 1 Entered: 11/01/24-1139 HPV High Risk: Positive HPV Genotyping 16: [...] Received Cervix Copies To: Naomi Alfonso MD [place] [phone] CONTINUED ON NEXT PAGE ----- ------- Name: Naomi Chavira Age/Sex: 44/F : 1980 Unit#: [id number] Attend Dr: Marah Das [facility] Re10/18/24 Status: DEP REF Location: [facility] Disch: ----- ------- SPEC : [id number] RECD: 10/19/24 STATUS: JAROCHO GRAYSON NUM: [id number] AUNDREA: 10/18/24 [facility] DR: Marah Das CNM ENTERED: 10/19/24 SP TYPE: Pap Smr WARNER DR: Naomi Alfonso MD ORDERED: Pap Smear Copies To: (Continued) Marah Das CNM [facility] [address] [place] [address] [address] [place] [phone] ----- ------- Signed (signature on file) Tiffanie Bonilla, [place] (ASC) 10/28/24 1818 (signature on file) Parker Roper, CT (ASCP) 11/01/24 1140 ----- ------- END OF REPORT us Generic External Data Provider LAB CYTOLOGY ARTURO MCDOWELL Final Result [facility] [address] [place] [phone] * BI Mammogram Screening Tomosynthesis Bilateral (08/17/2024 9:00 AM EST) Anatomical Region Laterality Modality Breast Bilateral Mammography 08/17/2024 9:00 AM EST Narrative 08/23/2024 10:19 AM EST [facility] [address] [place] [address] Mammography Report Signed with Addenda Patient: Naomi Chavira MR#: [id number] : 1980 Acct:[id number] Age/Sex: 44 / F ADM Date: 08/17/24 Loc: HO.MAMMO Attending Dr: Naomi Bocanegra MD Ordering Physician: Naomi Alfonso MD Results: 1Negative Date of Service: 08/17/24 Follow Up: 1 Year From Orig ina Mammogram Procedure(s): MM tomosynthesis screening BI Accession Number(s): [id number] cc: Naomi Alfonso MD ADDENDUM ADDENDUM #1 [...] 08/23/24 1011 DD/ 0900 TD/TT: 08/17/24 0930 Medical Office Worker: Procedure Note Donotuseinterpreter, Image - 08/29/2024 [facility] [address] [place] [address] Mammography Report Signed with Addenda Patient: Naomi Chavira MR#: [id number] : 1980Acct:[id number] Age/Sex: 44 / FADM Date: 08/17/24 Loc: HO.MAMMO Attending Dr: Naomi Bocanegra MD Ordering Physician: Naomi Alfonso MDResults: 1Negative Date of Service: 08/17/24Follow Up: 1 Year From Orig ina Mammogram Procedure(s): MM tomosynthesis screening BI Accession Number(s): [id number] cc: Naomi Alfonso MD ADDENDUM ADDENDUM #1 [...] OV> 08/23/24 1011 DD/ 9 TD/TT: 08/17/24929 Medical Office Worker: us Naomi Bocanegra MD IMG BI PROCEDURES Mehul lily Result - Final from Last 3 Months or Most Recently Relevant to Health Maintenance Insurance [facility] C3 HSN PARTIAL Care Teams Welding Setter Relationship Specialty Start Date End Date Naomi Alfonso MD [address] [place] [phone] PCP - General Family Medicine 06/19/18
--- OUTSIDE RECORDS SUMMARY | 2025-09-07 16:49 | XMS_ITS | Encounter Summary ---
Author Organization [employer] Address [address] 7t [place] [address] Care Team Providers Care Beadworker Name Role Phone Naomi Alfonso MD Primary Care Provide r Encounter Details Date Type Department Care Team (Late st Contact Info) Description 07/08/2023 Abstract [facility] [address] [place], [place] [phone] Naomi Alfonso MD [address] [place], [place] [phone] Social History Tobacco Use Types Packs/Day Years [...] Description 10/17/2025 9:15 AM EST Office Visit [facility] [address] [place], [place] [phone] Naomi Alfonso MD [address] [place] [address] documented as of this encounter Visit Diagnoses Not on filedocumented in this encounter Care Teams Beadworker Relationship Specialty Start Date End Date Naomi Alfonso MD [address] [place] [address] [phone] PCP - General Family Medicine 06/19/18 documented as of this encounter
--- OUTSIDE RECORDS SUMMARY | 2025-09-07 16:49 | XMS_ITS | Encounter Summary ---
Author Organization [employer] Address [address] [facility] 7t [place] [address] Care Team Providers Care Environmental Studies Program Director Name Role Phone Naomi Alfonso MD Primary Care Provide r Encounter Details Date Type Department Care Team ([facility] Contact Info) Description 02/08/2023 Telephone [facility] [address] [place], [place] [phone] Naomi Alfonso MD [address] [place] [phone] Social History Tobacco Use Types Packs/Day Years [...] Department Care Team (Late Contact Info) Description 10/17/2025 9:15 AM EST Office Visit [facility] MED[facility] [address] [place] [phone] Naomi Alfonso MD [address] [place] [address] [phone] documented as of this encounter Visit Diagnoses Not on filedocumented in this encounter Care Teams Environmental Studies Program Director Relationship Specialty Start Date End Date Naomi Alfonso MD [address] [place] [phone] PCP - General Family Medicine 06/19/18 documented as of this encounter
--- NOTE | 2025-09-07 17:06 | PC.NURSE ---
Provider Pawel notified t/w that when he went to go evaluate the patient she became upset and left the department. Ambulatory with steady gait
== END 2025-09-07 17:08 | disposition left against medical advice (07) ==
PROVIDERS: Physician Assistant; Emergency Provider Student in an Organized Health Care Education/Training Program; PCP Internal Medicine
DX: B34.9 Viral infection, unspecified (principal); R05.9 Cough, unspecified; Z03.818 Encounter for observation for suspected exposure to other biological agents ruled out; J45.909 Unspecified asthma, uncomplicated; Z79.899 Other long term (current) drug therapy
CPT/HCPCS: 87637; 99281; 99283

== ENCOUNTER 2025-09-09 09:32 | Outpatient (REF) | payer MEDICAID, SELFPAY ==
--- NOTE | ~2025-09-09 | XR_ITS ---
EXAMINATION: XR CHEST CLINICAL INFORMATION: cough, right sided chest pain COMPARISON: 12/16/2020. TECHNIQUE: 2 views of the chest were obtained. FINDINGS: The cardiac, hilar, and mediastinal contours are normal. The lungs are clear bilaterally. There is no pneumothorax or pleural effusion. There is no focal osseous or soft tissue abnormality. There are mild degenerative changes in the spine with a mild right convex scoliosis. XR/XR chest 2V IMPRESSION: No active pulmonary disease. Electronically signed by: Hussain Boyd MD 09/09/2025 10:09 AM [facility]
--- OUTSIDE RECORDS SUMMARY | 2025-09-09 09:00 | XMS_ITS | Encounter Summary ---
Author Organization [employer] Address [address] 7[address] [place] [address] Care Team Providers Care Wrapper Selector Name Role Phone Naomi Alfonso MD Primary Care Provide r Reason for Visit * Reason Comments Right Side Pain Encounter Details Date Type Department Care Team ([facility] st Contact Info) Description 09/09/2025 9:00 AM EST Office Visit [facility] [address] [place], [place] [phone] Right-sided chest pain (Primary Dx); Cough in adult patient Social History Tobacco Use Types Packs/Day Years Used Date Smoking Tobacco: Former Cigarettes Passive Smoke Exposure: Never Smokeless Tobacco: Never [...] AM EDT documented as of this encounter Last Filed Vital Signs Vital Sign Reading Time Taken Comments Blood Pressure 146/87 09/09/2025 9:07 AM EST Pulse 72 09/09/2025 9:07 AM EST Temperature 36.7 C (98 F) 09/09/2025 9:07 AM EST Respiratory Rate 18 09/09/2025 9:07 AM EST Oxygen Saturation 99% 09/09/2025 9:07 AM EST Inhaled Oxygen Concentration - - Weight 102 kg (224 lb) 09/09/2025 9:07 AM EST Height - - Body Mass Index 41.64 07/24/2025 3:37 PM EST documented in this encounter Plan of Treatment Upcoming Encounters Date Type Department Care Team (Late st Contact Info) Description 10/17/2025 9:15 AM EST Office Visit [facility] [address] [place] [address] Naomi Alfonso MD [address] [place] [address] Scheduled Orders Name Type Priority Associated Diagnoses Orde r Schedule XR Chest 2 Views Imaging Routine Cough in adult patient Right-sided chest pain Expected: 09/09/2025, Expires: 09/09/2026 D-Dimer, Quantitative Lab Routine Right-sided chest pain Expected: 09/09/2025 (Approximate), Expires: 09/09/2026 documented as of this encounter Procedures Procedure Name Priority Date/Time Associated Diagnosis Comments POCT INFLUENZA B (ID NOW RAPID MOLECULAR) Routine 09/09/2025 9:25 AM EST Cough in adult patient POCT INFLUENZA A (ID NOW RAPID MOLECULAR) Routine 09/09/2025 9:25 AM EST Cough in adult patient documented in this encounter Results * Influenza A (ID NOW Rapid Molecular) (09/09/2025 9:25 AM EST) Influenza A Negative Negative, Indeterminate [facility] Swab 09/09/2025 9:25 AM EST us Ashvin Salcedo MD POINT OF CARE TEST ENTER/EDIT OR DERABLES Final Result Performing Organization Address [facility]/ZIP Co de Phone Number [facility] [address] [place] [phone] * Influenza B (ID NOW Rapid Molecular) (09/09/2025 9:25 AM EST) Influenza B Negative Negative, Indeterminate [facility] Swab 09/09/2025 9:25 AM EST us Ashvin Salcedo MD POINT OF CARE TEST ENTER/EDIT OR DERABLES Final Result Performing Organization Address [facility] Co de Phone Number [facility] [address] [place] [phone] documented in this encounter Visit Diagnoses Diagnosis Right-sided chest pain- Primary Cough in adult patient documented in this encounter Additional Health Concerns Assessment Noted Time PHQ-9 Depression Total Score: 0 06/05/20 25 9:03 AM EDT documented as of this encounter Care Teams Wrapper Selector Relationship Specialty Start Date End Date Naomi Alfonso MD [address] [place] [phone] PCP - General Family Medicine 06/19/18 documented as of this encounter
--- OUTSIDE RECORDS SUMMARY | 2025-09-09 10:09 | XMS_ITS | Clinical Summary ---
Author Organization [facility] Address [address] [facility] [address] [place] [address] Phone Care Team Providers Care Perforator Operator Name Role Phone Unavailable Primary Care Provider [...] age to complete this topic [place]
--- OUTSIDE RECORDS SUMMARY | 2025-09-09 10:09 | XMS_ITS | Encounter Summary ---
Author Organization [employer] Address [address] [facility] 7t [place] [address] Care Team Providers Care Mechanical Facilities Technician Name Role Phone Naomi Alfonso MD Primary Care Provide r Encounter Details Date Type Department Care Team ([facility] Contact Info) Description 02/08/2023 Telephone [facility] MED & PEDS [address] [place], [place] [phone] Naomi Alfonso MD [address] [place] [phone] Social History Tobacco Use Types Packs/Day Years [...] Description 10/17/2025 9:15 AM EST Office Visit [facility] MED[facility]INE [address] [place] [phone] Naomi Alfonso MD [address] [place] [address] [phone] documented as of this encounter Visit Diagnoses Not on filedocumented in this encounter Care Teams Mechanical Facilities Technician Relationship Specialty Start Date End Date Naomi Alfonso MD [address] [place] [phone] PCP - General Family Medicine 06/19/18 documented as of this encounter
--- OUTSIDE RECORDS SUMMARY | 2025-09-09 10:09 | XMS_ITS | Encounter Summary ---
Author Organization [employer] Address [address] 7[address] [place] [address] Care Team Providers Care Felting Machine Operator Helper Name Role Phone Naomi Alfonso MD Primary Care Provide r Encounter Details Date Type Department Care Team (Late st Contact Info) Description 07/06/2023 Abstract [facility] MEDICINE [address] [place], [place] [phone] Naomi Alfonso MD [address] [place], [place] [phone] Social History Tobacco Use Types Packs/Day Years [...] Description 10/17/2025 9:15 AM EST Office Visit [facility] MEDICINE [address] [place], [place] [phone] Naomi Alfonso MD [address] [place] [address] documented as of this encounter Visit Diagnoses Not on filedocumented in this encounter Care Teams Felting Machine Operator Helper Relationship Specialty Start Date End Date Naomi Alfonso MD [address] [place] [address] [phone] PCP - General Family Medicine 06/19/18 documented as of this encounter
--- OUTSIDE RECORDS SUMMARY | 2025-09-09 10:09 | XMS_ITS | Encounter Summary ---
Author Organization [employer] Address [address] [place] [address] Care Team Providers Care Wafer Line Worker Name Role Phone Naomi Alfonso MD [...] Description 10/17/2025 9:15 AM EST Office Visit [facility] [address] [place] [address] Naomi Alfonso MD [address] [place] [address] documented as of this encounter Procedures Procedure Name Priority Date/Time Associated Diagnosis Comments SARS COV2/INFLUENZA A/B AND RSV RNA QL NAAT Routine 09/07/2025 2:43 PM EST documented in this encounter Results * SARS-CoV-2 RNA, Influenza A/B, and RSV RNA, Ql NAAT (09/07/2025 2:43 PM EST) Influenza A PCR NEGATIVE Negative [facility] Influenza B PCR NEGATIVE Negative [facility] Resp Syncy Virus RNA Qual PCR NEGATIVE Negative [facility] SARS COV2 PCR NEGATIVE Negative [facility] Comment:All test results mus t be [...] use by authorized laboratories.Testing performed on the [employer]pert utilizingreal-time RT-PCR.All SARS CoV2 and positive influenza A/B results arereported to [facility]. 09/07/2025 2:43 PM EST 09/07/2025 2:46 PM EST us Generic External Data Provider LAB MICROBIOLOGY - GENERAL ORDERABLES Final Result [facility] [address] [place] [phone] documented in this encounter Visit Diagnoses Not on filedocumented in this encounter Additional Health Concerns Assessment Noted Time PHQ-9 Depression Total Score: 0 06/05/20 25 9:03 AM EDT documented as of this encounter Care Teams Wafer Line Worker Relationship Specialty Start Date End Date Naomi Alfonso MD [address] [place] [phone] PCP - General Family Medicine 06/19/18 documented as of this encounter
--- OUTSIDE RECORDS SUMMARY | 2025-09-09 10:09 | XMS_ITS | Encounter Summary ---
Author Organization [employer] Address [address] [place] [address] Care Team Providers Care Conveyor Belt Operator Name Role Phone Naomi Alfonso MD Primary Care Provide r Encounter Details Date Type Department Care Team (Latest Contact Info) Description 09/09/2025 Travel Social History Tobacco Use Types Packs/Day Years [...] Description 10/17/2025 9:15 AM EST Office Visit [facility] MEDICINE [address] [place] [phone] Naomi Alfonso MD [address] [place] [phone] documented as of this encounter Visit Diagnoses Not on filedocumented in this encounter Additional Health Concerns Assessment Noted Time PHQ-9 Depression Total Score: 0 06/05/20 25 9:03 AM EDT documented as of this encounter Care Teams Conveyor Belt Operator Relationship Specialty Start Date End Date Naomi Alfonso MD [address] [place] [phone] PCP - General Family Medicine 06/19/18 documented as of this encounter
--- OUTSIDE RECORDS SUMMARY | 2025-09-09 10:09 | XMS_ITS | Encounter Summary ---
Author Organization [employer] Address [address] [place] [address] Care Team Providers Care Piping Manager Name Role Phone Naomi Alfonso MD Primary Care Provide r Encounter Details Date Type Department Care Team (Late st Contact Info) Description 07/08/2023 Abstract [facility] MEDICINE [address] [place], [place] [phone] Naomi Alfonso MD [address] [place], [place] [phone] Social History Tobacco Use Types Packs/Day Years [...] 10/17/2025 9:15 AM EST Office Visit [facility]INE [address] [place], [place] [phone] Naomi Alfonso MD [address] [place] [address] documented as of this encounter Visit Diagnoses Not on filedocumented in this encounter Care Teams Piping Manager Relationship Specialty Start Date End Date Naomi Alfonso MD [address] [place] [phone] PCP - General Family Medicine 06/19/18 documented as of this encounter
--- OUTSIDE RECORDS SUMMARY | 2025-09-09 10:09 | XMS_ITS | Clinical Summary ---
Author Organization [employer] Address [address] [facility] [facility] [address] [place] [address] Care Team Providers Care Auto Customize Painter Name Role Phone Naomi Alfonso MD Primary [...] Encounters Date Type Department Care Team Description 09/09/2025 9:00 AM EST Office Visit [facility] [address] [place] [phone] Right-sided chest pain (Primary Dx); Cough in adult patient 09/09/2025 Travel 09/07/2025 Orders Only GENERIC EXTERNAL DATA DEPARTMENT Provider, Generic External Data 08/27/2025 Refill [facility] [address] [place] [phone] Naomi Alfonso MD Chronic frontal sinusitis 08/07/[address] [address] Naomi Alfonso MD feb recall 07/24/2025 3:15 PM EST Office Visit [address] [address] Naomi Alfonso MD Encounter for immunization 07/24/2025 Travel 07/23/2025 Telephone [facility] [address] [place] [phone] Naomi Alfonso MD Chart Prep 06/28/2025 9:00 AM EDT Office Visit [facility] [address] [place] [phone] Paula Hopkins MD Allergic dermatitis (Primary Dx); Elevated BP reading w/ no diagnosis of HTN 06/28/2025 Travel 06/17/2025 9:00 AM EDT Office Visit [facility] [address] [place] [phone] Ofelia Tay DO Bronchitis (Primary Dx) 06/17/2025 [...] (224 lb) 09/09/2025 9:07 AM EST Height 156.2 cm (5' 1.5 ) 07/24/2025 3:37 PM EST Body Mass Index 41.64 07/24/2025 3:37 PM EST Plan of Treatment Upcoming Encounters Date Type Department Care Team (Late st Contact Info) Description 10/17/2025 9:15 AM EST Office Visit [facility] [address] [place] [address] Naomi Alfonso MD [address] [place] [address] Health Maintenance Due Date Last Done Comments CT Colonography 1980 Colonoscopy 1980 Colorectal Cancer Screening 1980 FIT DNA/Cologuard 1980 FIT 1980 FOBT 1980 Sigmoidoscopy 1980 Disability Screening 1980 Family Planning (PISQ) 1993 COVID-19 Vaccine ( season) 2025 08/05/2021, 06/17/2021 Mammogram 08/17/2025 08/17/2024, 10/17/2019 SDOH Screening 01/15/2026 01/15/2025 Alcohol/Substance Use Screening 06/05/2026 06/05/2025 Depression Screening 06/05/2026 06/05/2025, 06/05/20 25 Tobacco Screening 09/09/2026 09/09/2025 Pap Smear 10/18/2027 10/18/2024 Zoster Vaccines (1 [...] Priority Date/Time Associated Diagnosis Comments POCT INFLUENZA A (ID NOW RAPID MOLECULAR) Routine 09/09/2025 9:25 AM EST Cough in adult patient POCT INFLUENZA B (ID NOW RAPID MOLECULAR) Routine 09/09/2025 9:25 AM EST Cough in adult patient SARS COV2/INFLUENZA A/B AND RSV RNA QL [...] NOW Rapid Molecular) (09/09/2025 9:25 AM EST) Only the most recent of2 resultswithin the time period is included. Influenza B Negative Negative, Indeterminate [facility] Swab 09/09/2025 9:25 AM EST us Ashvin Salcedo MD POINT OF CARE TEST ENTER/EDIT OR DERABLES Final Result Performing Organization Address City/[facility]/ZIP Co de Phone Number [facility] [address] [place] [phone] * Influenza A (ID NOW Rapid Molecular) (09/09/2025 9:25 AM EST) Only the most recent of2 resultswithin the time period is included. Influenza A Negative Negative, Indeterminate [facility] Swab 09/09/2025 9:25 AM EST us Ashvin Salcedo MD POINT OF CARE TEST ENTER/EDIT OR DERABLES Final Result Performing Organization Address [facility]/ZIP Co de Phone Number [facility] [address] [place] [phone] * SARS-CoV-2 RNA, Influenza A/B, and RSV RNA, Ql NAAT (09/07/2025 2:43 PM EST) [facility] Influenza A PCR NEGATIVE Negative [facility] Influenza B PCR NEGATIVE Negative [facility] Resp Syncy Virus RNA Qual PCR NEGATIVE Negative [facility] SARS COV2 PCR NEGATIVE Negative [facility] Comment:All test results mus t [...] use by authorized laboratories.Testing performed on the [employer] GeneXpert utilizingreal-time RT-PCR.All SARS CoV2 and positive influenza A/B results arereported to [facility] 09/07/2025 2:43 PM EST 09/07/2025 2:46 PM EST Generic External Data Provider LAB MICROBIOLOGY - GENERAL ORDERABLES Final Result [facility] [address] [place] [phone] * POCT COVID-19 Ag Mcarthur ID NOW (06/17/2025 9:24 AM EDT) [facility] Coronavirus Antigen PCR Negative Negative, Indeterminate, None Detected, Invalid, Specimen unsatisfactory for evaluation, Weakly Positive, 2+ Swab 06/17/2025 9:24 AM EDT Ofelia Tay DO POINT OF CARE TEST ENTER/MEHUL T ORDERABLES Final Result * POCT rapid strep A manually resulted (06/17/2025 9:24 AM EDT) [facility] Rapid Strep A Screen Negative Negative, None Detected Swab 06/17/2025 9:24 AM EDT Ofelia Tay DO POINT OF CARE TEST ENTER/MEHUL T ORDERABLES Final Result * Hepatitis C Antibody with Reflex to HCV, RNA, Quantitative, Real-Time PCR (05/09/2025 8:48 AM EDT) Hepatitis C Antibody Nonreactive Nonreactive [facility] Comment:Antibodies to HCV no t detected; does not exclude early acuteHCV infection. Blood Venous blood specimen / Unknown 05/09/2025 8:48 AM EDT 05/09/2025 11:28 AM EDT Naomi oBcanegra MD LAB BLOOD ORDERABLES Final Result Performing Organization Address [facility] Co de Phone Number [facility] [address] [place] [phone] * HIV-1/2 Antigen and Antibodies, Fourth Generation, with Reflexes (05/09/2025 8:48 AM EDT) Pathologist [facility] HIV AB/AG Nonreactive Nonreactive [facility] Comment:HIV-1 p24 Ag and/or HIV-1/HIV-2 Ab not detected.A test result that is nonreactive does not exclude thepossibility of exposure to or infection with HIV-1 and/orHIV-2. Nonreactive results in this assay for individualswith prior exposure to HIV-1 and/or HIV-2 may be due toantigen and antibody levels that are below the limit ofdetection of this assay.The [employer] HIV Ag/Ab Combo assay result andsupplemental assay results should be interpreted inconjunction with the patient's clinical presentation,history and other laboratory results. If the results areinconsistent with clinical evidence, additional testing issuggested to confirm the result. Blood Venous blood specimen / Unknown 05/09/2025 8:48 AM EDT 05/09/2025 11:28 AM EDT us Naomi Bocanegra MD LAB BLOOD ORDERABLES Final Result Performing Organization Address City/[facility]/ZIP Co de Phone Number [facility] [address] [place] [phone] * (ABNORMAL) Lipid Panel, Standard (05/09/2025 8:48 AM EDT) Triglycerides 146 <150 mg/dL [facility] Comment:Desirable Triglyceri de: less than 150 mg/dLBorderline High Triglyceride 150-199 mg/dLHigh Triglyceride: 200-499 mg/dLVery High Triglyceride: greater than or equal to 5OO mg/dL Cholesterol 181 <200 mg/dL [facility] Comment:Desirable Cholestero l: less than 200 mg/dLBorderline High Cholesterol: 200-239 mg/dLHigh Cholesterol: greater than 239 mg/dL LDL Cholesterol Calculated 120(H) <100 mg/dL [facility] Comment:Desirable LDL: less than 100 mg/dLNear Optimal/Above Optimal LDL: 110- 129 mg/dLBorderline High LDL: 130-159 mg/dLHigh LDL: 160-189 mg/dLVery High LDL: greater than or equal to 190 mg/dL HDL Cholesterol 32(L) >40 mg/dL [facility] Comment:Desirable HDL: great er than 40 mg/dL Note: This HDL assay may give artificially low results in patients with liver disease. Blood Venous blood specimen / Unknown 05/09/2025 8:48 AM EDT 05/09/2025 11:28 AM EDT us Naomi Bocanegra MD LAB BLOOD ORDERABLES Final Result [facility] [address] [place] [phone] * (ABNORMAL) HPV DNA, Low/High Risk (10/18/2024 10:01 AM EST) HPV High Risk Positive(A) Negative [facility] HPV Genotype 16 Negative Negative [facility] HPV Genotype 18 Negative Negative [facility] Comment:HPV testing performe d at [facility] (CLIA#[id number]), [address] [place] [phone].Testing for HPV was performed using the Ignacio [...] ORDERAB LES Final Result Performing Organization Address City/State/[facility] Co de Phone Number [facility] [address] [place] [phone] * Pap Smear (10/18/2024 10:01 AM EST) 10/18/2024 10:0 1 AM EST 10/19/2024 7:00 AM EST Narrative [facility] - 11/01/2024 11:40 AM EST ----- ------- Name: Naomi Chavira Age/Sex: 44/F : 1980 Unit#: [id number] Attend Dr: Marah Das [facility] Re10/18/24 Status: DEP REF Location: [facility] Disch: ----- ------- SPEC : [id number] RECD: 10/19/24 STATUS: JAROCHO GRAYSON NUM: [id number] AUNDREA: 10/18/24-[address] [facility] [address]: Marah Das ENTERED: 10/19/24 SP TYPE: Pap Smr OTHR DR: Naomi Alfonso MD ORDERED: Pap Smear Addendum Addendum 1 Entered: 11/01/24 HPV High Risk: Positive HPV Genotyping 16: [...] Received Cervix Copies To: Naomi Alfonso MD [address] [address] CONTINUED ON NEXT PAGE ----- ------- Name: Naomi Chavira Age/Sex: 44/F : 1980 Unit#: [id number] Attend Dr: Marah Das CNM Re10/18/24 Status: DEP REF Location: HO.LNP Disch: ----- ------- SPEC : [id number] RECD: 10/19/24 STATUS: JAROCHO GRAYSON NUM: [id number] AUNDREA: 10/18/24-[address] [facility] [address]: Marah Das CNM ENTERED: 10/19/24 SP TYPE: Pap Smr WARNER DR: aNomi Alfonso MD ORDERED: Pap Smear Copies To: (Continued) Marah Das CNM [facility] [address] [place] [address] [place] [phone] ----- ------- Signed (signature on file) Tiffanie Bonilla, CT ([facility]) 10/28/24 1818 (signature on file) Parker Roper CT ([facility]) 11/01/24 4600 ----- ------- END OF REPORT us Generic External Data Provider LAB CYTOLOGY ORDTello MCDOWELL Final Result Performing Organization Address City/State/[facility] Co de Phone Number [facility] [address] [place] [phone] * BI Mammogram Screening Tomosynthesis Bilateral (08/17/2024 9:00 AM EST) Anatomical Region Laterality Modality Breast Bilateral Mammography 08/17/2024 9:00 AM EST Narrative 08/23/2024 10:19 AM EST [facility] [address] [place] [address] Mammography Report Signed with Addenda Patient: Naomi Chavira MR#: [id number] : 1980 Acct:[id number] Age/Sex: 44 / F ADM Date: 08/17/24 Loc: HO.MAMMO Attending Dr: Naomi Bocanegra MD Ordering Physician: Naomi Alfonso MD Results: 1Negative Date of Service: 08/17/24 Follow Up: 1 Year From [facility] Mammogram Procedure(s): MM tomosynthesis screening BI Accession Number(s): [id number] cc: Naomi Alfonso MD ADDENDUM ADDENDUM #1 [...] by: Ena Downing DO 08/23/2024 10:11 AM [facility] Dictated By: Ena Downing DO Signed By: <Electronically signed by Ena Downing DO in OV> 08/23/24 1011 DD/ 9 TD/TT: 08/17/24929 Line Installation Supervisor: Procedure Note Donotuseinterpreter, Image - 08/29/2024 [facility] [address] [place] [address] Mammography Report Signed with Addenda Patient: Naomi Chavira MR#: [id number] : 1980Acct:[id number] Age/Sex: 44 / FADM Date: 08/17/24 Loc: HO.MAMMO Attending Dr: Naomi Bocanegra MD Ordering Physician: Naomi Alfonso MDResults: 1Negative Date of Service: 08/17/24Follow Up: 1 Year From Orig ina Mammogram Procedure(s): MM tomosynthesis screening BI Accession Number(s): [id number] cc: Naomi Alfonso MD ADDENDUM ADDENDUM #1 [...] Addendum Signed By: <Electronically signed by DO Keaynna in OV> 08/29/24 1420 Addendum Cosigned By: [...] OV> 08/23/24 1011 DD/ 9 TD/TT: 08/17/24929 Line Installation Supervisor: us Naomi Bocanegra MD IMG BI PROCEDURES Mehul lily Result - Final from Last 3 Months or Most Recently Relevant to Health Maintenance Insurance [facility] C3 HSN PARTIAL Care Teams Auto Customize Painter Relationship Specialty Start Date End Date Naomi Alfonso MD [address] [place] [address] PCP - General Family Medicine 06/19/18
[2025-09-09 11:36] LABS: D Dimer High Sensitivity < 150 NG/ML
== END 2025-09-09 09:33 | disposition home or self-care (01) ==
LOC: HO.HHCX 09:32
PROVIDERS: PCP Internal Medicine; Visit Provider Emergency Medicine
DX: R07.9 Chest pain, unspecified (principal); R05.9 Cough, unspecified
CPT/HCPCS: 36415; 71046; 85379

== ENCOUNTER → 2025-09-09 09:39 | Outpatient (BNV) | payer MEDICAID, SELFPAY | PROVIDERS: PCP Internal Medicine; Visit Provider Radiology Diagnostic Radiology | DX: R05.9 Cough, unspecified (principal); R07.89 Other chest pain | CPT/HCPCS: 71046 ==